=== PATIENT | female | born 1980 | race Caucasian/White ===

== ENCOUNTER 2016-06-12 13:23 | Emergency (ER) | payer MEDICAID ==
--- NOTE | 2016-06-12 13:38 | ER Document Report ---
ED Medical Screen (RME) - General Stated Complaint: POSSIBLE CYST UNDER ARM Mode of Arrival: Ambulatory Information source: Patient Notes: pt presents with cyst under left arm. Has appointment with surgeon on June 02 for treatment. Reports severe pain now. Prescribed tetracycline but medicaid wont' pay for med. pt reports pain, crying. I have greeted and performed a rapid initial assessment of this patient. A comprehensive ED assessment and evaluation of the patient, analysis of test results and completion of the medical decision making process will be conducted by additional ED providers. TRAVEL OUTSIDE OF THE [place] IN LAST 30 DAYS: No - Related Data Allergies/Adverse Reactions: No Known Allergies Allergy (Verified 03/26/16 04:38) Past Medical History - Past Medical History Cardiac Medical History: Reports: Hx Hypercholesterolemia, Hx Hypertension Pulmonary Medical History: Reports: Hx Asthma Renal/ Medical History: Reports: Hx Ovarian Cysts GI Medical History: Reports: Hx Gastroesophageal Reflux Disease Musculoskeltal Medical History: Reports Hx Musculoskeletal Trauma Psychiatric Medical History: Reports: Hx Bipolar Disorder Past Surgical History: Reports: Hx Section, Hx Cholecystectomy, Hx Genitourinary Surgery - D/C - Immunizations Immunizations up to date: Yes Hx Diphtheria, Pertussis, Tetanus Vaccination: Yes Physical Exam - Vital signs Vitals: Temp Pulse Resp BP Pulse Ox 98.3 F 100 20 142/92 H 97 06/12/16 13:32 06/12/16 13:32 06/12/16 13:32 06/12/16 13:32 06/12/16 13:32 Course - Vital Signs Vital signs: Temp Pulse Resp BP Pulse Ox 98.3 F 100 20 142/92 H 97 06/12/16 13:32 06/12/16 13:32 06/12/16 13:32 06/12/16 13:32 06/12/16 13:32
[2016-06-12] MEDS ORDERED: NORMAL SALINE 1000 ML 1,000 ML IV ONE (15:43)
[2016-06-12] MEDS ORDERED: KETOROLAC TROMETHAMINE INJ/PF 30 MG/1 ML SDV IV ONE (15:44)
[2016-06-12] MEDS ORDERED: HYDROMORPHONE HCL INJ/PF 2 MG/ML AMPULE IV ONE (15:44)
[2016-06-12] MEDS ORDERED: LIDOCAINE 1% INJ-PF (10 MG/ML) 30 ML SDV INFIL ONE (15:58)
--- NOTE | 2016-06-12 17:25 | ER Document Report ---
ED Skin Rash/Insect Bite/Abscs - General Chief Complaint: Abscess Stated Complaint: POSSIBLE CYST UNDER ARM Mode of Arrival: Ambulatory Information source: Patient Notes: 35 y/o F presents to ED c/o raised, tender area to left axilla over the last 3 days. Pt reports hx of chronic hidradenitis suppurativa and multiple similar episodes in the past. Marva was seen at surgical clinic by Dr. Moseley 4 days ago and prescribed course of Tetracycline and scheduled for follow-up visit in 10 days. States did not have abscess at the time but subsequently developed current symptoms. Denies fever or drainage. Marva has not filled prescription for tetracycline as she could not afford it but is going to get it filled Tuesday. TRAVEL OUTSIDE OF THE [place] IN LAST 30 DAYS: No - HPI Patient complains to provider of: Tender/swollen area Onset/Duration: Gradual Quality of pain: Achy Severity: Moderate Pain Level: 3 Skin Character: Abscess, Erythema, Tenderness Similar symptoms previously: Yes Recently seen / treated by doctor: Yes - Related Data Allergies/Adverse Reactions: No Known Allergies Allergy (Verified 06/12/16 13:37) Past Medical History - General Information source: Patient - Social History Smoking Status: Current Every Day Smoker Chew tobacco use (# tins/day): No Frequency of alcohol use: None Drug Abuse: None Lives with: Family Family History: Arthritis, CAD, CVA, DM, Hyperlipidemia, Hypertension Patient has suicidal ideation: No Patient has homicidal ideation: No - Past Medical History Cardiac Medical History: Reports: Hx Hypercholesterolemia, Hx Hypertension Pulmonary Medical History: Reports: Hx Asthma Endocrine Medical History: Reports: Hx Diabetes Mellitus Type 2 Renal/ Medical History: Reports: Hx Ovarian Cysts. Denies: Hx Peritoneal Dialysis GI Medical History: Reports: Hx Gastroesophageal Reflux Disease Musculoskeltal Medical History: Reports Hx Musculoskeletal Trauma Psychiatric Medical History: Reports: Hx Bipolar Disorder Past Surgical History: Reports: Hx Section, Hx Cholecystectomy, Hx Genitourinary Surgery - D/C - Immunizations Immunizations up to date: Yes Hx Diphtheria, Pertussis, Tetanus Vaccination: Yes Review of Systems - Review of Systems Constitutional: No symptoms reported EENT: No symptoms reported Cardiovascular: No symptoms reported Respiratory: No symptoms reported Gastrointestinal: No symptoms reported Genitourinary: No symptoms reported Female Genitourinary: No symptoms reported Musculoskeletal: No symptoms reported Skin: See HPI Hematologic/Lymphatic: No symptoms reported Neurological/Psychological: No symptoms reported -: Yes All other systems reviewed and negative Physical Exam - Vital signs Vitals: Temp Pulse Resp BP Pulse Ox 98.3 F 100 20 142/92 H 97 06/12/16 13:32 06/12/16 13:32 06/12/16 13:32 06/12/16 13:32 06/12/16 13:32 - General General appearance: Appears well, Alert In distress: None - Respiratory Respiratory status: No respiratory distress Chest status: Nontender Breath sounds: Normal Chest palpation: Normal - Cardiovascular Rhythm: Regular Heart sounds: Normal auscultation Murmur: No Pulses: Normal: Radial Normal capillary refill: Yes - Extremities General upper extremity: Normal inspection, Nontender, Normal color, Normal ROM , Normal strength, Normal temperature. No: Edema General lower extremity: Normal inspection, Nontender, Normal color, Normal ROM , Normal strength, Normal temperature, Normal weight bearing. No: Edema - Skin Skin Temperature: Warm Skin Moisture: Dry Skin Color: Normal Skin Turgor: Elastic Skin irregularity: Abscess - approximately 3 cm diameter raised area of tenderness and central fluctuance to left axilla. No surrounding cellulitis or drainage. Course - Re-evaluation Re-evalutation: 06/12/16 17:00 Pt hemodynamically stable, in no distress, afebrile, non-toxic. Pt presentation and physical exam findings were discussed with surgicalist on-call Dr. Romero who evaluated patient in the ED and performed left axilla abscess I& D at bedside. Surgicalist recommends discharge from ED with pain medication and encourage patient to fill previously prescribed Tetracycline prescription. Pt appears stable for discharge and agrees with home care, follow-up, and ED return precautions. - Vital Signs Vital signs: Temp Pulse Resp BP Pulse Ox 98.0 F 100 20 150/89 H 98 06/12/16 18:00 06/12/16 18:00 06/12/16 16:27 06/12/16 18:00 06/12/16 18:00 Discharge - Discharge Clinical Impression: Abscess Condition: Stable Disposition: HOME, SELF-CARE Additional Instructions: ABSCESS: You have an abscess (boil). This a pus-forming infection, usually due to staph. Some boils may be left to drain on their own, but most require lancing. From the time the tender lump first appears, it may be three or four days before the abscess is ready to yaya. Local heat and rest help at this stage of treatment. An antibiotic may prevent spread of the infection. Once the abscess is opened, packing may be placed into it. This is done so pus is not sealed inside by premature closure of the cavity. The packing will be removed at your follow-up visit or you may be advised to remove it yourself at home. Sometimes this packing must be replaced a few times during healing. The wound will heal with surprisingly little scar. Depending on the size and location of an abscess, healing can take one to four weeks. You may shower and wash the area around the incision site two or three times a day. Antibiotics may be prescribed, but are usually not necessary after an abscess has been drained. If you develop fever, chills, worsening pain, or increasing swelling in the area, call the doctor or return immediately. POST INCISION AND DRAINAGE: You have had an incision made to allow drainage of an abscess. The incision must remain open so that pus and debris can drain from the wound. If the abscess cavity is large, packing is placed. This keeps the tissues from collapsing and trapping pus inside, while the body shrinks the cavity. The packing may need to be replaced every day or two. The physician will instruct you on the packing. Keep a bulky dressing over the area. Replace it if it becomes saturated with blood or pus. Do not disturb the packing (if present). You may shower and cleanse the area with gentle soap and warm water two or three times a day. Local warmth may be soothing, and may promote faster healing. Return if you develop high fever or chills, or if you note spreading redness, increasing swelling, or increasing tenderness. ORAL NARCOTIC MEDICATION: You have been given a prescription for pain control. This medication is a narcotic. It's best taken with food, as nausea can result if taken on an empty stomach. Don't operate machinery or drive within six hours of taking this medication. Do not combine this medicine with alcohol, or with any medication which can cause sedation (such as cold tablets or sleeping pills) unless you get permission from the physician. Narcotics tend to cause constipation. If possible, drink plenty of fluids and eat a diet high in fiber and fruits. FOLLOW-UP CARE: Fill your prescription for the Tetracycline you were prescribed by surgeon. If you had packing placed in the abscess, remove it as instructed by the physician. If you have been referred to a physician for follow-up care, call the physicians office for an appointment as you were instructed or within the next two days. If you experience worsening or a significant change in your symptoms, return to the Emergency Department at any time for re-evaluation. Prescriptions: Hydrocodone/Acetaminophen [[place] 5-325 mg Tablet] 1 tab PO Q6H PRN #10 tablet PRN Reason: Forms: Elevated Blood Pressure Referrals: MARLON GARCÍA MD [Primary Care Provider] - Follow up as needed JOSE ROMERO MD [[facility]] - 06/14/16
--- NOTE | 2016-06-12 17:38 | OPERATIVE REPORT E ---
Operative Report NAME: EVERARDO STALLWORTH : 1980 AGE: 35Y DATE OF SURGERY: 06/12/2016 ROOM: PREOPERATIVE DIAGNOSIS: Consultation from emergency room physician for evaluation and management of severe hydradenitis of the left axillary area with a complex abscess. POSTOPERATIVE DIAGNOSIS: OPERATION: Incision and drainage of complex left axillary area soft tissue abscess. SURGEON: JOSE RICHARDSON M.D. ANESTHESIA: TISSUE REMOVED OR ALTERED: PROCEDURE DESCRIPTION: The procedure was done at the bedside after informed consent. She was given Dilaudid and Toradol IV. The area was cleansed and then also 1% lidocaine injection. An elliptical incision was made at the most indirect part of the left axillary abscess, which was about 3-4 cm size and about 20 mL of the pus was drained. Some of the loculations were broken down. The entirety of this cavity was now irrigated and lightly packed and dressings were applied. Tolerated the procedure very well. DICTATING PHYSICIAN: JOSE RICHARDSON M.D. [id number] PHY#: [id number] ID: [id number] JOB#: [id number] ACCT: [id number] cc:JOSE RICHARDSON M.D. >
[2016-06-12 18:09] VITALS: BP 150/89
== END 2016-06-12 18:05 | disposition home or self-care (01) ==
LOC: ER 13:23
DX: L02.412 Cutaneous abscess of left axilla (principal); F17.210 Nicotine dependence, cigarettes, uncomplicated
CPT/HCPCS: 99283; 96374; 96375; J3490; J1885; J1170; J7030

== ENCOUNTER 2016-08-18 12:15 | Day surgery (SDC) | payer MEDICAID ==
[2016-08-10 09:26] VITALS: BP 124/80
[~2016-08-18 12:15] MED LIST: ACETAMINOPHEN 100 ML IV ONE; BUPIVACAINE HCL 0.5 % INJ/PF 30 ML SDV ONE; CEFAZOLIN 1 GM/D5W RTU 1 GM/50 ML RTUPB IV PRN; DEXAMETHASONE SOD PHOSPHATE INJ 4 MG/1 ML VIAL ONE; DEXTROSE 5%-LACTATED RINGERS 1,000 ML IV PRN; FENTANYL CITRATE INJ/PF 250 MCG/5 ML AMPULE ONE; HYDROMORPHONE HCL INJ/PF 2 MG/ML AMPULE ONE; LACTATED RINGERS 1000 ML IV PRN; LIDOCAINE 0.5% INJ-PF (5 MG/ML) 50 ML SDV SUBCUT PRN; LIDOCAINE 1%/EPINEPHRINE INJ 20 ML VIAL ONE; LIDOCAINE 2% INJ-PF (20 MG/ML) 10 ML AMPUL ONE; MIDAZOLAM 2 MG/2 ML INJ ONE; ONDANSETRON HCL INJ/PF 4 MG/2 ML SDV ONE; PROPOFOL INJ 200 MG/20 ML VIAL IV ONE; ROCURONIUM BROMIDE INJ 50 MG/5 ML VIAL IV ONE; SUCCINYLCHOLINE CHLORIDE INJ 200 MG/10 ML VIAL ONE
[2016-08-18] MEDS ORDERED: FENTANYL CITRATE INJ/PF 100 MCG/2 ML AMPUL ONE ×2 (16:02→16:19)
[2016-08-18] MEDS ORDERED: LORAZEPAM INJ 2 MG/1 ML VIAL ONE (16:06)
[2016-08-18] MEDS ORDERED: HYDROMORPHONE HCL INJ/PF 2 MG/ML AMPULE ONE (16:06)
[2016-08-18] MEDS ORDERED: ALBUTEROL SULFATE HFA (90 MCG/PUFF) 200 PUFF/8.5 GM MDI IH ONE (16:16)
--- NOTE | 2016-08-18 16:42 | OPERATIVE REPORT E ---
Operative Report NAME: EVERARDO STALLWORTH : 1980 AGE: 35Y DATE OF SURGERY: ROOM: PREOPERATIVE DIAGNOSIS: ADVANCED, CHRONIC AXILLARY HIDRADENITIS SUPPURATIVA. POSTOPERATIVE DIAGNOSIS: ADVANCED, CHRONIC AXILLARY HIDRADENITIS SUPPURATIVA. OPERATION: Wide, complete excision of bilateral axillary skin and subcutaneous tissue including all involved hidradenitis suppurativa infection and chronic tracts with closure over bilateral axillary drains. SURGEON: ASHLEY MONTESINOS M.D. EDUCATIONAL/DEVELOPMENT ASSISTANT: Aiden Dennis ANESTHESIA: General. COMPLICATIONS: None. ESTIMATED BLOOD LOSS: 150 mL. DRAINS: Two large Liu in left and right axilla. PROCEDURE: The patient was seen in the preop holding area, taken to the operating room where general anesthesia was induced. Of note, patient is continuing to smoke and has significant bronchospasm after induction. The breasts were taped inferiorly, both arms abducted and both axillae were exposed. The findings were significant for active acute infection as well as chronic infection involving extensive tissue of both axilla extending over a surface area of approximately 10 cm x 15 cm on each side. Because the patient had failed outpatient and inpatient medical management over a 25-year period, it was felt that we had little to offer the patient shy of complete tissue extirpation. We proceeded on the patient's right side after a surgical timeout was conducted. Using a #10 blade, we created a large, crescent-shaped, elliptical excision of skin going from the anterior axilla towards the chest wall and then back towards the posterior axilla. The incision was longer and deeper on the chest wall than on the axilla. Skin and superficial as well as deep subcutaneous tissue was excised using cautery and scissors. The final portion of skin and subcutaneous tissue contained all involved infection. The final defect was approximately 10 x 15 cm. A large Liu drain was placed in the inferior skin flap, secured to the skin with 2-0 Prolene suture. The defect was closed with running as well as interrupted 2-0 Vicryl suture and approximated with skin glue. The identical procedure was performed on the left axilla, again performing a wide excision down to the deep subcutaneous tissue. Again, all infection was excised with the tissue flap. Another Liu was placed in the inferior skin flap along the chest wall and the wound closed with running and interrupted 2-0 Vicryl suture, skin glue applied. Both drains hooked to bulb suction which created a nice negative pressure. Sterile dressings were applied. The patient tolerated the procedure well, extubated and taken to the recovery room in stable condition at the time of this dictation. DICTATING PHYSICIAN: ASHLEY MONTESINOS M.D. [id number] PHY#: [id number] ID: [id number] JOB#: [id number] ACCT: [id number] cc:ASHLEY MONTESINOS M.D. >
[2016-08-18] MEDS ORDERED: OXYCODONE-ACETAMINOPHEN 5-325 MG TABLET ONE (17:09)
== END 2016-08-18 18:15 | disposition home or self-care (01) ==
LOC: OROUT 12:15
PROVIDERS: ATTEND Surgery
PROC: 0JBD0ZZ Excision of Right Upper Arm Subcutaneous Tissue and Fascia, Open Approach (ICD-10-PCS; 2016-08-18)
PROC: 0JBF0ZZ Excision of Left Upper Arm Subcutaneous Tissue and Fascia, Open Approach (ICD-10-PCS; principal; 2016-08-18 14:30)
DX: L73.2 Hidradenitis suppurativa (principal); M19.90 Unspecified osteoarthritis, unspecified site; F32.9 Major depressive disorder, single episode, unspecified; F17.210 Nicotine dependence, cigarettes, uncomplicated; E66.9 Obesity, unspecified; E78.00 Pure hypercholesterolemia, unspecified; E11.9 Type 2 diabetes mellitus without complications; G47.00 Insomnia, unspecified; Z79.84 Long term (current) use of oral hypoglycemic drugs; Z79.899 Other long term (current) drug therapy; G47.33 Obstructive sleep apnea (adult) (pediatric); Z68.43 Body mass index [BMI] 50.0-59.9, adult
CPT/HCPCS: 82962; 81025; 88304 ×2; 11450; J2250; J0690; J3490 ×3; J1100; J3010 ×2; J1170; J2060; J0330; J2405; J2704; J0131; 400

== ENCOUNTER 2016-09-02 15:00 | Day surgery (SDC) | payer MEDICAID ==
[~2016-09-02 15:00] MED LIST changes: -ACETAMINOPHEN 100 ML IV ONE; -BUPIVACAINE HCL 0.5 % INJ/PF 30 ML SDV ONE; -CEFAZOLIN 1 GM/D5W RTU 1 GM/50 ML RTUPB IV PRN; -DEXAMETHASONE SOD PHOSPHATE INJ 4 MG/1 ML VIAL ONE; -DEXTROSE 5%-LACTATED RINGERS 1,000 ML IV PRN; -FENTANYL CITRATE INJ/PF 250 MCG/5 ML AMPULE ONE; -HYDROMORPHONE HCL INJ/PF 2 MG/ML AMPULE ONE; -LACTATED RINGERS 1000 ML IV PRN; -LIDOCAINE 0.5% INJ-PF (5 MG/ML) 50 ML SDV SUBCUT PRN; -LIDOCAINE 1%/EPINEPHRINE INJ 20 ML VIAL ONE; -LIDOCAINE 2% INJ-PF (20 MG/ML) 10 ML AMPUL ONE; -MIDAZOLAM 2 MG/2 ML INJ ONE; -ONDANSETRON HCL INJ/PF 4 MG/2 ML SDV ONE; -PROPOFOL INJ 200 MG/20 ML VIAL IV ONE; -ROCURONIUM BROMIDE INJ 50 MG/5 ML VIAL IV ONE
[2016-09-02] MEDS ORDERED: VANCOMYCIN HCL 1,000 MG in DEXTROSE 5%-WATER 250 ML IV PRN (15:30)
[2016-09-02] MEDS ORDERED: NORMAL SALINE 1000 ML 1,000 ML IV PRN (15:46)
[2016-09-02 16:02] LABS: HEMOGLOBIN 12.3 g/dL (12.0-15.5); HGB HCT DIFFERENCE -0.1; MEAN CORPUSCULAR HEMOGLOBIN 27.9 pg (27.0-33.4); MEAN CORPUSCULAR HGB CONC 33.2 g/dL (32.0-36.0); MEAN CORPUSCULAR VOLUME 84 fl (80-97); RED BLOOD COUNT 4.42 10^6/uL (3.72-5.28); RED CELL DISTRIBUTION WIDTH 14.7 % (11.5-14.0); WHITE BLOOD COUNT 8.8 10^3/uL (4.0-10.5)
[2016-09-02 16:27] LABS: ANION GAP 10 (5-19); BLOOD UREA NITROGEN 15 mg/dL (7-20); CARBON DIOXIDE 25 mmol/L (22-30); CHLORIDE 105 mmol/L (98-107); CREATININE RESULT 0.74 mg/dL (0.52-1.25); GLUCOSE 92 mg/dL (75-110); POTASSIUM 4.2 mmol/L (3.6-5.0)
[2016-09-02] MEDS ORDERED: LIDOCAINE 0.5% INJ-PF (5 MG/ML) 50 ML SDV ONE (17:13)
[2016-09-02] MEDS ORDERED: ONDANSETRON HCL INJ/PF 4 MG/2 ML SDV ONE (17:23)
[2016-09-02] MEDS ORDERED: HYDROMORPHONE HCL INJ/PF 2 MG/ML AMPULE ONE (17:23)
[2016-09-02] MEDS ORDERED: LIDOCAINE 2% INJ-PF (20 MG/ML) 10 ML AMPUL ONE (17:23)
[2016-09-02] MEDS ORDERED: MIDAZOLAM 2 MG/2 ML INJ ONE (17:23)
[2016-09-02] MEDS ORDERED: IBUPROFEN INJ 800 MG/8 ML VIAL IV ONE (17:24)
[2016-09-02] MEDS ORDERED: PROPOFOL INJ 200 MG/20 ML VIAL IV ONE (17:24)
[2016-09-02] MEDS ORDERED: ACETAMINOPHEN 100 ML IV ONE (17:24)
--- NOTE | 2016-09-02 17:33 | HISTORY AND PHYSICAL E ---
History and Physical NAME: EVERARDO STALLWORTH : 1980 AGE: 35Y ADMITTED: 09/02/2016 ROOM: 209 CHIEF COMPLAINT: Abdominal pain. HISTORY OF PRESENT ILLNESS: This is a 35-year-old female who complained of abdominal pain for the past 2 to 3 days. She was being seen at the surgical clinic for hydradenitis when she complained that she had some abdominal pain for the past 2 days. She was then examined and noted to have abdominal abscess. She claims she had a cyst in that area just to the right of the umbilicus. This was bigger yesterday according to the patient, but her tried squeeze out some of the secretions, and size has gotten to half from yesterday. PAST MEDICAL HISTORY: History of hydradenitis. PAST SURGICAL HISTORY: Right axilla 2 weeks ago and today the left side. Both of these were done by Dr. Moseley. She had a tubal ligation, section about 2 years ago. She uses CPAP for the past 5 years. She has been diagnosed with diabetes for the past 2 years and has been taking metformin twice a day. SOCIAL HISTORY: Smokes about a pack a day but is on a nicotine patch at this time. Denies drinking or drug use. ALLERGIES: None known. FAMILY HISTORY: Positive for diabetes and heart disease and strokes. REVIEW OF SYSTEMS: Complaining of headaches which have been attributed to using the CPAP. Denies any sore throat, cough, or chest pain. No shortness of breath. Pains in both axillae attributed to hydradenitis. No diarrhea, constipation, or dysuria. No nausea or vomiting. No balance problems. No ear or visual problems. No easy bruisability. The rest of the systems are unremarkable. The patient complained of pain in the abdominal wall. PHYSICAL EXAMINATION: GENERAL: A well-developed, slightly obese female, alert and oriented complaining of abdominal wall pain. NECK: Supple. No thyromegaly. LUNGS: Clear. HEART: Regular sinus rhythm. ABDOMEN: Revealed mass in the right side to the umbilicus roughly measuring about 8 x 8 cm. The patient claims that she is known to have a cyst at this area, and she feels that it has been infected and now it is an abscess. EXTREMITIES: No edema. IMPRESSION: 1. Abdominal wall abscess. 2. Diabetes mellitus. PLAN: 1. Start her on IV antibiotics. 2. Drain the abscess in the OR and lavage it and pack the area. DICTATING PHYSICIAN: JENNY SQUIRES M.D. [id number] PHY#: [id number] ID: [id number] JOB#: [id number] ACCT: [id number] cc:JENNY SQUIRES M.D. >
[2016-09-02] MEDS ORDERED: MEPERIDINE HCL/PF INJ 25 MG/1 ML DISP.SYRIN IV PRN (18:06)
[2016-09-02] MEDS ORDERED: MORPHINE SULFATE 10 MG/ML INJ IV PRN ×2 (18:06→19:05)
[2016-09-02] MEDS ORDERED: DIPHENHYDRAMINE HCL 50 MG/ML VIAL IV PRN (18:06)
[2016-09-02] MEDS ORDERED: OXYCODONE-ACETAMINOPHEN 5-325 MG TABLET PO PRN ×3 (18:06→19:06)
[2016-09-02] MEDS ORDERED: FENTANYL CITRATE INJ/PF 100 MCG/2 ML AMPUL IV PRN ×3 (18:06)
[2016-09-02] MEDS ORDERED: PROMETHAZINE HCL INJ 25 MG/1 ML VIAL IV PRN ×2 (18:06)
[2016-09-02] MEDS ORDERED: ONDANSETRON HCL INJ/PF 4 MG/2 ML SDV IV PRN (18:06)
[2016-09-02] MEDS: FENTANYL CITRATE INJ/PF 100 MCG/2 ML AMPUL ONE ×2 (19:13→19:18)
--- NOTE | 2016-09-02 19:54 | OPERATIVE REPORT E ---
Operative Report NAME: EVERARDO STALLWORTH : 1980 AGE: 35Y DATE OF SURGERY: 09/02/2016 ROOM: 209 PREOPERATIVE DIAGNOSIS: Abscess of the abdominal wall. POSTOPERATIVE DIAGNOSIS: Abscess of the abdominal wall. OPERATION: Incision and drainage and lavage of abdominal wall abscess. SURGEON: JENNY SQUIRES M.D. ANESTHESIA: General. INDICATIONS: This 35-year-old female who is a diabetic noted to have pain along the abdominal wall just to the right of the umbilicus. The patient claims she had a cyst of this area and it may have been infected. She has been complaining of pain in the area for the past 2-3 days and worse today. Her tried to drain it yesterday, and the size of the inflamed area has somewhat decreased. DESCRIPTION OF PROCEDURE: After adequate general anesthesia, the patient was placed in supine position and the abdomen prepped and draped in the usual sterile fashion. After adequate timeout, a small incision made over the area that is partly draining. A lot of pus was expressed out, and cultures were obtained. With the use of a probe, the area of the abscess was noted to be at least 3 cm distally, and this was then incised over the hemostat. There was more drainage noted. The hemostat was again placed proximally, and this time, a shallower, roughly about 1 cm, was noted. This was then incised. Hemostasis was then obtained with cautery. The cavity roughly measured about 4 cm in diameter. A pulsed lavage was then done to irrigate the area, and at least 3 L of saline were used. Next, the cavity which may be the wall of the cyst was subsequently coagulated with cautery. Hopefully, if this is a true cyst, the risks of it coming back will be less. Adequate hemostasis was then noted. The cavity roughly measured about 4 cm in diameter by about 3 cm deep. Next, the cavity was then packed with 1/4-inch Iodoform gauze. Sterile dressing was placed on top. Needle, instrument and sponge counts were all correct, and estimated blood loss was minimal. The patient tolerated the procedure well and went to recovery room in satisfactory condition. DICTATING PHYSICIAN: JENNY SQUIRES M.D. [id number] PHY#: [id number] ID: [id number] JOB#: [id number] ACCT: [id number] cc:JENNY SQUIRES M.D. >
[2016-09-02 23:06] VITALS: BP 146/80
--- NOTE | 2016-09-11 06:39 | DISCHARGE SUMMARY E ---
Discharge Summary NAME: EVERARDO STALLWORTH : 1980 AGE: 35Y ADMITTED: 09/02/2016 DISCHARGED: 09/02/2016 PROCEDURE DONE: Incision and drainage of abdominal wall abscess on 09/02/[address] Padilla. FINAL DIAGNOSIS: Abdominal wall abscess. SUMMARY: This is a 35-year-old female who underwent incision and drainage of abdominal wall abscess. It was also pulsed lavaged, and the wound subsequently packed with Iodoform gauze. Postoperatively, patient's symptoms decreased and given p.o. antibiotics and pain medication on the day of discharge which was later that day, 09/02/2016. Patient to be followed up in the Surgical Clinic primarily for removal of the packing in the next 2 days. Patient advised to have regular diet and no heavy lifting for the next 2-3 days. DICTATING PHYSICIAN: JENNY PADILLA M.D. [id number] PHY#: [id number] ID: [id number] JOB#: [id number] ACCT: [id number] cc:JENNY PADILLA M.D. >
== END 2016-09-02 23:05 | disposition home or self-care (01) ==
LOC: OROUT 15:00 → UNDODISIN 23:05 → OROUT 23:05 → EDSTATUS 09-06 10:32
PROVIDERS: ATTEND Surgery
PROC: 0H97XZZ Drainage of Abdomen Skin, External Approach (ICD-10-PCS; principal; 2016-09-02 17:30)
DX: L02.211 Cutaneous abscess of abdominal wall (principal); B95.4 Other streptococcus as the cause of diseases classified elsewhere; E11.9 Type 2 diabetes mellitus without complications; F17.210 Nicotine dependence, cigarettes, uncomplicated; E66.9 Obesity, unspecified; M19.90 Unspecified osteoarthritis, unspecified site; E78.00 Pure hypercholesterolemia, unspecified; F32.9 Major depressive disorder, single episode, unspecified; Z68.43 Body mass index [BMI] 50.0-59.9, adult; Z79.84 Long term (current) use of oral hypoglycemic drugs
CPT/HCPCS: 10060; 36415; 87070; 87205; 85027; 87075; 87077; 80048; J2250; J3010; J1170; J0330; J2405; J7060; J2704; J3370; J3490; J0131; J1741; 300; 800; A6266

== ENCOUNTER 2016-11-19 05:37 | Emergency (ER) | payer MEDICAID ==
[2016-11-19] MEDS ORDERED: PREDNISONE 20 MG TABLET PO ONE (06:22)
[2016-11-19] MEDS ORDERED: FAMOTIDINE 20 MG TABLET PO ONE (06:22)
[2016-11-19] MEDS ORDERED: DIPHENHYDRAMINE HCL 25 MG CAPSULE PO ONE (06:33)
--- NOTE | 2016-11-19 06:35 | ER Document Report ---
ED General - General Chief Complaint: Allergic Reaction Stated Complaint: POSSIBLE ALLERGIC REACTION Time Seen by Provider: 11/19/16 06:27 Mode of Arrival: Ambulatory Information source: Patient Notes: 36-year-old female presents with complaints of allergic reaction. Patient notes that she awoke around 4:00 this morning with her hands and feet itching. Patient denies any shortness of breath difficulty breathing or swallowing. Notes initially her tongue was swelling but after she took 125 mg Benadryl her symptoms have since resolved. Patient does admit to swelling in the hand still TRAVEL OUTSIDE OF THE [place] IN LAST 30 DAYS: No - HPI Onset: Just prior to arrival Onset/Duration: Sudden Quality of pain: No pain Severity: Mild Pain Level: Denies Associated symptoms: Other Exacerbated by: Denies Relieved by: Denies Similar symptoms previously: No Recently seen / treated by doctor: No - Related Data Allergies/Adverse Reactions: No Known Allergies Allergy (Verified 08/10/16 09:29) Past Medical History - Social History Smoking Status: Never Smoker Cigarette use (# per day): No Chew tobacco use (# tins/day): No Smoking Education Provided: No Family History: Arthritis, CAD, CVA, DM, Hyperlipidemia, Hypertension Patient has suicidal ideation: No Patient has homicidal ideation: No - Past Medical History Cardiac Medical History: Reports: Hx Hypercholesterolemia, Hx Hypertension - borderline no meds Denies: Hx Coronary Artery Disease, Hx Heart Attack Pulmonary Medical History: Denies: Hx Asthma, Hx Bronchitis, Hx COPD, Hx Pneumonia Neurological Medical History: Denies: Hx Cerebrovascular Accident, Hx Seizures Endocrine Medical History: Reports: Hx Diabetes Mellitus Type 2 Renal/ Medical History: Reports: Hx Ovarian Cysts. Denies: Hx Peritoneal Dialysis GI Medical History: Reports: Hx Gastroesophageal Reflux Disease Musculoskeltal Medical History: Reports Hx Arthritis - rt knee, Reports Hx Musculoskeletal Trauma Psychiatric Medical History: Reports: Hx Bipolar Disorder, Hx Depression Past Surgical History: Reports: Hx Section, Hx Cholecystectomy, Hx Genitourinary Surgery - D/C - Immunizations Immunizations up to date: Yes Hx Diphtheria, Pertussis, Tetanus Vaccination: Yes Review of Systems - Review of Systems Notes: REVIEW OF SYSTEMS: CONSTITUTIONAL : Denies fever, chills, or sweats. Denies recent illness. EENT: Denies eye, ear, throat, or mouth pain or symptoms. Denies nasal or sinus congestion or discharge. Denies throat, tongue, or mouth swelling or difficulty swallowing. CARDIOVASCULAR: Denies chest pain. Denies palpitations or racing or irregular heart beat. Denies ankle edema. RESPIRATORY: Denies cough, cold, or chest congestion. Denies shortness of breath, difficulty breathing, or wheezing. GASTROINTESTINAL: Denies abdominal pain or distention. Denies nausea, vomiting , or diarrhea. Denies blood in vomitus, stools, or per rectum. Denies black, tarry stools. Denies constipation. GENITOURINARY: Denies difficulty urinating, painful urination, burning, frequency, blood in urine, or discharge. FEMALE GENITOURINARY: Denies vaginal bleeding, heavy or abnormal periods, irregular periods. Denies vaginal discharge or odor. MUSCULOSKELETAL: Denies back or neck pain or stiffness. Denies joint pain or swelling. SKIN: Admits to itching swelling of the hands and feet HEMATOLOGIC : Denies easy bruising or bleeding. LYMPHATIC: Denies swollen, enlarged glands. NEUROLOGICAL: Denies confusion or altered mental status. Denies passing out or loss of consciousness. Denies dizziness or lightheadedness. Denies headache. Denies weakness or paralysis or loss of use of either side. Denies problems with gait or speech. Denies sensory loss, numbness, or tingling. Denies seizures. PSYCHIATRIC: Denies anxiety or stress. Denies depression, suicidal ideation, or homicidal ideation. ALL OTHER SYSTEMS REVIEWED AND NEGATIVE. PHYSICAL EXAMINATION: GENERAL: Well-appearing, well-nourished and in no acute distress. HEAD: Atraumatic, normocephalic. EYES: Pupils equal round and reactive to light, extraocular movements intact, conjunctiva are normal. ENT: Nares patent, oropharynx clear without exudates. Moist mucous membranes. NECK: Normal range of motion, supple without lymphadenopathy LUNGS: Breath sounds clear to auscultation bilaterally and equal. No wheezes rales or rhonchi. HEART: Regular rate and rhythm without murmurs ABDOMEN: Soft, nontender, nondistended abdomen. No guarding, no rebound. No masses appreciated. Female : deferred Musculoskeletal: Normal range of motion, no pitting or edema. No cyanosis. NEUROLOGICAL: Cranial nerves grossly intact. Normal speech, normal gait. Normal sensory, motor exams PSYCH: Normal mood, normal affect. SKIN: Mild edema of the bilateral hands Dictation was performed using [employer] voice recognition software Physical Exam - Vital signs Vitals: Temp Pulse Resp BP Pulse Ox 98.5 F 81 20 165/89 H 95 11/19/16 05:50 11/19/16 05:50 11/19/16 05:50 11/19/16 05:50 11/19/16 05:50 Course - Re-evaluation Re-evalutation: 11/19/16 06:44 There is absolutely no airway involvement patient is resting comfortably symptoms have been ongoing now for approximately 2-1/2 hours and the patient's in no distress. I expect this to be a mild allergic reaction, she will be given steroids with understand that her diabetes may worsen, patient states she understands this. Patient instructed to return immediately if there is any worsening symptoms any difficulty breathing. After performing a Medical Screening Examination, I estimate there is LOW risk for AIRWAY COMPROMISE, ANAPHYLAXIS, CELLULITIS, EPIGLOTTIS, or NECROTIZING FASCIITIS, thus I consider the discharge disposition reasonable. Also, there is no evidence or peritonitis, sepsis, or toxicity. I have reevaluated this patient multiple times and no significant life threatening changes are noted. The patient and I have discussed the diagnosis and risks, and we agree with discharging home with close follow-up with the understanding that symptoms and presentations can change. We also discussed returning to the Emergency Department immediately if new or worsening symptoms occur. We have discussed the symptoms which are most concerning (e.g., difficulty breathing or swallowing , fever, changing or worsening pain) that necessitate immediate return. - Vital Signs Vital signs: Temp Pulse Resp BP Pulse Ox 98.5 F 81 20 165/89 H 95 11/19/16 05:50 11/19/16 05:50 11/19/16 05:50 11/19/16 05:50 11/19/16 05:50 Discharge - Discharge Clinical Impression: Allergic reaction Qualifiers: Encounter type: initial encounter Qualified Code(s): T78.40XA - Allergy, unspecified, initial encounter HTN (hypertension) Qualifiers: Hypertension type: essential hypertension Qualified Code(s): I10 - Essential ( primary) hypertension Condition: Stable Disposition: HOME, SELF-CARE Instructions: Acute Allergic Reaction ([facility]) Prescriptions: Diphenhydramine HCl [Benadryl] 50 mg PO Q6 5 Days capsule Famotidine [Pepcid 20 mg Tablet] 20 mg PO DAILY #5 tablet Prednisone 60 mg PO DAILY #5 tablet Referrals: ADOLFO SHIPLEY MD [NO LOCAL MD] - Follow up tomorrow
[2016-11-19 06:50] VITALS: BP 160/82
== END 2016-11-19 06:51 | disposition home or self-care (01) ==
LOC: ER 05:37
DX: T78.40XA Allergy, unspecified, initial encounter (principal); I10 Essential (primary) hypertension
CPT/HCPCS: 99283; J3490 ×2; J7512

== ENCOUNTER 2017-08-06 20:37 | Emergency (ER) | payer SELFPAY ==
[2017-08-06] MEDS ORDERED: HYDROMORPHONE HCL INJ/PF 2 MG/ML AMPULE IM ONE (23:19)
[2017-08-06] MEDS ORDERED: HYDROCODONE/ACETAMINOPHEN 5-325 MG (6 TAB/ER DISP) PO PRN (23:20)
[2017-08-06] MEDS ORDERED: CEFTRIAXONE INJ 1000 MG VIAL IM ONE (23:20)
[2017-08-06] MEDS ORDERED: LIDOCAINE 1% INJ-PF (10 MG/ML) 30 ML SDV INJ ONE (23:20)
--- NOTE | 2017-08-06 23:30 | ER Document Report ---
ED General - General Chief Complaint: Cyst Stated Complaint: POSSIBLE ABSCESS Time Seen by Provider: 08/06/17 22:25 Mode of Arrival: Ambulatory Information source: Patient TRAVEL OUTSIDE OF THE [place] IN LAST 30 DAYS: No - HPI Notes: 28-year-old female presents to the ER today with complaints of right-sided groin pain, reports she feels like she is starting with a cellulitis possible abscess. Has not been applying warm compress to site. Pain is 8 out of 10, throbbing achy. Has tried [id number] ibuprofen without relief. History of abscesses in the past. Worse with time, nothing makes better. Denies fevers , chills, chest pain,palpitations, shortness of breath, dyspnea, nausea, vomiting, diarrhea, abdominal pain, hematuria,blurred vision, double vision, loss of vision, speech changes, LH, dizziness, syncope, headaches, wheezing, ST , URI, neck pain, weakness, bowel or bladder dysfunction, saddle anesthesia, numbness or tingling in bilateral upper or lower extremities equally, muscle paralysis, weakness in bilateral upper or lower extremities equally or rash. Denies IV drug use. - Related Data Allergies/Adverse Reactions: No Known Allergies Allergy (Verified 08/10/16 09:29) Past Medical History - General Information source: Patient - Social History Smoking Status: Unknown if Ever Smoked Family History: Arthritis, CAD, CVA, DM, Hyperlipidemia, Hypertension Patient has suicidal ideation: No Patient has homicidal ideation: No - Past Medical History Cardiac Medical History: Reports: Hx Hypercholesterolemia, Hx Hypertension - borderline no meds Denies: Hx Coronary Artery Disease, Hx Heart Attack Pulmonary Medical History: Denies: Hx Asthma, Hx Bronchitis, Hx COPD, Hx Pneumonia Neurological Medical History: Denies: Hx Cerebrovascular Accident, Hx Seizures Endocrine Medical History: Reports: Hx Diabetes Mellitus Type 2 Renal/ Medical History: Reports: Hx Ovarian Cysts. Denies: Hx Peritoneal Dialysis GI Medical History: Reports: Hx Gastroesophageal Reflux Disease Musculoskeltal Medical History: Reports Hx Arthritis - rt knee, Reports Hx Musculoskeletal Trauma Psychiatric Medical History: Reports: Hx Bipolar Disorder, Hx Depression Past Surgical History: Reports: Hx Section, Hx Cholecystectomy, Hx Genitourinary Surgery - D/C - Immunizations Immunizations up to date: Yes Hx Diphtheria, Pertussis, Tetanus Vaccination: Yes Review of Systems - Review of Systems Constitutional: No symptoms reported EENT: No symptoms reported Cardiovascular: No symptoms reported Respiratory: No symptoms reported Gastrointestinal: No symptoms reported Genitourinary: No symptoms reported Female Genitourinary: No symptoms reported Musculoskeletal: No symptoms reported Skin: See HPI Hematologic/Lymphatic: No symptoms reported Neurological/Psychological: No symptoms reported Physical Exam - Vital signs Vitals: Temp Pulse Resp BP Pulse Ox 99.2 F 84 18 149/60 H 96 08/06/17 21:19 08/06/17 21:19 08/06/17 21:19 08/06/17 21:19 08/06/17 21:19 - Notes Notes: PHYSICAL EXAMINATION: GENERAL: Well-appearing, well-nourished and in no acute distress. HEAD: Atraumatic, normocephalic. EYES: Pupils equal round and reactive to light, extraocular movements intact, conjunctiva are normal. ENT: Nares patent, oropharynx clear without exudates. Moist mucous membranes. NECK: Normal range of motion, supple without lymphadenopathy LUNGS: Breath sounds clear to auscultation bilaterally and equal. No wheezes rales or rhonchi. HEART: Regular rate and rhythm without murmurs ABDOMEN: Soft, nontender, nondistended abdomen. No guarding, no rebound. No masses appreciated. Female : deferred, metal sprayer protective coating in room [place]. 1 cm x 1 cm area of erythema, induration, swelling, no fluctuance noted. No surrounding erythema or lymphadenopathy. No open wounds or drainage. Musculoskeletal: Normal range of motion, no pitting or edema. No cyanosis. NEUROLOGICAL: Cranial nerves grossly intact. Normal speech, normal gait. Normal sensory, motor exams PSYCH: Normal mood, normal affect. SKIN: Warm, Dry, normal turgor, no rashes or lesions noted. Course - Re-evaluation Re-evalutation: Patient presents with symptoms most consistent with an acute cellulitis. Vitals within normal limits. Patient does not meet sepsis criteria is overall very well in appearance. Exam and history are not consistent with DVT. Patient will be started on coverage for both staph and strep. Discussed with patient the importance of applying hot compress 20 minutes on 20 minutes off several times a day, take antibiotic as directed and avoid manipulating the area. On reevaluation, patient's pain reduced from 10 out of 10 to 4 out of 10. Discussed importance of not driving, drinking alcohol or operating heavy machinery while taking medication. At this time will discharge with return precautions and follow-up recommendations. Verbal discharge instructions given a the bedside and opportunity for questions given. Medication warnings reviewed. Patient is in agreement with this plan and has verbalized understanding of return precautions and the need for primary care follow-up in the next 24-72 hours After performing a Medical Screening Examination, I estimate there is LOW risk for COMPARTMENT SYNDROME, TENDON RUPTURE, ACUTE NEUROVASCULAR INJURY, or RETAINED FOREIGN BODY, thus I consider the discharge disposition reasonable. Also, there is no evidence or peritonitis, sepsis, or toxicity. I have reevaluated this patient multiple times and no significant life threatening changes are noted. The patient and I have discussed the diagnosis and risks, and we agree with discharging home with close follow-up with the understanding that symptoms and presentations can change. We also discussed returning to the Emergency Department immediately if new or worsening symptoms occur. We have discussed the symptoms which are most concerning (e.g., changing or worsening pain, fever, numbness, weakness, cool or painful digits) that necessitate immediate return. - Vital Signs Vital signs: Temp Pulse Resp BP Pulse Ox 99.2 F 84 18 149/60 H 96 08/06/17 21:19 08/06/17 21:19 08/06/17 21:19 08/06/17 21:19 08/06/17 21:19 Discharge - Discharge Clinical Impression: Cellulitis Qualifiers: Site of cellulitis: trunk Site of cellulitis of trunk: groin Qualified Code(s) : L03.314 - Cellulitis of groin Condition: Good Disposition: ADMITTED OBSERVATION Instructions: MRSA Cellulitis ([facility]), Cellulitis ([facility]) Additional Instructions: Warm compress 20 minutes on 20 minutes off several times a day. Take antibiotic as directed. Do not drive, drink or operate heavy machinery while taking [place]. Follow-up with PCP within 1-2 days. Return to the emergency room if symptoms become worse. Return immediately for any new or worsening symptoms. Follow up with primary care provider, call tomorrow to make followup appointment. Prescriptions: Cephalexin [Cephalexin 500 MG Tablet] 1 tab PO BID #20 tablet Sulfamethoxazole/Trimethoprim [Bactrim Ds Tablet] 1 each PO BID #20 tablet Referrals: HONORIO YOO MD [ACTIVE STAFF] - Follow up as needed
[2017-08-07 00:10] VITALS: BP 130/87
== END 2017-08-07 00:10 | disposition home or self-care (01) ==
LOC: ER 20:37
DX: L03.314 Cellulitis of groin (principal); R10.31 Right lower quadrant pain; I10 Essential (primary) hypertension; E11.9 Type 2 diabetes mellitus without complications
CPT/HCPCS: 99284; 96372; J3490; J1170; J0696

== ENCOUNTER 2018-05-02 13:37 | Emergency (ER) | payer SELFPAY ==
[2018-05-02 13:51] VITALS: BP 134/84
[2018-05-02] MEDS ORDERED: OXYCODONE-ACETAMINOPHEN 5-325 MG TABLET PO ONE (14:14)
--- NOTE | 2018-05-02 14:16 | ER Document Report ---
ED Medical Screen (RME) - General Chief Complaint: Abscess Stated Complaint: SKIN ISSUE Time Seen by Provider: 05/02/18 13:47 TRAVEL OUTSIDE OF THE [place] IN LAST 30 DAYS: No - HPI Patient complains to provider of: Abscess in right axilla - Related Data Allergies/Adverse Reactions: No Known Allergies Allergy (Verified 05/02/18 13:38) Past Medical History - Social History Chew tobacco use (# tins/day): No Frequency of alcohol use: None Drug Abuse: None - Past Medical History Cardiac Medical History: Reports: Hx Hypercholesterolemia, Hx Hypertension - borderline no meds Denies: Hx Coronary Artery Disease, Hx Heart Attack Pulmonary Medical History: Denies: Hx Asthma, Hx Bronchitis, Hx COPD, Hx Pneumonia Neurological Medical History: Denies: Hx Cerebrovascular Accident, Hx Seizures Endocrine Medical History: Reports: Hx Diabetes Mellitus Type 2 Renal/ Medical History: Reports: Hx Ovarian Cysts. Denies: Hx Peritoneal Dialysis GI Medical History: Reports: Hx Gastroesophageal Reflux Disease Musculoskeltal Medical History: Reports Hx Arthritis - rt knee, Reports Hx Musculoskeletal Trauma Psychiatric Medical History: Reports: Hx Bipolar Disorder, Hx Depression Past Surgical History: Reports: Hx Section, Hx Cholecystectomy, Hx Genitourinary Surgery - D/C - Immunizations Immunizations up to date: Yes Hx Diphtheria, Pertussis, Tetanus Vaccination: Yes Physical Exam - Vital signs Vitals: Temp Pulse Resp BP Pulse Ox 98.2 F 85 18 134/84 H 99 05/02/18 13:50 05/02/18 13:50 05/02/18 13:50 05/02/18 13:50 05/02/18 13:50 Course - Vital Signs Vital signs: Temp Pulse Resp BP Pulse Ox 98.2 F 85 18 134/84 H 99 05/02/18 13:50 05/02/18 13:50 05/02/18 13:50 05/02/18 13:50 05/02/18 13:50
[2018-05-02] MEDS ORDERED: LIDOCAINE 1% INJ-PF (10 MG/ML) 30 ML SDV INJ ONE (14:27)
--- NOTE | 2018-05-02 14:33 | ER Document Report ---
HPI - HPI Time Seen by Provider: 05/02/18 13:47 Pain Level: 4 Notes: Patient is a 37-year-old female with a history of hidradenitis who presents emergency department complaining of an abscess to her right anterior axilla has been there for the last few days. Patient states that she has had multiple abscesses in these areas that needed an I&D performed. Patient states that she has not noticed any red streaking or purulence. She is eating and drinking without difficult he. She is urinating normally and denies drug allergies. No history of MRSA. No IV drug use. Denies any headache, fever, neck pain, URI, sore throat, chest pain, palpitations, syncope, cough, shortness of breath, wheeze, dyspnea, abdominal pain, nausea/vomiting/diarrhea, urinary retention, dysuria, hematuria. - ROS Systems Reviewed and Negative: Yes All other systems reviewed and negative - REPRODUCTIVE Reproductive: DENIES: : - DERM Skin Color: Normal Past Medical History - Social History Smoking Status: Current Every Day Smoker Chew tobacco use (# tins/day): No Frequency of alcohol use: None Drug Abuse: None Family History: Arthritis, CAD, CVA, DM, Hyperlipidemia, Hypertension Patient has suicidal ideation: No Patient has homicidal ideation: No - Past Medical History Cardiac Medical History: Reports: Hx Hypercholesterolemia, Hx Hypertension - borderline no meds Denies: Hx Coronary Artery Disease, Hx Heart Attack Pulmonary Medical History: Denies: Hx Asthma, Hx Bronchitis, Hx COPD, Hx Pneumonia Neurological Medical History: Denies: Hx Cerebrovascular Accident, Hx Seizures Endocrine Medical History: Reports: Hx Diabetes Mellitus Type 2 Renal/ Medical History: Reports: Hx Ovarian Cysts. Denies: Hx Peritoneal Dialysis GI Medical History: Reports: Hx Gastroesophageal Reflux Disease Musculoskeletal Medical History: Reports Hx Arthritis - rt knee, Reports Hx Musculoskeletal Trauma Psychiatric Medical History: Reports: Hx Bipolar Disorder, Hx Depression Past Surgical History: Reports: Hx Section, Hx Cholecystectomy, Hx Genitourinary Surgery - D/C - Immunizations Immunizations up to date: Yes Hx Diphtheria, Pertussis, Tetanus Vaccination: Yes Vertical Provider Document - CONSTITUTIONAL Agree With Documented VS: Yes Notes: PHYSICAL EXAMINATION: GENERAL: Well-appearing, well-nourished and in no acute distress. LUNGS: Breath sounds clear to auscultation bilaterally and equal. No wheezes rales or rhonchi. HEART: Regular rate and rhythm without murmurs, rubs, gallops. Musculoskeletal: FROM to passive/active. Strength 5+/5. Extremities: No cyanosis, clubbing, or edema b/l. Peripheral pulses 2+. Capillary refill less than 3 seconds. NEUROLOGICAL: Normal speech, normal gait. Normal sensory, motor exams PSYCH: Normal mood, normal affect. SKIN: Rt axilla: + fluctuant abscess noted rt anterior axilla with associated erythema, mild induration, and tenderness. No streaks or purulence. - INFECTION CONTROL TRAVEL OUTSIDE OF THE [place] IN LAST 30 DAYS: No Course - Re-evaluation Re-evalutation: 05/02/18 14:45 Patient is an afebrile, well-hydrated, 37-year-old female who presents to the emergency department with an abscess to her right axilla needing incision and drainage. Vitals are acceptable without significant tachycardia, tachypnea, or hypoxia. PE is otherwise unremarkable. Patient is nontoxic-appearing and is tolerating p.o. without difficulty. Incision and drainage was performed without any complications and packing was placed. Wound dressing was placed and wound instructions reviewed. Wound culture was obtained. No further labs or imaging warranted. Low suspicion for any sepsis, meningitis, SJS, or other systemic emergent condition at this time. Patient to monitor symptoms for any acute changes and seek medical attention if so. Recheck with your PCM in 2-3 days. Consider consult with the general surgeon. Return to the ED with any worsening/concerning symptoms as reviewed. Patient is in agreement. - Vital Signs Vital signs: Temp Pulse Resp BP Pulse Ox 98.2 F 85 18 134/84 H 99 05/02/18 13:50 05/02/18 13:50 05/02/18 13:50 05/02/18 13:50 05/02/18 13:50 Procedures - Incision and Drainage Right Axilla Time completed: 14:45 Type: Simple Anesthetic type: 1% Lidocaine mL's of anesthetic: 8 Blade size: 11 I&D procedure: Iodoform packing placed, Sterile dressing applied, Other - chlor hexadine/saline Incision Method: Incision made by scalpel Amount/type of drainage: moderate purulent Discharge - Discharge Clinical Impression: Abscess Condition: Stable Disposition: HOME, SELF-CARE Instructions: Post Incision and Drainage, Abscess ([facility]), Trimethoprim-Sulfa ([facility]), Cephalexin ([facility]) Additional Instructions: Do not shower or bathe for 24 hours. After 24 hours you may shower but no submersion of the wound under water. Keep the original dressing on the wound for 24 hours unless the drainage soaks through. Change the dressing daily thereafter and use a small amount of triple antibiotic ointment over the open wound. See your PCM in 2-3 days for recheck and continue direction for wound packing. Monitor for any signs of worsening pain or redness, streaks, and/or fever. Return to the ED if noticing any of the above symptoms or as needed. Take medications as directed. Prescriptions: Cephalexin Monohydrate [Keflex 500 mg Capsule] 500 mg PO TID #30 capsule Sulfamethoxazole/Trimethoprim [Bactrim Ds Tablet] 1 each PO BID #20 tablet Forms: Elevated Blood Pressure, Smoking Cessation Education Referrals: JENNY SQUIRES MD [ZEINAB BARBOSA] - Follow up as needed
== END 2018-05-02 15:18 | disposition home or self-care (01) ==
LOC: ER 13:37
PROC: 0H9BXZZ Drainage of Right Upper Arm Skin, External Approach (ICD-10-PCS; principal; 2018-05-02)
DX: L02.411 Cutaneous abscess of right axilla (principal); F17.200 Nicotine dependence, unspecified, uncomplicated; I10 Essential (primary) hypertension; E11.9 Type 2 diabetes mellitus without complications
CPT/HCPCS: 99283; 87070; 87205; 87075; 87077; 10060; J3490

== ENCOUNTER 2018-07-20 06:40 | Emergency (ER) | payer SELFPAY ==
[2018-07-20] MEDS ORDERED: ACETAMINOPHEN 325 MG TABLET PO ONE (08:38)
[2018-07-20] MEDS ORDERED: KETOROLAC TROMETHAMINE 60 MG/2 ML SDV IM ONE (08:38)
[2018-07-20] MEDS ORDERED: LIDOCAINE 5% (700 MG) TRANSDERMAL ADH..PATCH TP ONE (08:38)
--- NOTE | 2018-07-20 08:41 | ER Document Report ---
HPI - HPI Patient complains to provider of: LBP and rash to face Time Seen by Provider: 07/20/18 08:04 Pain Level: 5 Context: Pleasant 37-year-old female with no past medical history presents the emergency department for left lower back pain and rash on her face. The back pain started 3 days ago. She has had previous issues with back pain but none this severe. She states it is her "sciatica ". Pain radiates from her back around to her g roin. She denies any numbness in her extremities, saddle paresthesia, urinary retention, fevers, chills, IV drug use. She also complains of a rash on her face that started a few days ago. She does not know how it started, she has no autoimmune disorders and has not changed makeup or any new changes at all. She has not tried any steroid creams or anything else. She is concerned that it might be a staph infection because he has had those in the past. No other complaints. - REPRODUCTIVE Reproductive: DENIES: : - MUSCULOSKELETAL Musculoskeletal: REPORTS: Extremity pain Past Medical History - Social History Smoking Status: Current Every Day Smoker Chew tobacco use (# tins/day): No Frequency of alcohol use: Occasional Drug Abuse: None Family History: Arthritis, CAD, CVA, DM, Hyperlipidemia, Hypertension Patient has suicidal ideation: No Patient has homicidal ideation: No - Past Medical History Cardiac Medical History: Reports: Hx Hypercholesterolemia, Hx Hypertension - borderline no meds Denies: Hx Coronary Artery Disease, Hx Heart Attack Pulmonary Medical History: Denies: Hx Asthma, Hx Bronchitis, Hx COPD, Hx Pneumonia Neurological Medical History: Denies: Hx Cerebrovascular Accident, Hx Seizures Endocrine Medical History: Reports: Hx Diabetes Mellitus Type 2 Renal/ Medical History: Reports: Hx Ovarian Cysts. Denies: Hx Peritoneal Dialysis GI Medical History: Reports: Hx Gastroesophageal Reflux Disease Musculoskeletal Medical History: Reports Hx Arthritis - rt knee, Reports Hx Musculoskeletal Trauma Psychiatric Medical History: Reports: Hx Bipolar Disorder, Hx Depression Past Surgical History: Reports: Hx Section, Hx Cholecystectomy, Hx Genitourinary Surgery - D/C - Immunizations Immunizations up to date: Yes Hx Diphtheria, Pertussis, Tetanus Vaccination: Yes Vertical Provider Document - CONSTITUTIONAL Notes: PHYSICAL EXAMINATION: Reviewed vital signs and charting by RN GENERAL: Alert, interacts well. No acute distress. HEAD: Normocephalic, atraumatic. EYES: Pupils equal and round. Extraocular movements intact. ENT: Oral mucosa moist, tongue midline. NECK: Full range of motion. Supple. Trachea midline. ABDOMEN: soft, non-tender. Non-distended. Bowel sounds present. no McBurney's point tenderness, no [place] sign. EXTREMITIES: Moves all 4 extremities spontaneously. No edema, No cyanosis. Normal distal neurovascular exam BACK: No CVAT, tenderness to palpation across the left sacroiliac joint NEUROLOGIC: Oriented and appropriate. Normal speech. Strength 5/5 in bilateral upper extremities and right lower extremity, strength 4/5 secondary to pain in left lower extremity PSYCH: Normal affect, normal mood. SKIN: Warm, dry, normal turgor. Erythematous, peeling/scaling rash underneath both her cheeks in the nasolabial folds - INFECTION CONTROL TRAVEL OUTSIDE OF THE [place] IN LAST 30 DAYS: No Course - Re-evaluation Re-evalutation: 07/20/18 08:44 Well-appearing. Pain pattern consistent with sciatica. No red flags for epidural abscess or spinal injury. Unclear what the rashes but plan to trial a course of steroid cream. Could potentially be a staph infection to have given her a prescription for Keflex to hold to see if the steroid cream works. If it does not work I instructed her to fill it. Does not have a lupus pattern. And patient does not have any autoimmune illnesses. - Vital Signs Vital signs: Temp Pulse Resp BP Pulse Ox 97.8 F 87 18 157/86 H 97 07/20/18 06:47 07/20/18 06:47 07/20/18 06:47 07/20/18 06:47 07/20/18 06:47 Discharge - Discharge Clinical Impression: Rash Back pain Qualifiers: Back pain location: low back pain Chronicity: acute Back pain laterality: left Sciatica presence: with sciatica Sciatica laterality: sciatica of left side Qualified Code(s): M54.42 - Lumbago with sciatica, left side Condition: Good Disposition: HOME, SELF-CARE Instructions: Low Back Pain ([facility]) Additional Instructions: You have been seen in the Emergency Department (ED) today for back pain. Your workup and exam have not shown any acute abnormalities and you are likely suffering from muscle strain or possible problems with your discs, but there is no treatment that will fix your symptoms at this time. Please take ibuprofen that has been prescribed as directed. You should also purchase a local lidocaine cream such as "aspercreme with lidocaine" and use per bottle instructions to the affected area. Apply heat to the area as often as you are able. Continue to keep active and avoid prolonged periods of bed rest. Please follow up with your doctor as soon as possible regarding today's ED visit and your back pain. Return to the ED for worsening back pain, fever, weakness or numbness of either leg, or if you develop either (1) an inability to urinate or have bowel movements, or (2) loss of your ability to control your bathroom functions (if you start having "accidents"), or if you develop other new symptoms that concern you.concern you. For your rash, I suggest trying a course of hydrocortisone 1% cream. You can apply it 3 times a day over the affected areas. This is [id number]. If that does not work, then you can fill the prescription for Keflex as it may be a staph infection. If your rash gets acutely worse, you get severe pain, vision changes, numbness in your face, please immediately return to the emergency department.
[2018-07-20 09:25] VITALS: BP 149/82
== END 2018-07-20 09:23 | disposition home or self-care (01) ==
LOC: ER 06:40
DX: M54.42 Lumbago with sciatica, left side (principal); R21 Rash and other nonspecific skin eruption; F17.200 Nicotine dependence, unspecified, uncomplicated; I10 Essential (primary) hypertension; E11.9 Type 2 diabetes mellitus without complications
CPT/HCPCS: 99283; 96372; J1885

== ENCOUNTER 2019-01-15 13:32 | Emergency (ER) | payer SELFPAY ==
[2019-01-15] MEDS ORDERED: HYDROCODONE/ACETAMINOPHEN 5-325 MG TABLET PO ONE (14:42)
[2019-01-15] MEDS ORDERED: ACETAMINOPHEN 325 MG TABLET PO ONE (14:43)
--- NOTE | 2019-01-15 14:45 | ER Document Report ---
ED Medical Screen (RME) - General Chief Complaint: Abscess Stated Complaint: ABSCESS/RIGHT GROIN Time Seen by Provider: 01/15/19 14:39 Notes: 38-year-old female with hidradenitis suppurativa presents to the emergency department with an abscess in her right groin in the crease just lateral to the mons pubis. Patient states that it started yesterday and got acutely worse today. No fevers or chills, no shortness of breath or chest pain, no discharge from the site area patient is not on any type of biologic or any long-standing medication for her HS. Exam: Well-appearing in no acute distress, exam somewhat limited in the triage area but there was an area of erythema in the groin and her crease lateral to her mons pubis and the right side, I could not palpate an area of induration or fluctuance but this could be positional. I have greeted and performed a rapid initial assessment of this patient. A comprehensive ED assessment and evaluation of the patient, analysis of test results and completion of medical decision making process will be conducted by an additional ED providers. TRAVEL OUTSIDE OF THE [place] IN LAST 30 DAYS: No - Related Data Allergies/Adverse Reactions: No Known Allergies Allergy (Verified 01/15/19 14:40) Past Medical History - Social History Chew tobacco use (# tins/day): No Frequency of alcohol use: None Drug Abuse: None - Past Medical History Cardiac Medical History: Reports: Hx Hypercholesterolemia, Hx Hypertension - borderline no meds Denies: Hx Coronary Artery Disease, Hx Heart Attack Pulmonary Medical History: Denies: Hx Asthma, Hx Bronchitis, Hx COPD, Hx Pneumonia Neurological Medical History: Denies: Hx Cerebrovascular Accident, Hx Seizures Endocrine Medical History: Reports: Hx Diabetes Mellitus Type 2 Renal/ Medical History: Reports: Hx Ovarian Cysts. Denies: Hx Peritoneal Dialysis GI Medical History: Reports: Hx Gastroesophageal Reflux Disease Musculoskeltal Medical History: Reports Hx Arthritis - rt knee, Reports Hx Musculoskeletal Trauma Psychiatric Medical History: Reports: Hx Bipolar Disorder, Hx Depression Past Surgical History: Reports: Hx Section, Hx Cholecystectomy, Hx Genitourinary Surgery - D/C - Immunizations Immunizations up to date: Yes Hx Diphtheria, Pertussis, Tetanus Vaccination: Yes Physical Exam - Vital signs Vitals: Temp Pulse Resp BP Pulse Ox 98.4 F 87 20 157/111 H 100 01/15/19 13:47 01/15/19 13:47 01/15/19 13:47 01/15/19 13:47 01/15/19 13:47 Course - Vital Signs Vital signs: Temp Pulse Resp BP Pulse Ox 98.4 F 87 20 157/111 H 100 01/15/19 13:47 01/15/19 13:47 01/15/19 13:47 01/15/19 13:47 01/15/19 13:47
[2019-01-15] MEDS ORDERED: DOXYCYCLINE HYCLATE 100 MG TABLET PO ONE (18:26)
--- NOTE | 2019-01-15 18:30 | ER Document Report ---
ED General - General Chief Complaint: Abscess Stated Complaint: ABSCESS/RIGHT GROIN Time Seen by Provider: 01/15/19 14:39 Primary Care Provider: [facility] [Provider Group] - Follow up in 1 week TRAVEL OUTSIDE OF THE [place] IN LAST 30 DAYS: No - HPI Notes: 38-year-old female to the emergency department with complaints of an abscess in her groin that began yesterday. She states that it is very tender to palpation. She denies any fevers or chills. She admits to a yeast infection underneath her pannus that has been ongoing for a long time but has not gotten worse since she noticed this abscess. She has a pertinent past medical history of active hidradenitis suppurativa. She states that typically she can manage it on her own. She states that she cannot see the abscess due to her body habitus so she wanted to get it checked. She has had several different types of treatments for her hidradenitis before to include Humira shots, long-term antibiotics, surgery to remove her glands in her axilla. She denies any other complaints. - Related Data Allergies/Adverse Reactions: No Known Allergies Allergy (Verified 01/15/19 14:40) Past Medical History - General Information source: Patient - Social History Smoking Status: Current Every Day Smoker Chew tobacco use (# tins/day): No Frequency of alcohol use: None Drug Abuse: None Family History: Arthritis, CAD, CVA, DM, Hyperlipidemia, Hypertension Patient has suicidal ideation: No Patient has homicidal ideation: No - Past Medical History Cardiac Medical History: Reports: Hx Hypercholesterolemia, Hx Hypertension - borderline no meds Denies: Hx Coronary Artery Disease, Hx Heart Attack Pulmonary Medical History: Denies: Hx Asthma, Hx Bronchitis, Hx COPD, Hx Pneumonia Neurological Medical History: Denies: Hx Cerebrovascular Accident, Hx Seizures Endocrine Medical History: Reports: Hx Diabetes Mellitus Type 2 Renal/ Medical History: Reports: Hx Ovarian Cysts. Denies: Hx Peritoneal Dialysis GI Medical History: Reports: Hx Gastroesophageal Reflux Disease Musculoskeletal Medical History: Reports Hx Arthritis - rt knee, Reports Hx Musculoskeletal Trauma Psychiatric Medical History: Reports: Hx Bipolar Disorder, Hx Depression Past Surgical History: Reports: Hx Section, Hx Cholecystectomy, Hx Genitourinary Surgery - Immunizations Immunizations up to date: Yes Hx Diphtheria, Pertussis, Tetanus Vaccination: Yes Review of Systems - Review of Systems Constitutional: denies: Chills, Fever EENT: No symptoms reported Cardiovascular: denies: Chest pain, Palpitations, Heart racing, Orthopnea, Dyspnea, Syncope Respiratory: denies: Cough, Short of breath Gastrointestinal: denies: Abdominal pain, Diarrhea, Nausea, Vomiting Genitourinary: No symptoms reported Musculoskeletal: No symptoms reported Skin: See HPI, Rash Neurological/Psychological: No symptoms reported -: Yes All other systems reviewed and negative Physical Exam - Vital signs Vitals: Temp Pulse Resp BP Pulse Ox 98.4 F 87 20 157/111 H 100 01/15/19 13:47 01/15/19 13:47 01/15/19 13:47 01/15/19 13:47 01/15/19 13:47 Interpretation: Normal - General General appearance: Appears well, Alert - HEENT Head: Normocephalic - I think he is a patient I cannot remember where he was on his like breathing at 80% on 15 L on a more frequent she is somewhere, Atraumatic Eyes: Normal Pupils: PERRL Ears: Normal External canal: Normal Tympanic membrane: Normal Sinus: Normal Nasal: Normal Mouth/Lips: Normal Mucous membranes: Normal Pharynx: Normal Neck: Normal - Respiratory Respiratory status: No respiratory distress Chest status: Nontender Breath sounds: Normal Chest palpation: Normal - Cardiovascular Rhythm: Regular Heart sounds: Normal auscultation Murmur: No - Abdominal Inspection: Morbidly Obese Distension: No distension Bowel sounds: Normal Tenderness: Nontender Organomegaly: No organomegaly - Back Back: Normal, Nontender - Neurological Neuro grossly intact: Yes Cognition: Normal Orientation: AAOx4 [place] Coma Scale Eye Opening: Spontaneous [place] Coma Scale Verbal: Oriented [place] Coma Scale Motor: Obeys Commands [place] Coma Scale Total: 15 Speech: Normal Motor strength normal: LUE, RUE, LLE, RLE Sensory: Normal - Psychological Associated symptoms: Normal affect, Normal mood - Skin Skin Temperature: Warm Skin Moisture: Dry Skin Color: Normal Skin irregularity: other - To the right groin region where the mons meets the groin there is an involving abscess. It is indurated mildly tender to palpation. There is no fluctuance. There is no pointing. There is no active drainage. There is no streaking cellulitis or evidence of lymphangitis. Above this area in the pannus between the mons pubis and her abdomen there is evidence for a yeast infection. There is erythema with satellite lesions. Course - Re-evaluation Re-evalutation: 01/15/19 19:31 Impression: Groin abscess from hidradenitis. Pannus yeast infection. We will go ahead and start on nystatin powder to try to help with the moisture that gathers in the pannus because of her obesity. The evolving abscess in her groin is not fluctuant and do not think that it has a pocket for drainage today. We will go ahead and start patient on doxycycline and have asked for her to perform sitz bath. Urged for 2-day wound check to evaluate for possible I&D at that time. Will send home also with Diflucan. We will also send home a small amount pain medicines. Patient agrees with the plan. - Vital Signs Vital signs: Temp Pulse Resp BP Pulse Ox 97.5 F 79 18 160/90 H 97 01/15/19 18:30 01/15/19 18:30 01/15/19 18:30 01/15/19 18:30 01/15/19 18:30 Discharge - Discharge Clinical Impression: Hidradenitis suppurativa, Tinea corporis Condition: Stable Disposition: HOME, SELF-CARE Instructions: Abscess ([facility]) Additional Instructions: Take medicines as prescribed. Sitz baths. Wound check in 2 days. Prescriptions: Fluconazole [Diflucan] 150 mg PO ASDIR PRN #2 tablet PRN Reason: Doxycycline Hyclate 100 mg PO BID #14 capsule Nystatin [Mycostatin Topical Powder 15 gm] 1 applic TP BID #1 bottle Hydrocodone/Acetaminophen [[place] 5-325 mg Tablet] 1 tab PO Q6H #9 tablet Referrals: [facility] [Provider Group] - Follow up in 1 week
[2019-01-15 18:55] VITALS: BP 160/90
== END 2019-01-15 18:35 | disposition home or self-care (01) ==
LOC: ER 13:32
DX: L73.2 Hidradenitis suppurativa (principal); B35.4 Tinea corporis; F17.200 Nicotine dependence, unspecified, uncomplicated; E78.00 Pure hypercholesterolemia, unspecified; E11.9 Type 2 diabetes mellitus without complications; Z90.49 Acquired absence of other specified parts of digestive tract
CPT/HCPCS: 99282

== ENCOUNTER 2019-03-25 16:26 | Inpatient (IN) | payer SELFPAY ==
[2019-03-25] MEDS ORDERED: NORMAL SALINE 500 ML IV ONE (18:07)
[2019-03-25] MEDS ORDERED: LIDOCAINE 2% INJ (20 MG/ML) 20 ML MDV INJ ONE (18:13)
[2019-03-25] MEDS ORDERED: MORPHINE SULFATE 10 MG/ML INJ IV ONE (18:17)
[2019-03-25 18:55] LABS: ABSOLUTE EOSINOPHILS # (AUTO) 0.1 10^3/uL (0.0-0.6); ABSOLUTE LYMPHOCYTES (AUTO) 1.7 10^3/uL (0.5-4.7); ABSOLUTE MONOCYTES (AUTO) 0.9 10^3/uL (0.1-1.4); ABSOLUTE NEUT (AUTO) 14.2 10^3/uL (1.7-8.2); BASOPHILS % (AUTO) 0.2 % (0-2); EOSINOPHILS % (AUTO) 0.4 % (0-6); HEMATOCRIT 45.9 % (36.0-47.0); LYMPHOCYTES % (AUTO) 10.3 % (13-45); MEAN CORPUSCULAR HEMOGLOBIN 30.4 pg (27.0-33.4); MEAN CORPUSCULAR HGB CONC 34.9 g/dL (32.0-36.0); MEAN CORPUSCULAR VOLUME 87 fl (80-97); MONOCYTES % (AUTO) 5.1 % (3-13); PLATELET COUNT 220 10^3/uL (150-450); RED BLOOD COUNT 5.27 10^6/uL (3.72-5.28); TOTAL CELLS COUNTED % (AUTO) 100 %; WHITE BLOOD COUNT 16.9 10^3/uL (4.0-10.5)
[2019-03-25 19:13] LABS: ALBUMIN 4.2 g/dL (3.5-5.0); ALKALINE PHOSPHATASE 66 U/L (38-126); ANION GAP 8 (5-19); ASPARTATE AMINO TRANSFERASE 25 U/L (14-36); BILIRUBIN,DIRECT 0.2 mg/dL (0.0-0.4); BLOOD UREA NITROGEN 8 mg/dL (7-20); CALCIUM 9.7 mg/dL (8.4-10.2); CARBON DIOXIDE 28 mmol/L (22-30); CHLORIDE 100 mmol/L (98-107); GLUCOSE 200 mg/dL (75-110); POTASSIUM 4.2 mmol/L (3.6-5.0); TOTAL PROTEIN 7.5 g/dL (6.3-8.2)
[2019-03-25] MEDS ORDERED: PIPERACILLIN/TAZOBACTAM 3.375 GM VIAL IV ONE (19:54)
[2019-03-25] MEDS: VANCOMYCIN HCL INJ 1000 MG VIAL IV ONE ×2 (20:42→23:11)
--- NOTE | 2019-03-25 21:43 | RADIOLOGY REPORT (SQ) ---
EXAM DESCRIPTION: RadLex: CT ABDOMEN PELVIS WITH IV CONTRAST CLINICAL HISTORY: 38 years Female; Soft tissue infection TECHNIQUE: CT of the abdomen and pelvis using intravenous contrast. All CT scans at this facility use dose modulation, iterative reconstruction, and/or weight based dosing when appropriate to reduce radiation dose to as low as reasonably achievable. COMPARISON: None. FINDINGS: Abdomen: Small hiatal hernia is noted. Liver:No focal lesions. No intrahepatic ductal distention. Gallbladder: Surgically absent Pancreas:Within normal limits Spleen:Within normal limits Right kidney:No hydronephrosis. No focal lesion. Left kidney: 3 mm lower pole calculus. No hydronephrosis. No ureteral calculi. Adrenal glands:Within normal limits Vascular structures:Within normal limits Pelvis: Small bowel:No significant distention. Appendix:Within normal limits Colon:No distention or acute pericolonic edema. No free intraperitoneal fluid or air. Bones: No acute bone findings. Bladder: Unremarkable. Uterus is unremarkable. Left ovary: 1.8 cm cyst, likely dominant follicle (no follow-up indicated). Normal right ovary. A left inguinal lymph node is slightly enlarged, 1.7 cm. No adjacent edema. In the medial left thigh there is a partially visualized area of edema in the subcutaneous tissues, with a partially visualized 0.5 cm area containing some hyperdense material. The subcutaneous area containing packing material measures 4.7 x 2.2 cm. There is no associated fluid collection. IMPRESSION: 1. Edema in the medial left thigh, likely cellulitis. There is a packed subcutaneous wound, but no abscess on these images. Note that the edema extends more distally than this exam. 2. Slightly enlarged left inguinal lymph node, likely reactive. 3. Small left renal calculus without hydronephrosis 4. Small hiatal hernia 5. Previous cholecystectomy
--- NOTE | 2019-03-25 22:43 | ER Document Report ---
ED General - General Chief Complaint: Abscess Stated Complaint: POSSIBLE ASBCESS ON GROIN Time Seen by Provider: 03/25/19 17:01 Mode of Arrival: Ambulatory Information source: Patient Notes: 39-year-old woman presents to the emergency department with an abscess involving the proximal medial thigh, left side. She states that the area has become very painful and swollen with a abscess that she has noted. Had a history of abscess in the past, she notes fever, pain and she is diabetic. She apparently has had problems in this area for approximately 1 week. TRAVEL OUTSIDE OF THE [place] IN LAST 30 DAYS: No - Related Data Allergies/Adverse Reactions: No Known Allergies Allergy (Verified 01/15/19 14:40) Past Medical History - Social History Smoking Status: Current Every Day Smoker Chew tobacco use (# tins/day): No Frequency of alcohol use: None Drug Abuse: None Family History: Arthritis, CAD, CVA, DM, Hyperlipidemia, Hypertension Patient has suicidal ideation: No Patient has homicidal ideation: No - Past Medical History Cardiac Medical History: Reports: Hx Hypercholesterolemia, Hx Hypertension - borderline no meds Denies: Hx Coronary Artery Disease, Hx Heart Attack Pulmonary Medical History: Denies: Hx Asthma, Hx Bronchitis, Hx COPD, Hx Pneumonia Neurological Medical History: Denies: Hx Cerebrovascular Accident, Hx Seizures Endocrine Medical History: Reports: Hx Diabetes Mellitus Type 2 Renal/ Medical History: Reports: Hx Ovarian Cysts. Denies: Hx Peritoneal Dialysis GI Medical History: Reports: Hx Gastroesophageal Reflux Disease Musculoskeletal Medical History: Reports Hx Arthritis - rt knee, Reports Hx Musculoskeletal Trauma Psychiatric Medical History: Reports: Hx Bipolar Disorder, Hx Depression Past Surgical History: Reports: Hx Section, Hx Cholecystectomy, Hx Genitourinary Surgery - Immunizations Immunizations up to date: Yes Hx Diphtheria, Pertussis, Tetanus Vaccination: Yes Review of Systems - Review of Systems Notes: Constitutional: + Fever. HENT: Negative for sore throat. Eyes: Negative for visual changes. Cardiovascular: Negative for chest pain. Respiratory: Negative for shortness of breath. Gastrointestinal: Negative for abdominal pain, vomiting or diarrhea. Genitourinary: Negative for dysuria. Musculoskeletal: Negative for back pain. Skin: + Inguinal abscess, Neurological: Negative for headaches, weakness or numbness. 10 point ROS negative except as marked above and in HPI. Physical Exam - Vital signs Vitals: Temp Resp Pulse Ox 100.2 F 20 92 03/25/19 16:27 03/25/19 16:27 03/25/19 16:27 - Notes Notes: PHYSICAL EXAMINATION: Physical Exam: General: Obese female in mild acute distress HEENT: NC/AT, pupils equal round and reactive to light, MM moist,nares clear, Neck: supple, no adenopathy, no masses. Lungs: clear, no wheezing, no rales no rhonchi CVS: Regular rate and rhythm no murmur gallop or rub Abdomen: Soft active nontender, no masses, no hepatosplenomegaly Ext: These abscess approximately 3 cm circular lesion with induration and firmness and erythema extending onto the soft tissue of the thigh and onto the perineum. Neuro: Alert and responsive, moving all 4 extremities on command, cranial nerves intact. Skin: Area of abscess and cellulitis as described above. PSYCH: Normal mood, normal affect. Course - Re-evaluation Re-evalutation: 03/25/19 22:42 CT scan was performed which reveals edema in the medial left thigh, likely cellulitis there is also a pack subcutaneous wound, no abscesses noted on the imaging there is a 4.7 x 2.2 cm area containing packing material. There is no suggestion of necrotizing fasciitis based on this CT scan. Given the patient's fever and diabetic status, I have asked explained to her that IV antibiotics and hospitalization may be the better approach. The hospitalist, will be notified. 03/25/19 23:44 Dr Hunt, hospitalist is contacted, will admit the patient to the medical floor for further evaluation and treatment. - Vital Signs Vital signs: Temp Pulse Resp BP Pulse Ox 99.5 F 98 16 130/76 H 97 03/25/19 21:09 03/25/19 21:09 03/25/19 21:09 03/25/19 21:09 03/25/19 21:09 - Laboratory Result Diagrams: 03/25/19 18:40 03/25/19 18:40 Laboratory results interpreted by me: 03/25/19 03/25/19 18:40 18:40 WBC 16.9 H Hgb 16.0 H Lymph % (Auto) 10.3 L Absolute Neuts (auto) 14.2 H Seg Neutrophils % 84.0 H Sodium 135.6 L Glucose 200 H Procedures - Incision and Drainage Left Thigh Type: Simple Anesthetic type: 2% Lidocaine mL's of anesthetic: 5 Blade size: 11 I&D procedure: Betadine prep applied, Chlorprep applied Incision Method: Incision made by scalpel Notes: 03/25/19 22:44 A incision was made and copious amounts of a serosanguineous foul-smelling fluid approximately 10 to 12 cc drained from the wound. Wound was cultured and quarter inch packing material used to pack the wound. Discharge - Discharge Clinical Impression: Soft tissue abscess of inguinal region, Cellulitis of left groin Diabetes mellitus Qualifiers: Diabetes mellitus halfway insulin use: unspecified halfway insulin use status Proliferative retinopathy type: unspecified Laterality: unspecified laterality Condition: Good Disposition: ADMITTED INPATIENT Admitting Provider: Gilbert (Hospitalist) Unit Admitted: Medical Floor
[2019-03-25] MEDS ORDERED: VANCOMYCIN HCL INJ 1000 MG VIAL ONE (22:55)
[2019-03-25] MEDS ORDERED: DEXTROSE 50%-WATER 25 GM/50 ML DISP.SYRIN IV PRN ×2 (23:40)
[2019-03-25] MEDS ORDERED: DEXTROSE 40% GEL 15 GM TUBE PO PRN ×2 (23:40)
[2019-03-25] MEDS ORDERED: ACETAMINOPHEN 325 MG TABLET PO PRN (23:40)
[2019-03-25] MEDS ORDERED: GLUCAGON,HUMAN RECOMB 1 MG INJ IM PRN (23:40)
[2019-03-25] MEDS ORDERED: IPRATROPIUM/ALBUTEROL 0.5-2.5 MG/3 ML AMPUL NEB PRN (23:40)
[2019-03-25] MEDS ORDERED: NORMAL SALINE 1000 ML 1,000 ML IV PRN (23:40)
[2019-03-25] MEDS ORDERED: KETOROLAC TROMETHAMINE INJ/PF 30 MG/1 ML SDV IV PRN (23:44)
[2019-03-26] MEDS ORDERED: INSULIN GLARGINE,HUM.REC.ANLOG 1,000 UNIT/10 ML VIAL SUBCUT ONE (00:15)
[2019-03-26] MEDS ORDERED: VANCOMYCIN HCL INJ 1000 MG VIAL IV PRN (01:59)
[2019-03-26] MEDS ORDERED: VANCOMYCIN HCL 1,500 MG in DEXTROSE 5%-WATER 250 ML IV ONE (02:00)
[2019-03-26] MEDS ORDERED: PIPERACILLIN/TAZOBACTAM 3.375 GM VIAL IV PRN (02:00)
[2019-03-26] MEDS ORDERED: VANCOMYCIN HCL 0 MG in DEXTROSE 5%-WATER 250 ML IV NR (02:00)
[2019-03-26] MEDS ORDERED: PIPERACILLIN SODIUM/TAZOBACTAM 3.375 GM in NORMAL SALINE 100 ML IV SCH ×2 (03:00→06:00)
[2019-03-26] MEDS ORDERED: PIPERACILLIN/TAZOBACTAM 3.375 GM VIAL IV ONE (03:07)
[2019-03-26] MEDS ORDERED: VANCOMYCIN HCL INJ 500 MG VIAL ONE (03:08)
[2019-03-26] MEDS ORDERED: VANCOMYCIN HCL INJ 1000 MG VIAL ONE (03:08)
[2019-03-26] MEDS: NORMAL SALINE 1000 ML 1,000 ML IV PRN ×2 (03:31→08:40)
[2019-03-26] MEDS ORDERED: INFLUENZA QUAD (6MOS+) 2019-20 VAC 0.5 ML SYR IM ONE (04:06)
[2019-03-26 05:33] LABS: HEMATOCRIT 42.5 % (36.0-47.0); HEMOGLOBIN 14.7 g/dL (12.0-15.5); MEAN CORPUSCULAR HEMOGLOBIN 30.7 pg (27.0-33.4); MEAN CORPUSCULAR HGB CONC 34.7 g/dL (32.0-36.0); MEAN CORPUSCULAR VOLUME 89 fl (80-97); PLATELET COUNT 195 10^3/uL (150-450)
[2019-03-26] MEDS: HEPARIN SOD (PORCINE) 5,000 UNIT/ML 1 ML VIAL SUBCUT SCH (05:41)
--- NOTE | 2019-03-26 05:46 | PDOC H&P ---
History of Present Illness Admission Date/PCP: 03/25/19 23:48 Patient complains of: Groin abscess History of Present Illness: EVERARDO STALLWORTH is a 38 year old female with a past medical history of GERD, anxiety, morbid obesity, hidradenitis, recurrent skin abscess and poorly controlled diabetes. She presents with 7 to 10 days of swelling and pain to the medial left thigh with associated fever of 102.1, leukocytosis and fluctuant drainage. In the emergency department she has an I&D followed by CT which is negative for fluid collection and deeper structures. She receives empiric antibiotics and referred to the hospitalist for admission. Patient admits multiple previous episodes of skin abscesses but denies MRSA. She admits noncompliance with diabetic regiment and diet indiscretion. Past Medical History Cardiac Medical History: Reports: Hyperlipidema, Hypertension - borderline no meds Denies: Coronary Artery Disease, Myocardial Infarction Pulmonary Medical History: Denies: Asthma, Bronchitis, Chronic Obstructive Pulmonary Disease (COPD), Pneumonia Neurological Medical History: Denies: Seizures Endocrine Medical History: Reports: Diabetes Mellitus Type 2, Obesity GI Medical History: Reports: Gastroesophageal Reflux Disease Musculoskeltal Medical History: Reports: Arthritis - rt knee Psychiatric Medical History: Reports: Bipolar Disorder, Depression Hematology: Denies: Anemia Past Surgical History Past Surgical History: Reports: Section, Cholecystectomy Social History Information Source: Patient Smoking Status: Current Every Day Smoker Electronic Cigarette use?: No Frequency of Alcohol Use: None Hx Recreational Drug Use: No Drugs: None Hx Prescription Drug Abuse: No - Advance Directive Resuscitation Status: Full Code Family History Family History: Arthritis, CAD, CVA, DM, Hyperlipidemia, Hypertension Parental Family History Reviewed: Yes Children Family History Reviewed: Yes Sibling(s) Family History Reviewed.: Yes Medication/Allergy Home Medications: Doxycycline Hyclate 100 mg PO BID #14 capsule 01/15/19 Fluconazole [Diflucan] 150 mg PO ASDIR PRN #2 tablet 01/15/19 Hydrocodone/Acetaminophen [[place] 5-325 mg Tablet] 1 tab PO Q6H #9 tablet 01/15/19 Nystatin [Mycostatin Topical Powder 15 gm] 1 applic TP BID #1 bottle 01/15/19 Allergies/Adverse Reactions: No Known Allergies Allergy (Verified 01/15/19 14:40) Review of Systems Constitutional: ABSENT: chills, fever(s), headache(s), weight gain, weight loss Eyes: ABSENT: visual disturbances Ears: ABSENT: hearing changes Cardiovascular: ABSENT: chest pain, dyspnea on exertion, edema, orthropnea, palpitations Respiratory: ABSENT: cough, hemoptysis Gastrointestinal: ABSENT: abdominal pain, constipation, diarrhea, hematemesis, hematochezia, nausea, vomiting Genitourinary: ABSENT: dysuria, hematuria Musculoskeletal: ABSENT: joint swelling Integumentary: ABSENT: rash, wounds Neurological: ABSENT: abnormal gait, abnormal speech, confusion, dizziness, focal weakness, syncope Psychiatric: ABSENT: anxiety, depression, homidical ideation, suicidal ideation Endocrine: ABSENT: cold intolerance, heat intolerance, polydipsia, polyuria Hematologic/Lymphatic: ABSENT: easy bleeding, easy bruising Physical Exam Vital Signs: Temp Pulse Resp BP Pulse Ox 99.7 F 91 19 125/72 95 03/26/19 01:39 03/26/19 01:39 03/26/19 01:39 03/26/19 01:39 03/26/19 01:39 Intake & Output 03/24/19 03/25/19 03/26/19 11:59 11:59 11:59 Intake Total 500 Balance 500 Weight 128.6 kg General appearance: PRESENT: cooperative, mild distress, morbidly obese, well- developed, well-nourished Head exam: PRESENT: atraumatic, normocephalic Eye exam: PRESENT: conjunctiva pink, EOMI, PERRLA. ABSENT: scleral icterus Ear exam: PRESENT: normal external ear exam Mouth exam: PRESENT: moist, tongue midline Neck exam: ABSENT: carotid bruit, JVD, lymphadenopathy, thyromegaly Respiratory exam: PRESENT: clear to auscultation gema. ABSENT: rales, rhonchi, wheezes Cardiovascular exam: PRESENT: RRR. ABSENT: diastolic murmur, rubs, systolic murmur Pulses: PRESENT: normal dorsalis pedis pul Vascular exam: PRESENT: normal capillary refill GI/Abdominal exam: PRESENT: normal bowel sounds, soft. ABSENT: distended, guarding, mass, organolmegaly, rebound, tenderness Rectal exam: PRESENT: deferred Gentrourinary exam: PRESENT: other - Left-sided inguinal erythema pain and packing with sanguinous discharge Extremities exam: PRESENT: +1 edema Neurological exam: PRESENT: alert, awake, oriented to person, oriented to place, oriented to time, oriented to situation, CN II-XII grossly intact. ABSENT: motor sensory deficit Psychiatric exam: PRESENT: anxious, depressed. ABSENT: homicidal ideation, suicidal ideation Skin exam: PRESENT: other - Left-sided inguinal erythema pain and packing with sanguinous discharge Results Laboratory Results: 03/25/19 03/25/19 18:40 18:40 WBC 16.9 H RBC 5.27 Hgb 16.0 H Hct 45.9 MCV 87 MCH 30.4 MCHC 34.9 RDW 14.0 Plt Count 220 Seg Neutrophils % 84.0 H Sodium 135.6 L Potassium 4.2 Chloride 100 Carbon Dioxide 28 Anion Gap 8 BUN 8 Creatinine 0.60 Est GFR ( Amer) > 60 Glucose 200 H Calcium 9.7 Total Bilirubin 1.0 AST 25 Alkaline Phosphatase 66 Total Protein 7.5 Albumin 4.2 Impressions: Abdomen/Pelvis CT 03/25/19 19:56 IMPRESSION: 1. Edema in the medial left thigh, likely cellulitis. There is a packed subcutaneous wound, but no abscess on these images. Note that the edema extends more distally than this exam. 2. Slightly enlarged left inguinal lymph node, likely reactive. 3. Small left renal calculus without hydronephrosis 4. Small hiatal hernia 5. Previous cholecystectomy Assessment and Plan - Diagnosis (1) Cellulitis of left groin Is this a current diagnosis for this admission?: Yes Plan: Empiric vancomycin and Zosyn, follow-up CBC, blood culture and surgical consult (2) Diabetes mellitus Qualifiers: Diabetes mellitus intermediate insulin use: unspecified intermediate insulin use status Proliferative retinopathy type: unspecified Laterality: unspecified laterality Is this a current diagnosis for this admission?: Yes Plan: Lantus 5 units subcu every 12, Humalog sliding scale and follow-up A1c, (3) Soft tissue abscess of inguinal region Is this a current diagnosis for this admission?: Yes Plan: Please see #1 - Time Time Spent with patient: 25-34 minutes - Inpatient Certification Medical Necessity: Need Close Monitoring Due to Risk of Patient Decompensation
[2019-03-26 05:48] LABS: ANION GAP 11 (5-19); BLOOD UREA NITROGEN 14 mg/dL (7-20); CALCIUM 9.3 mg/dL (8.4-10.2); CARBON DIOXIDE 26 mmol/L (22-30); CHLORIDE 101 mmol/L (98-107); GLUCOSE 184 mg/dL (75-110); POTASSIUM 3.6 mmol/L (3.6-5.0)
[2019-03-26 06:00] LABS: ABSOLUTE LYMPHOCYTES# (MANUAL) 1.3 10^3/uL (0.5-4.7); ABSOLUTE MONOCYTES # (MANUAL) 1.4 10^3/uL (0.1-1.4); BASOPHILS % (MANUAL) 0 % (0-2); EOSINOPHILS % (MANUAL) 0 % (0-6); LYMPHOCYTES % (MANUAL) 8 % (13-45); MONOCYTES % (MANUAL) 9 % (3-13); SEGMENTED NEUTROPHILS % (MAN) 83 % (42-78); TOTAL CELLS COUNTED 100
[2019-03-26 06:04] LABS: ANISOCYTOSIS SLIGHT; PLATELET COMMENT ADEQUATE; POIKILOCYTOSIS SLIGHT; TEAR DROP CELLS SLIGHT; TOXIC GRANULATION SLIGHT
--- NOTE | 2019-03-26 07:31 | PDOC CONSULTATION ---
Consultation Consult Date: 03/26/19 Provider Consulted: SURGICAL SURGICALIST MD Consult reason:: Left inner thigh abscess History of Present Illness Admission Date/PCP: 03/25/19 23:48 Patient complains of: Left inner thigh pain and swelling with purulent drainage. History of Present Illness: EVERARDO STALLWORTH is a 38 year old female seen in consultation at the request of the hospitalist service. The patient reports a several day history of pain, swelling, and redness of the upper inner thigh. She reports subjective fevers and chills at home. Her main complaint is pain. Her pain is 9 out of 10. It is sharp and stabbing. She finds it difficult to walk. The patient does have diabetes. She denies chest pain, shortness of breath, nausea, vomiting, hematemesis, melena, hematochezia, orthostasis, blurry vision, dizziness. Nothing makes her pain better. Movement and palpation make it worse. Past Medical History Cardiac Medical History: Reports: Hyperlipidema, Hypertension - borderline no meds Denies: Coronary Artery Disease, Myocardial Infarction Pulmonary Medical History: Denies: Asthma, Bronchitis, Chronic Obstructive Pulmonary Disease (COPD), Pneumonia Neurological Medical History: Denies: Seizures Endocrine Medical History: Reports: Diabetes Mellitus Type 2, Obesity GI Medical History: Reports: Gastroesophageal Reflux Disease Musculoskeltal Medical History: Reports: Arthritis - rt knee Psychiatric Medical History: Reports: Bipolar Disorder, Depression Hematology: Denies: Anemia Past Surgical History Past Surgical History: Reports: Section, Cholecystectomy Social History Smoking Status: Current Every Day Smoker Electronic Cigarette use?: No Frequency of Alcohol Use: None Hx Recreational Drug Use: No Drugs: None Hx Prescription Drug Abuse: No - Advance Directive Resuscitation Status: Full Code Family History Family History: Arthritis, CAD, CVA, DM, Hyperlipidemia, Hypertension Parental Family History Reviewed: Yes Children Family History Reviewed: Yes Sibling(s) Family History Reviewed.: Yes Medication/Allergy Allergies/Adverse Reactions: No Known Allergies Allergy (Verified 01/15/19 14:40) Review of Systems Constitutional: PRESENT: chills, fatigue. ABSENT: weakness Eyes: ABSENT: visual disturbances Ears: ABSENT: hearing changes Nose, Mouth, and Throat: ABSENT: sore throat Cardiovascular: ABSENT: chest pain Respiratory: ABSENT: cough Gastrointestinal: ABSENT: abdominal pain, hematochezia, melena, nausea, vomiting Genitourinary: ABSENT: dysuria Musculoskeletal: ABSENT: back pain Integumentary: PRESENT: other - Swelling, pain, erythema of the upper inner thigh. Neurological: ABSENT: confusion, convulsions, dizziness Psychiatric: ABSENT: anxiety, depression Endocrine: ABSENT: cold intolerance, heat intolerance Hematologic/Lymphatic: ABSENT: easy bleeding, easy bruising Physical Exam Vital Signs: Temp Pulse Resp BP Pulse Ox 99.7 F 91 19 125/72 95 03/26/19 01:39 03/26/19 01:39 03/26/19 01:39 03/26/19 01:39 03/26/19 01:39 Intake & Output 03/24/19 03/25/19 03/26/19 06:59 06:59 06:59 Intake Total 750 Balance 750 Weight 128.6 kg General appearance: PRESENT: morbidly obese Head exam: PRESENT: atraumatic, normocephalic Eye exam: PRESENT: EOMI, PERRLA. ABSENT: scleral icterus Mouth exam: PRESENT: moist, neck supple Neck exam: ABSENT: tenderness, thyromegaly, tracheal deviation Respiratory exam: PRESENT: unlabored. ABSENT: chest wall tenderness, tachypnea Cardiovascular exam: PRESENT: RRR Pulses: PRESENT: normal radial pulses Vascular exam: PRESENT: normal capillary refill GI/Abdominal exam: PRESENT: soft. ABSENT: distended, guarding, tenderness Rectal exam: PRESENT: deferred Extremities exam: ABSENT: clubbing Musculoskeletal exam: ABSENT: deformity Neurological exam: PRESENT: alert, awake, oriented to person, oriented to place, oriented to time, oriented to situation, CN II-XII grossly intact Psychiatric exam: ABSENT: agitated, anxious, depressed Focused psych exam: ABSENT: delusional Skin exam: PRESENT: other - Large amount of erythema in the left upper, inner thigh. There is purulent drainage from a small incision. Iodoform gauze packing is present. There is significant tenderness to palpation, and induration in the area. Results Laboratory Results: 03/26/19 04:57 03/26/19 04:57 03/25/19 03/25/19 03/26/19 18:40 18:40 04:57 WBC 16.9 H 16.0 H RBC 5.27 4.80 Hgb 16.0 H 14.7 Hct 45.9 42.5 MCV 87 89 MCH 30.4 30.7 MCHC 34.9 34.7 RDW 14.0 14.0 Plt Count 220 195 Seg Neutrophils % 84.0 H Not Reportable Sodium 135.6 L Potassium 4.2 Chloride 100 Carbon Dioxide 28 Anion Gap 8 BUN 8 Creatinine 0.60 Est GFR ( Amer) > 60 Glucose 200 H Calcium 9.7 Total Bilirubin 1.0 AST 25 Alkaline Phosphatase 66 Total Protein 7.5 Albumin 4.2 03/26/19 04:57 WBC RBC Hgb Hct MCV MCH MCHC RDW Plt Count Seg Neutrophils % Sodium 137.9 Potassium 3.6 Chloride 101 Carbon Dioxide 26 Anion Gap 11 BUN 14 Creatinine 0.80 Est GFR ( Amer) > 60 Glucose 184 H Calcium 9.3 Total Bilirubin AST Alkaline Phosphatase Total Protein Albumin Impressions: Abdomen/Pelvis CT 03/25/19 19:56 IMPRESSION: 1. Edema in the medial left thigh, likely cellulitis. There is a packed subcutaneous wound, but no abscess on these images. Note that the edema extends more distally than this exam. 2. Slightly enlarged left inguinal lymph node, likely reactive. 3. Small left renal calculus without hydronephrosis 4. Small hiatal hernia 5. Previous cholecystectomy Assessment & Plan - Diagnosis (1) Abscess of left thigh Is this a current diagnosis for this admission?: Yes - Plan Summary Plan Summary: This is a 38-year-old diabetic female with an abscess of the left upper inner thigh. It appears to have been inadequately drained previously. I recommended operative incision and drainage, with washout and debridement. The patient has agreed to this. Risks/benefits discussed, informed consent obtained, and all questions answered.
[2019-03-26] MEDS: INSULIN LISPRO 100 UNIT/ML 3 ML VIAL SUBCUT SCH ×3 (08:16→16:17)
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
[2019-03-26] MEDS: ACETAMINOPHEN 1,000 MG/100 ML RTUPB IV SCH ×3 (08:40→21:07)
[2019-03-26] MEDS ORDERED: KETOROLAC TROMETHAMINE INJ/PF 30 MG/1 ML SDV IV ONE (09:00)
[2019-03-26] MEDS: KETOROLAC TROMETHAMINE INJ/PF 30 MG/1 ML SDV IV SCH ×3 (09:03→21:07)
[2019-03-26] MEDS ORDERED: MIDAZOLAM 2 MG/2 ML INJ ONE (09:39)
[2019-03-26] MEDS ORDERED: FENTANYL CITRATE INJ/PF 100 MCG/2 ML AMPUL ONE (09:39)
[2019-03-26] MEDS ORDERED: PROPOFOL INJ 200 MG/20 ML VIAL IV ONE (09:39)
[2019-03-26] MEDS ORDERED: HYDROMORPHONE HCL INJ/PF 2 MG/ML AMPULE ONE (09:48)
--- NOTE | 2019-03-26 09:59 | PDOC PROGRESS REPORT ---
Subjective Progress Note for:: 03/26/19 Subjective:: EVERARDO STALLWORTH is a 38 year old female with a past medical history of GERD, anxiety, morbid obesity, history of hidradenitis, recurrent skin abscess and poorly controlled diabetes who presented with left thigh pain, swelling and tenderness. Patient was admitted for left thigh cellulitis. No acute event overnight. No fever or chills. She complains of pain on the left thigh. She has been evaluated by surgery and is scheduled for an I&D later today. Reason For Visit: THIGH CELLULITIS, DIABETES Physical Exam Vital Signs: Temp Pulse Resp BP Pulse Ox 99.3 F 92 18 133/67 H 97 03/26/19 08:56 03/26/19 08:56 03/26/19 08:56 03/26/19 08:56 03/26/19 08:56 Intake & Output 03/25/19 03/26/19 03/27/19 06:59 06:59 06:59 Intake Total 750 1000 Balance 750 1000 Weight 283 lb 8.231 oz General appearance: PRESENT: no acute distress, well-developed, well-nourished Head exam: PRESENT: atraumatic, normocephalic Eye exam: PRESENT: conjunctiva pink, EOMI, PERRLA. ABSENT: scleral icterus Ear exam: PRESENT: normal external ear exam Mouth exam: PRESENT: moist, tongue midline Neck exam: ABSENT: carotid bruit, JVD, lymphadenopathy, thyromegaly Respiratory exam: PRESENT: clear to auscultation gema. ABSENT: rales, rhonchi, wheezes Cardiovascular exam: PRESENT: RRR. ABSENT: diastolic murmur, rubs, systolic murmur Pulses: PRESENT: normal dorsalis pedis pul GI/Abdominal exam: PRESENT: normal bowel sounds, soft. ABSENT: distended, guarding, mass, organolmegaly, rebound, tenderness Rectal exam: PRESENT: deferred Extremities exam: PRESENT: other - Note of left thigh tenderness, erythema and swelling Neurological exam: PRESENT: alert, awake, oriented to person, oriented to place, oriented to time, oriented to situation, CN II-XII grossly intact. ABSENT: motor sensory deficit Results Laboratory Results: 03/26/19 04:57 03/26/19 04:57 03/25/19 03/25/19 03/26/19 18:40 18:40 04:57 WBC 16.9 H 16.0 H RBC 5.27 4.80 Hgb 16.0 H 14.7 Hct 45.9 42.5 MCV 87 89 MCH 30.4 30.7 MCHC 34.9 34.7 RDW 14.0 14.0 Plt Count 220 195 Seg Neutrophils % 84.0 H Not Reportable Sodium 135.6 L Potassium 4.2 Chloride 100 Carbon Dioxide 28 Anion Gap 8 BUN 8 Creatinine 0.60 Est GFR ( Amer) > 60 Glucose 200 H Calcium 9.7 Total Bilirubin 1.0 AST 25 Alkaline Phosphatase 66 Total Protein 7.5 Albumin 4.2 03/26/19 04:57 WBC RBC Hgb Hct MCV MCH MCHC RDW Plt Count Seg Neutrophils % Sodium 137.9 Potassium 3.6 Chloride 101 Carbon Dioxide 26 Anion Gap 11 BUN 14 Creatinine 0.80 Est GFR ( Amer) > 60 Glucose 184 H Calcium 9.3 Total Bilirubin AST Alkaline Phosphatase Total Protein Albumin Impressions: Abdomen/Pelvis CT 03/25/19 19:56 IMPRESSION: 1. Edema in the medial left thigh, likely cellulitis. There is a packed subcutaneous wound, but no abscess on these images. Note that the edema extends more distally than this exam. 2. Slightly enlarged left inguinal lymph node, likely reactive. 3. Small left renal calculus without hydronephrosis 4. Small hiatal hernia 5. Previous cholecystectomy Assessment and Plan - Diagnosis (1) Cellulitis of left thigh Is this a current diagnosis for this admission?: Yes Plan: Antibiotics revised by surgery. Switched to IV Zosyn. She is scheduled for an I&D later today by surgery. (2) Hypertension Is this a current diagnosis for this admission?: Yes Plan: Diet controlled. (3) Diabetes mellitus Qualifiers: Diabetes mellitus jail insulin use: unspecified jail insulin use status Proliferative retinopathy type: unspecified Laterality: unspecified laterality Is this a current diagnosis for this admission?: Yes Plan: Continue Lantus and Humalog. (4) Morbid obesity Is this a current diagnosis for this admission?: Yes Plan: BMI of 48.7. Counseled weight loss. Will consult dietitian as well. - Time Time Spent with patient: 25-34 minutes
[2019-03-26] MEDS: INSULIN GLARGINE,HUM.REC.ANLOG 1,000 UNIT/10 ML VIAL SUBCUT SCH ×2 (10:00→21:06)
[2019-03-26] MEDS: PIPERACILLIN SODIUM/TAZOBACTAM 3.375 GM in NORMAL SALINE 100 ML IV SCH ×3 (10:00→21:06)
[2019-03-26] MEDS: FLUCONAZOLE 100 MG TABLET PO SCH (10:00)
[2019-03-26] MEDS ORDERED: DIPHENHYDRAMINE HCL 50 MG/ML VIAL IV PRN (10:16)
[2019-03-26] MEDS ORDERED: OXYCODONE-ACETAMINOPHEN 5-325 MG TABLET PO PRN ×2 (10:16)
[2019-03-26] MEDS ORDERED: ONDANSETRON HCL INJ/PF 4 MG/2 ML SDV IV PRN (10:16)
[2019-03-26] MEDS ORDERED: MEPERIDINE HCL/PF INJ 25 MG/1 ML DISP.SYRIN IV PRN (10:16)
[2019-03-26] MEDS ORDERED: MORPHINE SULFATE 10 MG/ML INJ IV PRN (10:16)
[2019-03-26] MEDS ORDERED: FENTANYL CITRATE INJ/PF 100 MCG/2 ML AMPUL IV PRN ×3 (10:16)
[2019-03-26] MEDS: DOCUSATE SODIUM 100 MG CAPSULE PO SCH ×2 (10:37→17:29)
[2019-03-26] MEDS ORDERED: LIDOCAINE 1%/EPINEPHRINE INJ 20 ML VIAL ONE (10:49)
[2019-03-26] MEDS ORDERED: NEOMY/BACITRAC ZN/POLY OINT 15 GM ONE (10:56)
[2019-03-26] MEDS ORDERED: ALBUTEROL SULFATE HFA (90 MCG/PUFF) 200 PUFF/8.5 GM MDI IH ONE (11:06)
[2019-03-26] MEDS ORDERED: NALOXONE HCL INJ/PF 0.4 MG/1 ML SDV ONE (11:08)
[2019-03-26] MEDS ORDERED: ONDANSETRON HCL INJ/PF 4 MG/2 ML SDV ONE (11:30)
[2019-03-26] MEDS ORDERED: DEXAMETHASONE SOD PHOSPHATE INJ 4 MG/1 ML VIAL ONE (11:30)
--- NOTE | 2019-03-26 11:30 | Operative Report ---
Operative Report DATE OF SURGERY: 03/26/19 PREOPERATIVE DIAGNOSIS: Left upper inner thigh abscess POSTOPERATIVE DIAGNOSIS: Same OPERATION: Incision and drainage of left upper inner thigh abscess SURGEON: KORIN ELLIOTT [employer] SUPERVISOR: None ANESTHESIA: GA - 40 mL of 1% lidocaine with epinephrine TISSUE REMOVED OR ALTERED: Approximately 10 mL of milky christiano colored fluid drained COMPLICATIONS: None ESTIMATED BLOOD LOSS: Less than 5 mL INTRAOPERATIVE FINDINGS: Abscess cavity located upper left inner thigh PROCEDURE: The procedure was done in the operating room, Vick catheter was inserted, the patient was placed in a supine position in a frogleg position, the area of the abscess was prepped and draped in usual fashion. The proposed line of incision was outlined with a surgical marker, a skin incision was then made with a #15 blade, and a moderate amount of pus was obtained. This was sent for aerobic anaerobic culture and Gram stain. The incision was then extended further. After this, a finger was inserted inside the wound and the internal septations were disrupted so to make one single cavity. The abscess cavity extended inferiorly and posteriorly toward the perineum. Following this, the abscess cavity was irrigated with 100 mL of normal saline. Local bleeders were cauterized. Two counterincisions were made faraway from the initial incision and 1/4 inch [place] drain was threaded through both incision tied to itself with a 2-0 silk suture. The abscess cavity was packed with quarter inch packing strip soaked with triple antibiotic ointment, covered with dry 4 x 4's, ABDs, and tape were applied. The patient tolerated procedure well, was extubated, and transferred to the recovery room in satisfactory conditions.
[2019-03-26] MEDS ORDERED: VANCOMYCIN HCL 1,000 MG in DEXTROSE 5%-WATER 250 ML IV SCH (14:00)
[2019-03-26] MEDS ORDERED: SUCCINYLCHOLINE CHLORIDE INJ 200 MG/10 ML VIAL ONE (14:33)
[2019-03-26] MEDS: NICOTINE 14 MG/24 HR PATCH.TD24 TD SCH (17:25)
[2019-03-26] MEDS: MAG HYDROX/AL HYDROX/SIMETH SUSP 30 ML UDCUP PO PRN (21:08)
[2019-03-27] MEDS: KETOROLAC TROMETHAMINE INJ/PF 30 MG/1 ML SDV IV SCH ×2 (03:18→08:37)
[2019-03-27] MEDS: PIPERACILLIN SODIUM/TAZOBACTAM 3.375 GM in NORMAL SALINE 100 ML IV SCH ×4 (03:18→21:59)
[2019-03-27] MEDS: ACETAMINOPHEN 1,000 MG/100 ML RTUPB IV SCH ×4 (03:19→20:45)
[2019-03-27 06:20] LABS: VANCOMYCIN,TROUGH < 5.0 ug/mL (5.0-20.0)
[2019-03-27] MEDS: INSULIN LISPRO 100 UNIT/ML 3 ML VIAL SUBCUT SCH ×3 (07:57→16:25)
[2019-03-27] MEDS: DOCUSATE SODIUM 100 MG CAPSULE PO SCH ×2 (10:04→17:57)
[2019-03-27] MEDS: NICOTINE 14 MG/24 HR PATCH.TD24 TD SCH (10:05)
[2019-03-27] MEDS: FLUCONAZOLE 100 MG TABLET PO SCH (10:05)
[2019-03-27] MEDS: INSULIN GLARGINE,HUM.REC.ANLOG 1,000 UNIT/10 ML VIAL SUBCUT SCH ×2 (10:06→21:59)
[2019-03-27] MEDS: NEOMY/BACITRAC ZN/POLY OINT 15 GM TP SCH (10:21)
--- NOTE | 2019-03-27 10:40 | PDOC PROGRESS REPORT ---
Subjective Progress Note for:: 03/27/19 Subjective:: Patient is resting in bed. Her is at the bedside. She is complaining of muscle soreness and pain at the incision and drainage site with movement. It is much less painful when asked complete rest. Reason For Visit: THIGH CELLULITIS, DIABETES Physical Exam Vital Signs: Temp Pulse Resp BP Pulse Ox 98.4 F 79 17 141/94 H 92 03/27/19 07:28 03/27/19 07:28 03/27/19 07:28 03/27/19 07:28 03/27/19 07:28 Intake & Output 03/26/19 03/27/19 03/28/19 06:59 06:59 06:59 Intake Total 750 5462 Output Total 3108 Balance 750 2354 Weight 128.6 kg 132.8 kg General appearance: PRESENT: cooperative, mild distress, morbidly obese Head exam: PRESENT: atraumatic, normocephalic Ear exam: PRESENT: normal external ear exam. ABSENT: bleeding, drainage Respiratory exam: PRESENT: clear to auscultation gema, symmetrical, unlabored. ABSENT: rales, rhonchi, tachypnea Cardiovascular exam: PRESENT: RRR, +S1, +S2 GI/Abdominal exam: PRESENT: normal bowel sounds, soft, other - Protuberant abdo men. ABSENT: tenderness Rectal exam: PRESENT: deferred Extremities exam: PRESENT: other - Dressing on inner thigh changed this morning. Did not inspect the wound.. ABSENT: pedal edema - Patient concerned that ankles showing puffiness. No pitting edema. Musculoskeletal exam: PRESENT: normal inspection Neurological exam: PRESENT: alert, awake, oriented to person, oriented to place, oriented to time, oriented to situation, CN II-XII grossly intact Psychiatric exam: PRESENT: appropriate affect. ABSENT: agitated, anxious Skin exam: PRESENT: dry, normal color, warm. ABSENT: rash Results Laboratory Results: 03/26/19 04:57 03/27/19 05:22 03/27/19 05:22 Creatinine 0.65 Est GFR ( Amer) > 60 03/25/19 20:50 Blood Blood Culture (PCR) - Final Staphylococcus Species Impressions: Abdomen/Pelvis CT 03/25/19 19:56 IMPRESSION: 1. Edema in the medial left thigh, likely cellulitis. There is a packed subcutaneous wound, but no abscess on these images. Note that the edema extends more distally than this exam. 2. Slightly enlarged left inguinal lymph node, likely reactive. 3. Small left renal calculus without hydronephrosis 4. Small hiatal hernia 5. Previous cholecystectomy Assessment and Plan - Diagnosis (1) Abscess of left thigh Is this a current diagnosis for this admission?: Yes Plan: 03/27/2019-the patient had incision and drainage with packing. Surgery change the dressing this morning. The patient is complaining of pain. I have expanded the nonnarcotic analgesia regimen. The patient may likely be able to go home tomorrow with oral antibiotic therapy. The wound culture is growing gram- positive cocci in chains which is most likely Streptococcus. With her morbid obesity there is likely a lot of friction with the thighs and this could cause irritation and be a factor leading to infection in this area. There is one blood culture bottle positive for staph species. This may likely be a contaminant. We will continue current antibiotics until identification of bacteria is available. (2) Diabetes mellitus type 2 in obese Is this a current diagnosis for this admission?: Yes Plan: 03/27/2019-the patient's hemoglobin A1c was 8.0. Diabetes in addition to her morbid obesity would make her prone to infections in the groin. Because her Accu-Cheks are elevated I have taken the liberty of starting her on low-dose metformin. We will continue to monitor Accu-Cheks. She is also on low-dose long-acting insulin and sliding scale. Evidently this is a new diagnosis for her. She will need follow-up as an outpatient. (3) Hypertension Qualifiers: Hypertension type: essential hypertension Qualified Code(s): I10 - [facility] ial (primary) hypertension Is this a current diagnosis for this admission?: Yes Plan: 03/27/2019-would continue to encourage low-sodium diet. Blood pressure slightly elevated but this is most likely due to pain. We will continue to monitor. (4) Morbid obesity Is this a current diagnosis for this admission?: Yes Plan: 03/27/2019-BMI is 50. Morbid obesity is likely contributing to her diabetes and as noted above creating mechanical issues with the inside of her thighs making her susceptible to infection. Will suggest aggressive weight loss which will benefit diabetes as well. - Plan Summary Summary: 03/27-await final results of cultures before changing antibiotic therapy. If the primary bacterium is a strep then Augmentin would be an excellent choice. Also under consideration would be the positive blood culture which may likely be a coagulase-negative staph and this is typically a contaminant. The patient may very well be able to go home tomorrow. The was a medic in the [employer] and told me that he would be comfortable with dressing changes at home. - Time Time Spent with patient: 15-24 minutes Medications reviewed and adjusted accordingly: Yes Anticipated discharge: Home Within: within 48 hours
--- NOTE | 2019-03-27 11:15 | PDOC PROGRESS REPORT ---
Subjective Progress Note for:: 03/27/19 Subjective:: Patient tearful, however she feels well Reason For Visit: THIGH CELLULITIS, DIABETES Physical Exam Vital Signs: Temp Pulse Resp BP Pulse Ox 98.4 F 79 17 141/94 H 92 03/27/19 07:28 03/27/19 07:28 03/27/19 07:28 03/27/19 07:28 03/27/19 07:28 Intake & Output 03/26/19 03/27/19 03/28/19 06:59 06:59 06:59 Intake Total 750 5462 Output Total 3108 Balance 750 2354 Weight 128.6 kg 132.8 kg General appearance: PRESENT: no acute distress, obese Gentrourinary exam: PRESENT: indwelling catheter, other - Left upper inner thigh = minimal edema, soft on palpation, minimal tenderness, residual erythema, surgical wound clean, granulating, with minimal drainage, no odor Results Laboratory Results: 03/26/19 04:57 03/27/19 05:22 03/27/19 05:22 Creatinine 0.65 Est GFR ( Amer) > 60 03/25/19 20:50 Blood Blood Culture (PCR) - Final Staphylococcus Species Impressions: Abdomen/Pelvis CT 03/25/19 19:56 IMPRESSION: 1. Edema in the medial left thigh, likely cellulitis. There is a packed subcutaneous wound, but no abscess on these images. Note that the edema extends more distally than this exam. 2. Slightly enlarged left inguinal lymph node, likely reactive. 3. Small left renal calculus without hydronephrosis 4. Small hiatal hernia 5. Previous cholecystectomy Assessment & Plan - Diagnosis (1) Abscess of left thigh Is this a current diagnosis for this admission?: Yes (2) Cellulitis of left thigh Is this a current diagnosis for this admission?: Yes - Time Time Spent with patient: 25-34 minutes - Plan Summary Plan Summary: Assessment: Postoperative day #1 following incision and drainage of left upper inner thigh abscess Patient vital signs are stable, afebrile Physical exam shows a much improved abscess site with minimal edema, residual erythema, soft on palpation, minimal tenderness [place] drains present Leukocytosis 16,000 Abscess site culture significant for 2 separate strains of E. coli sensitive to Zosyn Plan: Replace abscess site wound dressings with normal saline wet-to-dry to clinic twice a day Continue IV antibiotics Patient to be discharged in 1 to 2 days once the leukocytosis improves and the abscess site erythema has mostly subsided
[2019-03-27] MEDS: HEPARIN SOD (PORCINE) 5,000 UNIT/ML 1 ML VIAL SUBCUT SCH ×2 (14:05→21:58)
[2019-03-27] MEDS ORDERED: KETOROLAC TROMETHAMINE INJ/PF 30 MG/1 ML SDV IV PRN (14:29)
[2019-03-27] MEDS ORDERED: KETOROLAC TROMETHAMINE INJ/PF 30 MG/1 ML SDV IV ONE (15:00)
[2019-03-27] MEDS: METFORMIN HCL 500 MG TABLET PO SCH (16:24)
[2019-03-27] MEDS: MAG HYDROX/AL HYDROX/SIMETH SUSP 30 ML UDCUP PO PRN (23:28)
[2019-03-28] MEDS: PIPERACILLIN SODIUM/TAZOBACTAM 3.375 GM in NORMAL SALINE 100 ML IV SCH ×2 (02:23→08:58)
[2019-03-28] MEDS: ACETAMINOPHEN 1,000 MG/100 ML RTUPB IV SCH ×4 (03:01→21:38)
[2019-03-28 05:48] LABS: ABSOLUTE EOSINOPHILS # (AUTO) 0.1 10^3/uL (0.0-0.6); ABSOLUTE LYMPHOCYTES (AUTO) 1.7 10^3/uL (0.5-4.7); ABSOLUTE MONOCYTES (AUTO) 0.5 10^3/uL (0.1-1.4); ABSOLUTE NEUT (AUTO) 6.1 10^3/uL (1.7-8.2); BASOPHILS % (AUTO) 0.3 % (0-2); EOSINOPHILS % (AUTO) 1.7 % (0-6); HEMATOCRIT 36.7 % (36.0-47.0); HEMOGLOBIN 12.7 g/dL (12.0-15.5); LYMPHOCYTES % (AUTO) 20.4 % (13-45); MEAN CORPUSCULAR HEMOGLOBIN 30.7 pg (27.0-33.4); MEAN CORPUSCULAR HGB CONC 34.8 g/dL (32.0-36.0); MEAN CORPUSCULAR VOLUME 88 fl (80-97); MONOCYTES % (AUTO) 5.6 % (3-13); PLATELET COUNT 175 10^3/uL (150-450); RED BLOOD COUNT 4.16 10^6/uL (3.72-5.28); RED CELL DISTRIBUTION WIDTH 13.7 % (11.5-14.0); TOTAL CELLS COUNTED % (AUTO) 100 %; WHITE BLOOD COUNT 8.5 10^3/uL (4.0-10.5)
[2019-03-28] MEDS ORDERED: ONDANSETRON HCL INJ/PF 4 MG/2 ML SDV ONE (08:25)
[2019-03-28] MEDS ORDERED: KETOROLAC TROMETHAMINE 60 MG/2 ML SDV ONE (08:25)
[2019-03-28] MEDS ORDERED: SUCCINYLCHOLINE CHLORIDE INJ 200 MG/10 ML VIAL ONE (08:25)
[2019-03-28] MEDS: HEPARIN SOD (PORCINE) 5,000 UNIT/ML 1 ML VIAL SUBCUT SCH (08:52)
[2019-03-28] MEDS: METFORMIN HCL 500 MG TABLET PO SCH ×2 (08:54→15:41)
[2019-03-28] MEDS: INSULIN LISPRO 100 UNIT/ML 3 ML VIAL SUBCUT SCH (08:54)
[2019-03-28] MEDS ORDERED: NORMAL SALINE 1000 ML 1,000 ML IV PRN (08:59)
[2019-03-28] MEDS ORDERED: DEXTROSE 40% GEL 15 GM TUBE PO PRN ×2 (08:59)
[2019-03-28] MEDS ORDERED: DEXTROSE 50%-WATER 25 GM/50 ML DISP.SYRIN IV PRN ×2 (08:59)
[2019-03-28] MEDS ORDERED: GLUCAGON,HUMAN RECOMB 1 MG INJ SUBCUT PRN (08:59)
[2019-03-28] MEDS: NEOMY/BACITRAC ZN/POLY OINT 15 GM TP SCH (09:05)
[2019-03-28] MEDS: INSULIN GLARGINE,HUM.REC.ANLOG 1,000 UNIT/10 ML VIAL SUBCUT SCH (09:05)
[2019-03-28] MEDS: DOCUSATE SODIUM 100 MG CAPSULE PO SCH ×2 (09:05→17:10)
[2019-03-28] MEDS: FLUCONAZOLE 100 MG TABLET PO SCH (09:05)
[2019-03-28] MEDS: NICOTINE 14 MG/24 HR PATCH.TD24 TD SCH (09:46)
--- NOTE | 2019-03-28 10:09 | PDOC PROGRESS REPORT ---
Subjective Progress Note for:: 03/28/19 Subjective:: Patient is complaining of persistent pain localized between the left labia majora and thigh with drainage Reason For Visit: THIGH CELLULITIS, DIABETES Physical Exam Vital Signs: Temp Pulse Resp BP Pulse Ox 98.5 F 79 17 126/58 H 93 03/27/19 23:25 03/27/19 23:25 03/27/19 23:25 03/27/19 23:25 03/27/19 23:25 Intake & Output 03/27/19 03/28/19 03/29/19 06:59 06:59 06:59 Intake Total 5462 2528 100 Output Total 3108 500 Balance 2354 8 100 Weight 132.8 kg 133.2 kg General appearance: PRESENT: mild distress, obese Extremities exam: PRESENT: other - Left lower extremity = surgical wound located in the skin fold between the left labium and thigh is granulating, no drainage, no tenderness on palpation, no odor, no erythema; presence of draining area with induration located above the surgical incision; new diffuse area of erythema of the inner upper thigh from the perineum to just above the knee Results Laboratory Results: 03/28/19 04:19 03/27/19 05:22 03/28/19 04:19 WBC 8.5 RBC 4.16 Hgb 12.7 Hct 36.7 MCV 88 MCH 30.7 MCHC 34.8 RDW 13.7 Plt Count 175 Seg Neutrophils % 72.0 03/25/19 20:50 Blood Blood Culture (PCR) - Final Staphylococcus Species Impressions: Abdomen/Pelvis CT 03/25/19 19:56 IMPRESSION: 1. Edema in the medial left thigh, likely cellulitis. There is a packed subcutaneous wound, but no abscess on these images. Note that the edema extends more distally than this exam. 2. Slightly enlarged left inguinal lymph node, likely reactive. 3. Small left renal calculus without hydronephrosis 4. Small hiatal hernia 5. Previous cholecystectomy Assessment & Plan - Diagnosis (1) Abscess of left thigh Is this a current diagnosis for this admission?: Yes (2) Cellulitis of left thigh Is this a current diagnosis for this admission?: Yes - Time Time Spent with patient: 35 or more minutes - Plan Summary Plan Summary: Assessment: Postoperative day #3 following incision and drainage of hidradenitis left perineum located between the left labium and thigh Surgical site appears to be clean with no drainage and granulating New abscess site located above the surgical area draining pus with duration Large area of erythema of the left inner thigh extending from the skin fold down to the just above the knee White blood cell count is normalized (8.6) Abscess culture obtained in surgery reveals group B streptococcus as well as anaerobes (identification pending) It appears that the patient has developed a new abscess as well as cellulitis despite administration of antibiotics (Zosyn) and drainage of abscess Plan: Stop Zosyn Start Levaquin and Flagyl Stop Diflucan as it tracks with Levaquin and can cause EKG changes Obtain imaging of the pelvis and left thigh to rule out new abscess formation Keep patient n.p.o. on IV fluids Most likely, patient will be taken to surgery back today for further abscess drainage and wide debridement of the left groin hidradenitis site
--- NOTE | 2019-03-28 10:44 | RADIOLOGY REPORT (SQ) ---
EXAM DESCRIPTION: CT PELVIS WITH COMPLETED DATE/TIME: 03/28/2019 10:31 am REASON FOR STUDY: r/o abscess; s/o I D left perineal abscess, COMPARISON: 03/25/2019 TECHNIQUE: CT scan of the pelvis and left femur performed with intravenous contrast. Images reviewe d with soft tissue and bone windows. Reconstructed coronal and sagittal MPR images reviewed. All im ages stored on PACS. All CT scanners at this facility use dose modulation, iterative reconstruction, and/or weight based d osing when appropriate to reduce radiation dose to as low as reasonably achievable (ALARA). [facility]: Dose Right [facility]: CareDose [facility]: Dose Right [facility]: Teradose 4D [facility]: Smart [employer] RADIATION DOSE: CT Rad equipment meets quality standard of care and radiation dose reduction techniq ues were employed. CTDIvol: 16.9 - 20.8 mGy. DLP: 1832 mGy-cm. mGy. LIMITATIONS: None. FINDINGS: There is a surgical drain the wound in the medial proximal thigh. Inflammatory changes in the more distal medial subcutaneous tissues. No additional abscess identified. No involvement of the pelvic floor. IMPRESSION: Successful drainage of fluid collection. No additional abscess identified. TECHNICAL DOCUMENTATION: JOB ID: [id number] Quality ID # [id number]: Final reports with documentation of one or more dose reduction techniques (e.g., Au tomated exposure control, adjustment of the mA and/or kV according to patient size, use of iterative reconstruction technique) 2010 [employer]- All Rights Reserved Reading location - IP[facility]workstation name: [email or web address]
--- NOTE | 2019-03-28 10:45 | RADIOLOGY REPORT (SQ) ---
EXAM DESCRIPTION: CT LEFT LOWER EXTREMITY WITH COMPLETE DATE/TIME: 03/28/2019 10:31 am REASON FOR STUDY: r/o abscess; s/o I D left perineal abscess, FINDINGS: Please see combined report for performance of procedure and radiologic supervision and int erpretation. IMPRESSION: Please see combined report for performance of procedure and radiologic supervision and i nterpretation. Reading location - IP/workstation name: [email or web address]
[2019-03-28] MEDS ORDERED: FENTANYL CITRATE INJ/PF 100 MCG/2 ML AMPUL ONE (11:50)
[2019-03-28] MEDS ORDERED: KETAMINE HCL INJ 500 MG/10 ML VIAL ONE (11:50)
[2019-03-28] MEDS ORDERED: MIDAZOLAM 2 MG/2 ML INJ ONE (11:50)
[2019-03-28] MEDS ORDERED: PROPOFOL INJ 200 MG/20 ML VIAL IV ONE (11:50)
[2019-03-28] MEDS ORDERED: LIDOCAINE 0.5% INJ-PF (5 MG/ML) 50 ML SDV ONE (11:51)
--- NOTE | 2019-03-28 12:15 | PDOC PROGRESS REPORT ---
Subjective Progress Note for:: 03/28/19 Subjective:: 03/28/2019-patient is tearful. Cellulitis in left thigh has worsened. There appears to be a new abscess cavity. The patient is going back to the operating room. Surgery has changed antibiotic therapy to levofloxacin and metronidazole and they have asked me to start an antifungal medication. The patient has a history of fungal skin fold infections and there is a possibility of the presence of yeast in these lesions. When surgery drains the current cavity they will in fact submit for cultures for bacteria and yeast. Reason For Visit: THIGH CELLULITIS, DIABETES Physical Exam Vital Signs: Temp Pulse Resp BP Pulse Ox 98.6 F 77 18 128/63 H 96 03/28/19 12:04 03/28/19 12:04 03/28/19 12:04 03/28/19 12:04 03/28/19 12:04 Intake & Output 03/27/19 03/28/19 03/29/19 06:59 06:59 06:59 Intake Total 5462 2528 100 Output Total 3108 500 Balance 2354 2028 100 Weight 132.8 kg 133.2 kg General appearance: PRESENT: cooperative, mild distress - Mild to moderate distress, morbidly obese, other - Tearful during this encounter Head exam: PRESENT: atraumatic, normocephalic Ear exam: PRESENT: normal external ear exam. ABSENT: bleeding, drainage Respiratory exam: PRESENT: clear to auscultation gema, symmetrical, unlabored. ABSENT: rales, rhonchi, tachypnea, wheezes Cardiovascular exam: PRESENT: RRR, +S1, +S2. ABSENT: diastolic murmur, systolic murmur GI/Abdominal exam: PRESENT: normal bowel sounds, soft, other - Protuberant abdomen. ABSENT: distended, tenderness Rectal exam: PRESENT: deferred Extremities exam: PRESENT: other - No direct examination as surgery has just examined the patient's leg and it is very uncomfortable. Surgery reports marked increase in erythema almost to the knee. Also a second abscess cavity in the left medial thigh groin area as well. Neurological exam: PRESENT: alert, awake, oriented to person, oriented to place, oriented to time, oriented to situation, CN II-XII grossly intact Psychiatric exam: PRESENT: anxious, other - Very tearful during this discussion. Frustrated with worsening cellulitis and requiring a second operation.. ABSENT: agitated Skin exam: PRESENT: erythema - Left thigh medial aspect Results Laboratory Results: 03/28/19 04:19 03/27/19 05:22 03/28/19 04:19 WBC 8.5 RBC 4.16 Hgb 12.7 Hct 36.7 MCV 88 MCH 30.7 MCHC 34.8 RDW 13.7 Plt Count 175 Seg Neutrophils % 72.0 03/25/19 20:50 Blood Blood Culture (PCR) - Final Staphylococcus Species Impressions: Abdomen/Pelvis CT 03/25/19 19:56 IMPRESSION: 1. Edema in the medial left thigh, likely cellulitis. There is a packed subcutaneous wound, but no abscess on these images. Note that the edema extends more distally than this exam. 2. Slightly enlarged left inguinal lymph node, likely reactive. 3. Small left renal calculus without hydronephrosis 4. Small hiatal hernia 5. Previous cholecystectomy Lower Extremity CT 03/28/19 00:00 IMPRESSION: Please see combined report for performance of procedure and radiologic supervision and interpretation. Pelvis CT 03/28/19 00:00 IMPRESSION: Successful drainage of fluid collection. No additional abscess identified. Assessment and Plan - Diagnosis (1) Abscess of left thigh Is this a current diagnosis for this admission?: Yes Plan: 03/27/2019-the patient had incision and drainage with packing. Surgery change the dressing this morning. The patient is complaining of pain. I have expanded the nonnarcotic analgesia regimen. The patient may likely be able to go home tomorrow with oral antibiotic therapy. The wound culture is growing gram- positive cocci in chains which is most likely Streptococcus. With her morbid obesity there is likely a lot of friction with the thighs and this could cause irritation and be a factor leading to infection in this area. There is one blood culture bottle positive for staph species. This may likely be a contam inant. We will continue current antibiotics until identification of bacteria is available. 03/28/2019-with a positively identified beta-hemolytic strep group be from the initial abscess culture it is very surprising that the patient's infection seems to have worsened. This could be due to a second abscess that was found by surgery today. The patient will be going to the operating room again later today. 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 Despite not showing up on a Gram stain it is certainly possible that yeast can be involved with this infection especially since it did not seem to respond to the IV Zosyn. The patient is worried about MRSA but I told her no methicillin-resistant staph has been found in any of the samples already submitted. Surgery has expanded the antibiotic profile by discontinuing the Zosyn and starting levofloxacin and metronidazole. Because of the possibility of yeast involvement I will start micafungin. If there is no evidence of yeast or fungus by culture then I will discontinue this medication. With her diabetes she is prone to infections and yeast is certainly amongst the common ones. (2) Diabetes mellitus type 2 in obese Is this a current diagnosis for this admission?: Yes Plan: 03/27/2019-the patient's hemoglobin A1c was 8.0. Diabetes in addition to her morbid obesity would make her prone to infections in the groin. Because her Accu-Cheks are elevated I have taken the liberty of starting her on low-dose metformin. We will continue to monitor Accu-Cheks. She is also on low-dose long-acting insulin and sliding scale. Evidently this is a new diagnosis for her. She will need follow-up as an outpatient. 03/28/2019-in addition to the low-dose Lantus I have instituted a sliding scale. Accu-Cheks will continue at meals and [place] likely add bedtime check as well. Will adjust medications based on her Accu-Cheks. Hopefully the low-dose metformin that I instituted will help as well. When the patient resumes an oral diet we will make sure it is a controlled carbohydrate diet. (3) Hypertension Qualifiers: Hypertension type: essential hypertension Qualified Code(s): I10 - Essential (primary) hypertension Is this a current diagnosis for this admission?: Yes Plan: 03/27/2019-would continue to encourage low-sodium diet. Blood pressure slightly elevated but this is most likely due to pain. We will continue to monitor. 03/28/2019-blood pressures are normal today. The pain most likely contributed to spikes in her blood pressure yesterday. No antihypertensive medication required at this time. Continue to monitor blood pressures. (4) Morbid obesity Is this a current diagnosis for this admission?: Yes Plan: 03/27/2019-BMI is 50. Morbid obesity is likely contributing to her diabetes and as noted above creating mechanical issues with the inside of her thighs making her susceptible to infection. Will suggest aggressive weight loss which will benefit diabetes as well. 03/28/2019-we reviewed the patient's problems with skin fold moisture management and yeast infections. I explained the use of the product Interdry Ag. I abuse this extensively in wound care. It is a moisture wicking product that contains silver for antimicrobial effect. I explained that post discharge this would be an excellent product for the patient. We also discussed the importance of weight loss especially with her underlying diabetes and skin fold management issues. With the inter-dry the patient's skin fold moisture should be very well managed and this will reduce the incidence of irritation and infection. (5) Depression Qualifiers: Depression Type: unspecified Qualified Code(s): F32.9 - Major depressive disorder, single episode, unspecified Is this a current diagnosis for this admission?: Yes Plan: 03/28/2019-the patient was tearful during this encounter. Clearly she is overwhelmed and disappointed with her current clinical course. We discussed antidepressant therapy. She states that she has been on citalopram in the past with good effect. She was also on Lamictal at that time. Because Lamictal dosing should not be interrupted and must be tapered up slowly I will initiate citalopram therapy at this time. Lamictal can be reinstituted after discharge. - Plan Summary Summary: 03/27-await final results of cultures before changing antibiotic therapy. If the primary bacterium is a strep then Augmentin would be an excellent choice. Also under consideration would be the positive blood culture which may likely be a coagulase-negative staph and this is typically a contaminant. The patient may very well be able to go home tomorrow. The was a medic in the [employer] and told me that he would be comfortable with dressing changes at home. 03/28/2019-antibiotic changes as noted above. Unfortunately the patient will require further debridement and this will be performed today. New cultures will be obtained and these will include anaerobic bacteria and fungus. - Time Time Spent with patient: 25-34 minutes Medications reviewed and adjusted accordingly: Yes Anticipated discharge: Home
[2019-03-28] MEDS: LEVOFLOXACIN 750 MG/D5W RTU 750 MG/150 ML RTUPB IV SCH (12:36)
[2019-03-28] MEDS: METRONIDAZOLE 500 MG/NS RTU 500 MG/100 ML RTUPB IV SCH ×3 (12:36→22:40)
[2019-03-28] MEDS ORDERED: MEPERIDINE HCL/PF INJ 25 MG/1 ML DISP.SYRIN IV PRN (12:52)
[2019-03-28] MEDS ORDERED: ONDANSETRON HCL INJ/PF 4 MG/2 ML SDV IV PRN (12:52)
[2019-03-28] MEDS ORDERED: OXYCODONE-ACETAMINOPHEN 5-325 MG TABLET PO PRN ×2 (12:52)
[2019-03-28] MEDS ORDERED: MORPHINE SULFATE 10 MG/ML INJ IV PRN (12:52)
[2019-03-28] MEDS ORDERED: DIPHENHYDRAMINE HCL 50 MG/ML VIAL IV PRN (12:52)
[2019-03-28] MEDS ORDERED: FENTANYL CITRATE INJ/PF 100 MCG/2 ML AMPUL IV PRN ×3 (12:52)
[2019-03-28] MEDS ORDERED: PROMETHAZINE HCL INJ 25 MG/1 ML VIAL IV PRN ×2 (12:52)
[2019-03-28] MEDS: MICAFUNGIN SODIUM 100 MG in NORMAL SALINE 100 ML IV SCH (13:19)
--- NOTE | 2019-03-28 13:44 | Operative Report ---
Nonrecallable Operative Report DATE OF SURGERY: 03/28/19 PREOPERATIVE DIAGNOSIS: Recurrent left groin hidradenitis abscess POSTOPERATIVE DIAGNOSIS: Same OPERATION: Wide excision left groin hidradenitis abscess area measuring 20 x 8 cm SURGEON: KORIN ELLIOTT ANESTHESIA: GA TISSUE REMOVED OR ALTERED: Skin and subcutaneous fat of left groin COMPLICATIONS: None ESTIMATED BLOOD LOSS: 20 mL INTRAOPERATIVE FINDINGS: Chronic and acute abscess formation of left groin area PROCEDURE: The procedure was done in the operating room, general anesthesia was induced by the anesthesiologist, the patient was placed in a supine and frog-leg decubitus , the area of interest located in the left groin was prepped and draped in usual fashion. A surgical marker was used to outline the proposed incision extended from just above the midline of the left groin down to the perineum below the drain placement site, this was made with a Bovie and deepened through the healthy tissue until good bleeding was obtained. All the scarred down tissue well as the acute and chronic abscess lesions were included in the dissected tissue. The dissection was then continued to completely excise the area of interest previously outlined. Cultures were obtained and sent for aerobic, anaerobic, and stain. The debrided area was irrigated with normal saline until clear. Local bleeders were cauterized with Bovie or suture ligated with [id number] 2-0 and 0 Vicryl sutures. Following this, the area was packed with one 4 inch Kerlix roll soaked in a 50% Betadine solution, followed by ABDs and tape. The patient tolerated the procedure well, was extubated, and transferred to the recovery room in satisfactory conditions.
[2019-03-28] MEDS ORDERED: OXYCODONE-ACETAMINOPHEN 5-325 MG TABLET ONE (14:01)
[2019-03-28] MEDS: KETOROLAC TROMETHAMINE INJ/PF 30 MG/1 ML SDV IV SCH ×3 (14:41→23:11)
[2019-03-28 16:19] LABS: APPEARANCE,URINE CLEAR; BILIRUBIN,URINE NEGATIVE (NEGATIVE); COLOR,URINE YELLOW; GLUCOSE, URINE NEGATIVE (NEGATIVE); KETONES,URINE NEGATIVE (NEGATIVE); LEUKOCYTE ESTERASE,URINE NEGATIVE (NEGATIVE); NITRITE,URINE NEGATIVE (NEGATIVE); PROTEIN,URINE NEGATIVE (NEGATIVE); URINE SPECIFIC GRAVITY 1.043; UROBILINOGEN,URINE NEGATIVE mg/dL (<2.0)
[2019-03-28] MEDS: INSULIN REG, HUMAN 100 UNIT/ML 3 ML VIAL (PYX) SUBCUT SCH ×2 (17:09→21:51)
[2019-03-28] MEDS: ENOXAPARIN SODIUM INJ 40 MG/0.4 ML DISP.SYRIN SUBCUT SCH (17:12)
[2019-03-28] MEDS: CITALOPRAM HYDROBROMIDE 20 MG TABLET PO SCH (21:38)
[2019-03-28] MEDS: HYDROMORPHONE HCL INJ/PF 2 MG/ML AMPULE IV PRN (22:39)
[2019-03-29] MEDS: ACETAMINOPHEN 1,000 MG/100 ML RTUPB IV SCH (02:41)
[2019-03-29] MEDS: KETOROLAC TROMETHAMINE INJ/PF 30 MG/1 ML SDV IV SCH ×4 (05:34→23:24)
[2019-03-29] MEDS: METRONIDAZOLE 500 MG/NS RTU 500 MG/100 ML RTUPB IV SCH ×3 (05:34→21:25)
[2019-03-29 06:11] LABS: ABSOLUTE BASOPHILS # (AUTO) 0.1 10^3/uL (0.0-0.2); ABSOLUTE EOSINOPHILS # (AUTO) 0.1 10^3/uL (0.0-0.6); ABSOLUTE LYMPHOCYTES (AUTO) 1.3 10^3/uL (0.5-4.7); ABSOLUTE MONOCYTES (AUTO) 0.4 10^3/uL (0.1-1.4); ABSOLUTE NEUT (AUTO) 3.7 10^3/uL (1.7-8.2); BASOPHILS % (AUTO) 1.4 % (0-2); EOSINOPHILS % (AUTO) 2.4 % (0-6); HEMATOCRIT 35.3 % (36.0-47.0); HEMOGLOBIN 12.2 g/dL (12.0-15.5); LYMPHOCYTES % (AUTO) 22.5 % (13-45); MEAN CORPUSCULAR HEMOGLOBIN 30.3 pg (27.0-33.4); MEAN CORPUSCULAR HGB CONC 34.7 g/dL (32.0-36.0); MEAN CORPUSCULAR VOLUME 87 fl (80-97); MONOCYTES % (AUTO) 7.4 % (3-13); PLATELET COUNT 209 10^3/uL (150-450); RED BLOOD COUNT 4.03 10^6/uL (3.72-5.28); RED CELL DISTRIBUTION WIDTH 13.6 % (11.5-14.0); SEGMENTED NEUTROPHILS % (AUTO) 66.3 % (42-78); TOTAL CELLS COUNTED % (AUTO) 100 %; WHITE BLOOD COUNT 5.6 10^3/uL (4.0-10.5)
[2019-03-29 06:32] LABS: ANION GAP 6 (5-19); BLOOD UREA NITROGEN 14 mg/dL (7-20); CALCIUM 8.4 mg/dL (8.4-10.2); CARBON DIOXIDE 26 mmol/L (22-30); CHLORIDE 108 mmol/L (98-107); GLUCOSE 127 mg/dL (75-110); POTASSIUM 4.2 mmol/L (3.6-5.0)
[2019-03-29] MEDS: INSULIN REG, HUMAN 100 UNIT/ML 3 ML VIAL (PYX) SUBCUT SCH ×4 (09:07→21:21)
[2019-03-29] MEDS: HYDROMORPHONE HCL INJ/PF 2 MG/ML AMPULE IV PRN (09:08)
[2019-03-29] MEDS: METFORMIN HCL 500 MG TABLET PO SCH ×2 (09:08→17:17)
--- NOTE | 2019-03-29 09:52 | PDOC PROGRESS REPORT ---
Subjective Progress Note for:: 03/29/19 Subjective:: Patient is fearful, pain diminished. No fever overnight. Reason For Visit: THIGH CELLULITIS, DIABETES Physical Exam Vital Signs: Temp Pulse Resp BP Pulse Ox 98.4 F 70 20 139/75 H 98 03/29/19 07:45 03/29/19 07:45 03/29/19 07:45 03/29/19 07:45 03/29/19 07:45 Intake & Output 03/28/19 03/29/19 03/30/19 06:59 06:59 06:59 Intake Total 2528 3393 Output Total 500 1240 Balance 2027 2152 Weight 133.2 kg 138.1 kg General appearance: PRESENT: mild distress Extremities exam: PRESENT: other - Left groin exposed all packing removed. Surrounding skin cellulitis diminished; wound cavity clean minimal amount of nonviable subcutaneous tissue, majority of wound bed clean without drainage or foul smell. Results Laboratory Results: 03/29/19 05:46 03/29/19 05:46 03/28/19 03/29/19 03/29/19 15:55 05:46 05:46 WBC 5.6 RBC 4.03 Hgb 12.2 Hct 35.3 L MCV 87 MCH 30.3 MCHC 34.7 RDW 13.6 Plt Count 209 Seg Neutrophils % 66.3 Sodium 139.8 Potassium 4.2 Chloride 108 H Carbon Dioxide 26 Anion Gap 6 BUN 14 Creatinine 0.55 Est GFR ( Amer) > 60 Glucose 127 H Calcium 8.4 Urine Color YELLOW Urine Appearance CLEAR Urine pH 5.0 Ur Specific [place] 1.043 Urine Protein NEGATIVE Urine Glucose (UA) NEGATIVE Urine Ketones NEGATIVE Urine Blood NEGATIVE Urine Nitrite NEGATIVE Ur Leukocyte Esterase NEGATIVE Urine WBC (Auto) 1 Urine RBC (Auto) 4 03/25/19 20:50 Blood Blood Culture (PCR) - Final Staphylococcus Species 03/25/19 20:50 Blood Blood Culture - Final Staphylococcus Simulans Impressions: Abdomen/Pelvis CT 03/25/19 19:56 IMPRESSION: 1. Edema in the medial left thigh, likely cellulitis. There is a packed subcutaneous wound, but no abscess on these images. Note that the edema extends more distally than this exam. 2. Slightly enlarged left inguinal lymph node, likely reactive. 3. Small left renal calculus without hydronephrosis 4. Small hiatal hernia 5. Previous cholecystectomy Lower Extremity CT 03/28/19 00:00 IMPRESSION: Please see combined report for performance of procedure and radiologic supervision and interpretation. Pelvis CT 03/28/19 00:00 IMPRESSION: Successful drainage of fluid collection. No additional abscess identified. Assessment & Plan - Diagnosis (1) Abscess of left thigh Is this a current diagnosis for this admission?: Yes Plan: Impression: Deep soft tissue infection left groin now with apparent septic worse controlled after 2 sequential debridements; growing multiple gram-negative and anaerobic organisms, on appropriate empiric antibiotic therapy Recommendations: 1. Wound appears to be coming under control; no indication for surgical debri karlo today. 2. We will get up, and Vick out 3. We will get patient in the shower, with wound packing out, with a scrub brush and get patient involved in her local wound care. 4. Continue current antibiotic regimen, follow-up on sensitivities - Time Time Spent with patient: 15-24 minutes
[2019-03-29] MEDS ORDERED: HYDROMORPHONE HCL INJ/PF 2 MG/ML AMPULE IV PRN (09:53)
[2019-03-29] MEDS: ENOXAPARIN SODIUM INJ 40 MG/0.4 ML DISP.SYRIN SUBCUT SCH (10:32)
[2019-03-29] MEDS: DOCUSATE SODIUM 100 MG CAPSULE PO SCH ×3 (10:32→17:17)
[2019-03-29] MEDS: MICAFUNGIN SODIUM 100 MG in NORMAL SALINE 100 ML IV SCH (10:32)
[2019-03-29] MEDS: NICOTINE 14 MG/24 HR PATCH.TD24 TD SCH (10:54)
--- NOTE | 2019-03-29 12:23 | PDOC PROGRESS REPORT ---
Subjective Progress Note for:: 03/29/19 Subjective:: The patient is resting in bed. She reports feeling no better today. She had a second surgical resection but still has pain. She has already been seen by the surgical list and had her dressing changed. She reports that she is not as tearful as yesterday. Reason For Visit: THIGH CELLULITIS, DIABETES Physical Exam Vital Signs: Temp Pulse Resp BP Pulse Ox 98.4 F 70 20 139/75 H 98 03/29/19 07:45 03/29/19 07:45 03/29/19 07:45 03/29/19 07:45 03/29/19 07:45 Intake & Output 03/28/19 03/29/19 03/30/19 06:59 06:59 06:59 Intake Total 2528 3393 Output Total 500 1240 Balance 2027 2152 Weight 133.2 kg 138.1 kg General appearance: PRESENT: no acute distress, cooperative, morbidly obese, well-developed, well-nourished Head exam: PRESENT: atraumatic, normocephalic Eye exam: PRESENT: conjunctiva pink, EOMI. ABSENT: scleral icterus Ear exam: PRESENT: normal external ear exam. ABSENT: bleeding, drainage Mouth exam: PRESENT: moist, tongue midline Respiratory exam: PRESENT: clear to auscultation gema, symmetrical, unlabored. ABSENT: rales, rhonchi, tachypnea, wheezes Cardiovascular exam: PRESENT: diastolic murmur - 2/6 right sternal border, RRR, +S1, +S2 GI/Abdominal exam: PRESENT: normal bowel sounds, soft, other - Protuberant abdomen. ABSENT: tenderness Rectal exam: PRESENT: deferred Extremities exam: ABSENT: pedal edema Musculoskeletal exam: PRESENT: ambulatory. ABSENT: full ROM - Decreased range of motion of the left leg due to recent surgery and pain. Neurological exam: PRESENT: alert, awake, oriented to person, oriented to place, oriented to time, oriented to situation, CN II-XII grossly intact Psychiatric exam: PRESENT: appropriate affect - She is not tearful today. ABSENT: agitated, anxious Focused psych exam: ABSENT: delusional, restlessness Skin exam: PRESENT: dry, warm, other - Dressing in the left groin. ABSENT: rash Results Laboratory Results: 03/29/19 05:46 03/29/19 05:46 03/28/19 03/29/19 03/29/19 15:55 05:46 05:46 WBC 5.6 RBC 4.03 Hgb 12.2 Hct 35.3 L MCV 87 MCH 30.3 MCHC 34.7 RDW 13.6 Plt Count 209 Seg Neutrophils % 66.3 Sodium 139.8 Potassium 4.2 Chloride 108 H Carbon Dioxide 26 Anion Gap 6 BUN 14 Creatinine 0.55 Est GFR ( Amer) > 60 Glucose 127 H Calcium 8.4 Urine Color YELLOW Urine Appearance CLEAR Urine pH 5.0 Ur Specific [place] 1.043 Urine Protein NEGATIVE Urine Glucose (UA) NEGATIVE Urine Ketones NEGATIVE Urine Blood NEGATIVE Urine Nitrite NEGATIVE Ur Leukocyte Esterase NEGATIVE Urine WBC (Auto) 1 Urine RBC (Auto) 4 03/25/19 19:59 Groin - Abscess Gram Stain - Final 03/25/19 19:59 Groin - Abscess Wound Culture - Final Group B Beta Streptococcus Peptostreptococcus Species Prevotella Species 03/25/19 20:50 Blood Blood Culture (PCR) - Final Staphylococcus Species 03/25/19 20:50 Blood Blood Culture - Final Staphylococcus Simulans Impressions: Abdomen/Pelvis CT 03/25/19 19:56 IMPRESSION: 1. Edema in the medial left thigh, likely cellulitis. There is a packed subcutaneous wound, but no abscess on these images. Note that the edema extends more distally than this exam. 2. Slightly enlarged left inguinal lymph node, likely reactive. 3. Small left renal calculus without hydronephrosis 4. Small hiatal hernia 5. Previous cholecystectomy Lower Extremity CT 03/28/19 00:00 IMPRESSION: Please see combined report for performance of procedure and radiologic supervision and interpretation. Pelvis CT 03/28/19 00:00 IMPRESSION: Successful drainage of fluid collection. No additional abscess identified. Assessment and Plan - Diagnosis (1) Abscess of left thigh Is this a current diagnosis for this admission?: Yes Plan: 03/27/2019-the patient had incision and drainage with packing. Surgery change the dressing this morning. The patient is complaining of pain. I have expanded the nonnarcotic analgesia regimen. The patient may likely be able to go home tomorrow with oral antibiotic therapy. The wound culture is growing gram- positive cocci in chains which is most likely Streptococcus. With her morbid obesity there is likely a lot of friction with the thighs and this could cause irritation and be a factor leading to infection in this area. There is one blood culture bottle positive for staph species. This may likely be a contaminant. We will continue current antibiotics until identification of bacteria is available. 03/28/2019-with a positively identified beta-hemolytic strep group be from the initial abscess culture it is very surprising that the patient's infection seems to have worsened. This could be due to a second abscess that was found by surgery today. The patient will be going to the operating room again later today. 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 Despite not showing up on a Gram stain it is certainly possible that yeast can be involved with this infection especially since it did not seem to respond to the IV Zosyn. The patient is worried about MRSA but I told her no methicillin-resistant staph has been found in any of the samples already submitted. Surgery has expanded the antibiotic profile by discontinuing the Zosyn and starting levofloxacin and metronidazole. Because of the possibility of yeast involvement I will start micafungin. If there is no evidence of yeast or fungus by culture then I will discontinue this medication. With her diabetes she is prone to infections and yeast is certainly amongst the common ones. 03/29/2019-the patient underwent a second surgery yesterday. Still has a larger wound. According to surgery there is clean tissue at the base. Her dressing was changed this morning. (2) Diabetes mellitus type 2 in obese Is this a current diagnosis for this admission?: Yes Plan: 03/27/2019-the patient's hemoglobin A1c was 8.0. Diabetes in addition to her morbid obesity would make her prone to infections in the groin. Because her Accu-Cheks are elevated I have taken the liberty of starting her on low-dose metformin. We will continue to monitor Accu-Cheks. She is also on low-dose long-acting insulin and sliding scale. Evidently this is a new diagnosis for her. She will need follow-up as an outpatient. 03/28/2019-in addition to the low-dose Lantus I have instituted a sliding scale. Accu-Cheks will continue at meals and AK likely add bedtime check as well. Sy stroud adjust medications based on her Accu-Cheks. Hopefully the low-dose metformin that I instituted will help as well. When the patient resumes an oral diet we will make sure it is a controlled carbohydrate diet. 03/29/2019-continue current regimen as the patient exhibits good glucose control. We will continue to monitor Accu-Cheks and adjust therapy accordingly. (3) Hypertension Qualifiers: Hypertension type: essential hypertension Qualified Code(s): I10 - Essential (primary) hypertension Is this a current diagnosis for this admission?: Yes Plan: 03/27/2019-would continue to encourage low-sodium diet. Blood pressure slightly elevated but this is most likely due to pain. We will continue to monitor. 03/28/2019-blood pressures are normal today. The pain most likely contributed to spikes in her blood pressure yesterday. No antihypertensive medication required at this time. Continue to monitor blood pressures. 03/29/2019-vital signs indicate reasonable blood pressure control. Continue to monitor. Currently not on any medication but will initiate antihypertensive medications based on blood pressure. (4) Morbid obesity Is this a current diagnosis for this admission?: Yes Plan: 03/27/2019-BMI is 50. Morbid obesity is likely contributing to her diabetes and as noted above creating mechanical issues with the inside of her thighs making her susceptible to infection. Will suggest aggressive weight loss which will benefit diabetes as well. 03/28/2019-we reviewed the patient's problems with skin fold moisture management and yeast infections. I explained the use of the product Interdry Ag. I abuse this extensively in wound care. It is a moisture wicking product that contains silver for antimicrobial effect. I explained that post discharge this would be an excellent product for the patient. We also discussed the importance of weight loss especially with her underlying diabetes and skin fold management issues. With the inter-dry the patient's skin fold moisture should be very well managed and this will reduce the incidence of irritation and infection. 03/29/2019-we did discuss weight management. The patient is aware of the need to lose weight. This has been a challenge partly because of psychosocial issues. Many antidepressants can in fact cause weight gain. (5) Depression Qualifiers: Depression Type: unspecified Qualified Code(s): F32.9 - Major depressive disorder, single episode, unspecified Is this a current diagnosis for this admission?: Yes Plan: 03/28/2019-the patient was tearful during this encounter. Clearly she is ov erwhelmed and disappointed with her current clinical course. We discussed antidepressant therapy. She states that she has been on citalopram in the past with good effect. She was also on Lamictal at that time. Because Lamictal dosing should not be interrupted and must be tapered up slowly I will initiate citalopram therapy at this time. Lamictal can be reinstituted after discharge. 03/29/2019-the patient citalopram was reinitiated. She has tolerated this in the past. Post discharge she will be able to reinstitute her Lamictal and possibly utilize an antidepressant without weight gaining adverse effects. (6) Tricuspid regurgitation Qualifiers: Cardiac valve disease etiology: etiology unspecified Qualified Code(s): I07.1 - Rheumatic tricuspid insufficiency Is this a current diagnosis for this admission?: Yes Plan: 03/29/2019-after the exam I inquired if the patient had a history of heart murmur. She in fact stated that in the past she has had a heart murmur. She did have an echocardiogram and it revealed leaking of the tricuspid valve. At the time of some of her physician encounters the murmur was undetectable. Since this is previously documented and evaluated no further imaging studies at this time. - Plan Summary Summary: 03/27-await final results of cultures before changing antibiotic therapy. If the primary bacterium is a strep then Augmentin would be an excellent choice. Also under consideration would be the positive blood culture which may likely be a coagulase-negative staph and this is typically a contaminant. The patient may very well be able to go home tomorrow. The was a medic in the [employer] and told me that he would be comfortable with dressing changes at home. 03/28/2019-antibiotic changes as noted above. Unfortunately the patient will require further debridement and this will be performed today. New cultures will be obtained and these will include anaerobic bacteria and fungus. - Time Time Spent with patient: 25-34 minutes Medications reviewed and adjusted accordingly: Yes Anticipated discharge: Home
[2019-03-29] MEDS: OXYCODONE-ACETAMINOPHEN 5-325 MG TABLET PO PRN ×2 (12:45→19:30)
[2019-03-29] MEDS: LEVOFLOXACIN 750 MG/D5W RTU 750 MG/150 ML RTUPB IV SCH (12:46)
--- NOTE | 2019-03-29 16:21 | EKG REPORT ---
SEVERITY:- NORMAL ECG - SINUS RHYTHM : Confirmed by: Jolynn Metzger MD 29-Mar-2019 16:20:53
[2019-03-29] MEDS: CITALOPRAM HYDROBROMIDE 20 MG TABLET PO SCH (21:25)
[2019-03-29] MEDS ORDERED: MELATONIN 5 MG TABLET PO PRN (21:41)
[2019-03-29] MEDS ORDERED: BISACODYL 5 MG TABEC PO PRN (21:55)
[2019-03-29] MEDS ORDERED: BISACODYL 10 MG SUPP.RECT PR PRN (21:55)
[2019-03-30] MEDS: OXYCODONE-ACETAMINOPHEN 5-325 MG TABLET PO PRN ×3 (05:13→22:21)
[2019-03-30] MEDS: METRONIDAZOLE 500 MG/NS RTU 500 MG/100 ML RTUPB IV SCH ×3 (05:59→22:22)
[2019-03-30] MEDS: KETOROLAC TROMETHAMINE INJ/PF 30 MG/1 ML SDV IV SCH ×4 (06:00→23:23)
[2019-03-30 06:18] LABS: ANION GAP 9 (5-19); BLOOD UREA NITROGEN 15 mg/dL (7-20); CALCIUM 8.9 mg/dL (8.4-10.2); CARBON DIOXIDE 24 mmol/L (22-30); CHLORIDE 106 mmol/L (98-107); GLUCOSE 164 mg/dL (75-110); POTASSIUM 4.1 mmol/L (3.6-5.0)
[2019-03-30 06:25] LABS: ABSOLUTE BASOPHILS # (AUTO) 0.1 10^3/uL (0.0-0.2); ABSOLUTE EOSINOPHILS # (AUTO) 0.1 10^3/uL (0.0-0.6); ABSOLUTE LYMPHOCYTES (AUTO) 1.2 10^3/uL (0.5-4.7); ABSOLUTE MONOCYTES (AUTO) 0.5 10^3/uL (0.1-1.4); ABSOLUTE NEUT (AUTO) 5.3 10^3/uL (1.7-8.2); BASOPHILS % (AUTO) 1.3 % (0-2); EOSINOPHILS % (AUTO) 2.1 % (0-6); HEMATOCRIT 34.3 % (36.0-47.0); HEMOGLOBIN 12.1 g/dL (12.0-15.5); LYMPHOCYTES % (AUTO) 16.5 % (13-45); MEAN CORPUSCULAR HEMOGLOBIN 30.5 pg (27.0-33.4); MEAN CORPUSCULAR HGB CONC 35.2 g/dL (32.0-36.0); MEAN CORPUSCULAR VOLUME 87 fl (80-97); MONOCYTES % (AUTO) 6.4 % (3-13); PLATELET COUNT 229 10^3/uL (150-450); RED BLOOD COUNT 3.95 10^6/uL (3.72-5.28); RED CELL DISTRIBUTION WIDTH 13.6 % (11.5-14.0); SEGMENTED NEUTROPHILS % (AUTO) 73.7 % (42-78); TOTAL CELLS COUNTED % (AUTO) 100 %; WHITE BLOOD COUNT 7.1 10^3/uL (4.0-10.5)
--- NOTE | 2019-03-30 08:37 | PDOC PROGRESS REPORT ---
Subjective Progress Note for:: 03/30/19 Subjective:: Patient comfortable Reason For Visit: THIGH CELLULITIS, DIABETES Physical Exam Vital Signs: Temp Pulse Resp BP Pulse Ox 97.5 F 71 18 130/63 H 98 03/29/19 23:45 03/29/19 23:45 03/29/19 23:45 03/29/19 23:45 03/29/19 23:45 Intake & Output 03/29/19 03/30/19 03/31/19 06:59 06:59 06:59 Intake Total 3493 1680 Output Total 1240 625 Balance 2253 1055 Weight 138.1 kg 136 kg General appearance: PRESENT: no acute distress, obese Gentrourinary exam: PRESENT: other - Left groin area = debrided surgical site granulating, no odor, minimal drainage, minimal surrounding edema and erythema Left thigh = decreased intensity of erythema Results Laboratory Results: 03/30/19 05:37 03/30/19 05:37 03/30/19 03/30/19 05:37 05:37 WBC 7.1 RBC 3.95 Hgb 12.1 Hct 34.3 L MCV 87 MCH 30.5 MCHC 35.2 RDW 13.6 Plt Count 229 Seg Neutrophils % 73.7 Sodium 138.6 Potassium 4.1 Chloride 106 Carbon Dioxide 24 Anion Gap 9 BUN 15 Creatinine 0.56 Est GFR ( Amer) > 60 Glucose 164 H Calcium 8.9 03/25/19 19:59 Groin - Abscess Gram Stain - Final 03/25/19 19:59 Groin - Abscess Wound Culture - Final Group B Beta Streptococcus Peptostreptococcus Species Prevotella Species 03/25/19 20:50 Blood Blood Culture (PCR) - Final Staphylococcus Species 03/25/19 20:50 Blood Blood Culture - Final Staphylococcus Simulans Impressions: Abdomen/Pelvis CT 03/25/19 19:56 IMPRESSION: 1. Edema in the medial left thigh, likely cellulitis. There is a packed subcutaneous wound, but no abscess on these images. Note that the edema extends more distally than this exam. 2. Slightly enlarged left inguinal lymph node, likely reactive. 3. Small left renal calculus without hydronephrosis 4. Small hiatal hernia 5. Previous cholecystectomy Lower Extremity CT 03/28/19 00:00 IMPRESSION: Please see combined report for performance of procedure and rad iologic supervision and interpretation. Pelvis CT 03/28/19 00:00 IMPRESSION: Successful drainage of fluid collection. No additional abscess identified. Assessment & Plan - Diagnosis (1) Abscess of left thigh Is this a current diagnosis for this admission?: Yes (2) Cellulitis of left thigh Is this a current diagnosis for this admission?: Yes - Time Time Spent with patient: 25-34 minutes - Plan Summary Plan Summary: Assessment: Postop day #4 and 2 following debridement and wide excision of left groin hidradenitis abscess Vital signs stable, patient is afebrile Physical exam demonstrates a well granulating surgical area Normal white blood cell count Culture positive for multiple organisms (Streptococcus, Prevotella, and Peptostreptococcus) all sensitive to Levaquin and Flagyl Patient currently on intravenous antifungal agent (micafungin) Patient symptoms much improved following the wide excision of the hidradenitis area Plan: Continue IV antibiotics Continue antifungal agent Apply nystatin drainage to skin folds Apply wound VAC to left groin area Insert Vick while the wound VAC is in place If not tolerated, patient to be started on normal saline wet-to-dry dressing changes to left groin and discharged to home with such dressings
[2019-03-30] MEDS: METFORMIN HCL 500 MG TABLET PO SCH ×2 (08:59→16:56)
[2019-03-30] MEDS: INSULIN REG, HUMAN 100 UNIT/ML 3 ML VIAL (PYX) SUBCUT SCH ×4 (08:59→23:39)
[2019-03-30] MEDS: MICAFUNGIN SODIUM 100 MG in NORMAL SALINE 100 ML IV SCH (10:54)
[2019-03-30] MEDS: POLYETHYLENE GLYCOL 3350 POWDER 17 GM/1 PACKET PO SCH (10:54)
[2019-03-30] MEDS: LEVOFLOXACIN 750 MG/D5W RTU 750 MG/150 ML RTUPB IV SCH (10:55)
[2019-03-30] MEDS: NYSTATIN TOPICAL POWDER 15 GM TP SCH ×2 (10:55→22:22)
[2019-03-30] MEDS: NICOTINE 14 MG/24 HR PATCH.TD24 TD SCH (10:56)
[2019-03-30] MEDS: DOCUSATE SODIUM 100 MG CAPSULE PO SCH ×2 (12:49→18:07)
[2019-03-30] MEDS: ENOXAPARIN SODIUM INJ 40 MG/0.4 ML DISP.SYRIN SUBCUT SCH (12:49)
--- NOTE | 2019-03-30 14:04 | PDOC PROGRESS REPORT ---
Subjective Progress Note for:: 03/30/19 Subjective:: The patient is very tearful today. Her is at the bedside. She just had a VAC placed in her left groin. She is upset about the placement of the Vick catheter and the need to use a bedpan. She is overwhelmed with the length of time that it will take to heal this wound as well as the limited activity while utilizing the VAC negative pressure device. Reason For Visit: THIGH CELLULITIS, DIABETES Physical Exam Vital Signs: Temp Pulse Resp BP Pulse Ox 97.8 F 70 20 147/87 H 100 03/30/19 08:00 03/30/19 08:00 03/30/19 08:00 03/30/19 08:00 03/30/19 08:00 Intake & Output 03/29/19 03/30/19 03/31/19 06:59 06:59 06:59 Intake Total 3493 1680 100 Output Total 1240 625 Balance 2253 1055 100 Weight 138.1 kg 136 kg General appearance: PRESENT: cooperative, morbidly obese, well-developed, well-nourished Head exam: PRESENT: atraumatic, normocephalic Ear exam: PRESENT: normal external ear exam. ABSENT: bleeding, drainage Mouth exam: PRESENT: neck supple, tongue midline Respiratory exam: PRESENT: clear to auscultation gema, symmetrical, unlabored. ABSENT: accessory muscle use, rales, rhonchi, tachypnea, wheezes Cardiovascular exam: PRESENT: diastolic murmur - 2/6, RRR, +S1, +S2 GI/Abdominal exam: PRESENT: normal bowel sounds, soft, other - Protuberant abdomen. ABSENT: tenderness Rectal exam: PRESENT: deferred Gentrourinary exam: PRESENT: indwelling catheter Extremities exam: PRESENT: other - VAC dressing in the left groin. ABSENT: pedal edema Neurological exam: PRESENT: alert, awake, oriented to person, oriented to place, oriented to time, oriented to situation, CN II-XII grossly intact Psychiatric exam: PRESENT: anxious, depressed Results Laboratory Results: 03/30/19 05:37 03/30/19 05:37 03/30/19 03/30/19 05:37 05:37 WBC 7.1 RBC 3.95 Hgb 12.1 Hct 34.3 L MCV 87 MCH 30.5 MCHC 35.2 RDW 13.6 Plt Count 229 Seg Neutrophils % 73.7 Sodium 138.6 Potassium 4.1 Chloride 106 Carbon Dioxide 24 Anion Gap 9 BUN 15 Creatinine 0.56 Est GFR ( Amer) > 60 Glucose 164 H Calcium 8.9 03/25/19 19:59 Groin - Abscess Gram Stain - Final 03/25/19 19:59 Groin - Abscess Wound Culture - Final Group B Beta Streptococcus Peptostreptococcus Species Prevotella Species 03/25/19 20:50 Blood Blood Culture (PCR) - Final Staphylococcus Species 03/25/19 20:50 Blood Blood Culture - Final Staphylococcus Simulans Impressions: Abdomen/Pelvis CT 03/25/19 19:56 IMPRESSION: 1. Edema in the medial left thigh, likely cellulitis. There is a packed subcutaneous wound, but no abscess on these images. Note that the edema extends more distally than this exam. 2. Slightly enlarged left inguinal lymph node, likely reactive. 3. Small left renal calculus without hydronephrosis 4. Small hiatal hernia 5. Previous cholecystectomy Lower Extremity CT 03/28/19 00:00 IMPRESSION: Please see combined report for performance of procedure and radiologic supervision and interpretation. Pelvis CT 03/28/19 00:00 IMPRESSION: Successful drainage of fluid collection. No additional abscess identified. Assessment and Plan - Diagnosis (1) Abscess of left thigh Is this a current diagnosis for this admission?: Yes Plan: 03/27/2019-the patient had incision and drainage with packing. Surgery change the dressing this morning. The patient is complaining of pain. I have expanded the nonnarcotic analgesia regimen. The patient may likely be able to go home tomorrow with oral antibiotic therapy. The wound culture is growing gram- positive cocci in chains which is most likely Streptococcus. With her morbid obesity there is likely a lot of friction with the thighs and this could cause irritation and be a factor leading to infection in this area. There is one blood culture bottle positive for staph species. This may likely be a contaminant. We will continue current antibiotics until identification of bacteria is available. 03/28/2019-with a positively identified beta-hemolytic strep group be from the initial abscess culture it is very surprising that the patient's infection seems to have worsened. This could be due to a second abscess that was found by surgery today. The patient will be going to the operating room again later today. 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 Despite not showing up on a Gram stain it is certainly possible that yeast can be involved with this infection especially since it did not seem to respond to the IV Zosyn. The patient is worried about MRSA but I told her no methicillin-resistant staph has been found in any of the samples already submitted. Surgery has expanded the antibiotic profile by discontinuing the Zosyn and starting levofloxacin and metronidazole. Because of the possibility of yeast involvement I will start micafungin. If there is no evidence of yeast or fungus by culture then I will discontinue this medication. With her diabetes she is prone to infections and yeast is certainly amongst the common ones. 03/29/2019-the patient underwent a second surgery yesterday. Still has a larger wound. According to surgery there is clean tissue at the base. Her dressing was changed this morning. 03/30/2019-final results of the initial culture of the left thigh abscess revealed group B strep but there were anaerobic organisms isolated as well. The addition of metronidazole should make a big difference. Because there was no evidence of yeast on the Gram stain I am going to discontinue the micafungin. The antibiotic therapy should be sufficient. (2) Diabetes mellitus type 2 in obese Is this a current diagnosis for this admission?: Yes Plan: 03/27/2019-the patient's hemoglobin A1c was 8.0. Diabetes in addition to her morbid obesity would make her prone to infections in the groin. Because her Accu-Cheks are elevated I have taken the liberty of starting her on low-dose metformin. We will continue to monitor Accu-Cheks. She is also on low-dose long-acting insulin and sliding scale. Evidently this is a new diagnosis for her. She will need follow-up as an outpatient. 03/28/2019-in addition to the low-dose Lantus I have instituted a sliding scale. Accu-Cheks will continue at meals and DE likely add bedtime check as well. Will adjust medications based on her Accu-Cheks. Hopefully the low-dose metformin that I instituted will help as well. When the patient resumes an oral diet we will make sure it is a controlled carbohydrate diet. 03/29/2019-continue current regimen as the patient exhibits good glucose control. We will continue to monitor Accu-Cheks and adjust therapy accordingly. 03/30/2019-continue current regimen as Accu-Cheks are within a reasonable range. (3) Hypertension Qualifiers: Hypertension type: essential hypertension Qualified Code(s): I10 - Essential (primary) hypertension Is this a current diagnosis for this admission?: Yes Plan: 03/27/2019-would continue to encourage low-sodium diet. Blood pressure slightly elevated but this is most likely due to pain. We will continue to monitor. 03/28/2019-blood pressures are normal today. The pain most likely contributed to spikes in her blood pressure yesterday. No antihypertensive medication required at this time. Continue to monitor blood pressures. 03/29/2019-vital signs indicate reasonable blood pressure control. Continue to monitor. Currently not on any medication but will initiate antihypertensive medications based on blood pressure. 03/30/2019-blood pressure appears to be reasonably controlled. She still has episodes of increased blood pressure but this could be related to pain or her emotional state. No additional medications at this time. (4) Morbid obesity Is this a current diagnosis for this admission?: Yes Plan: 03/27/2019-BMI is 50. Morbid obesity is likely contributing to her diabetes and as noted above creating mechanical issues with the inside of her thighs making her susceptible to infection. Will suggest aggressive weight loss which will benefit diabetes as well. 03/28/2019-we reviewed the patient's problems with skin fold moisture management and yeast infections. I explained the use of the product Interdry Ag. I abuse this extensively in wound care. It is a moisture wicking product that contains silver for antimicrobial effect. I explained that post discharge this would be an excellent product for the patient. We also discussed the importance of weight loss especially with her underlying diabetes and skin fold management issues. With the inter-dry the patient's skin fold moisture should be very well managed and this will reduce the incidence of irritation and infection. 03/29/2019-we did discuss weight management. The patient is aware of the need to lose weight. This has been a challenge partly because of psychosocial issues. Many antidepressants can in fact cause weight gain. 03/30/2019-the patient is aware that this is a significant contributing issue and healthcare concerns. Hopefully she will undertake an aggressive diet. She is trying to avoid sweets and carbohydrates at this time. (5) Depression Qualifiers: Depression Type: unspecified Qualified Code(s): F32.9 - Major depressive disorder, single episode, unspecified Is this a current diagnosis for this admission?: Yes Plan: 03/28/2019-the patient was tearful during this encounter. Clearly she is overwhelmed and disappointed with her current clinical course. We discussed antidepressant therapy. She states that she has been on citalopram in the past with good effect. She was also on Lamictal at that time. Because Lamictal dosing should not be interrupted and must be tapered up slowly I will initiate citalopram therapy at this time. Lamictal can be reinstituted after discharge. 03/29/2019-the patient citalopram was reinitiated. She has tolerated this in e past. Post discharge she will be able to reinstitute her Lamictal and possibly utilize an antidepressant without weight gaining adverse effects. 03/30/2019-extremely depressed and overwhelmed with the current healthcare issues. Continue citalopram. She would benefit from follow-up with a primary care provider. Consider alternative antidepressant that does not have weight gain as a secondary effect and she will likely resume her Lamictal. (6) Tricuspid regurgitation Qualifiers: Cardiac valve disease etiology: etiology unspecified Qualified Code(s): I07.1 - Rheumatic tricuspid insufficiency Is this a current diagnosis for this admission?: Yes Plan: 03/29/2019-after the exam I inquired if the patient had a history of heart murmur. She in fact stated that in the past she has had a heart murmur. She did have an echocardiogram and it revealed leaking of the tricuspid valve. At the time of some of her physician encounters the murmur was undetectable. Since this is previously documented and evaluated no further imaging studies at this time. 03/30/2019-stable at this time. - Plan Summary Summary: 03/27-await final results of cultures before changing antibiotic therapy. If the primary bacterium is a strep then Augmentin would be an excellent choice. Also under consideration would be the positive blood culture which may likely be a coagulase-negative staph and this is typically a contaminant. The patient may very well be able to go home tomorrow. The was a medic in the [employer] and told me that he would be comfortable with dressing changes at home. 03/28/2019-antibiotic changes as noted above. Unfortunately the patient will require further debridement and this will be performed today. New cultures will be obtained and these will include anaerobic bacteria and fungus. 03/30/2019-with the final results of the culture the presence of anaerobic organisms may have led to slow resolution. The new antibiotic regimen should be adequate. I will discontinue the antifungal therapy since there is no evidence of presence of yeast. This should have been observed on the Gram stain as there is been no antifungal agent to suppress them. Unfortunately the bigger issue is her lack of healthcare insurance. Discharge planning is working extremely hard to obtain jorge care from [facility] for the VAC. She is also trying to arrange for jorge care from home health as well as the wound care center. Antibiotics will also be a concern since she has no prescription coverage. Treatment of the anaerobes and group B strep however, might be successful with reasonably priced generic antibiotics. - Time Time Spent with patient: 25-34 minutes Medications reviewed and adjusted accordingly: Yes Anticipated discharge: Home
[2019-03-30] MEDS: CITALOPRAM HYDROBROMIDE 20 MG TABLET PO SCH (22:21)
[2019-03-31] MEDS: METRONIDAZOLE 500 MG/NS RTU 500 MG/100 ML RTUPB IV SCH ×2 (06:15→14:57)
[2019-03-31] MEDS: KETOROLAC TROMETHAMINE INJ/PF 30 MG/1 ML SDV IV SCH ×3 (06:15→17:55)
[2019-03-31 06:18] LABS: ABSOLUTE EOSINOPHILS # (AUTO) 0.2 10^3/uL (0.0-0.6); ABSOLUTE LYMPHOCYTES (AUTO) 1.2 10^3/uL (0.5-4.7); ABSOLUTE MONOCYTES (AUTO) 0.5 10^3/uL (0.1-1.4); ABSOLUTE NEUT (AUTO) 4.8 10^3/uL (1.7-8.2); BASOPHILS % (AUTO) 0.7 % (0-2); EOSINOPHILS % (AUTO) 2.4 % (0-6); HEMATOCRIT 34.9 % (36.0-47.0); HEMOGLOBIN 12.1 g/dL (12.0-15.5); LYMPHOCYTES % (AUTO) 17.3 % (13-45); MEAN CORPUSCULAR HEMOGLOBIN 30.4 pg (27.0-33.4); MEAN CORPUSCULAR HGB CONC 34.6 g/dL (32.0-36.0); MEAN CORPUSCULAR VOLUME 88 fl (80-97); MONOCYTES % (AUTO) 7.7 % (3-13); PLATELET COUNT 226 10^3/uL (150-450); RED BLOOD COUNT 3.97 10^6/uL (3.72-5.28); RED CELL DISTRIBUTION WIDTH 13.5 % (11.5-14.0); SEGMENTED NEUTROPHILS % (AUTO) 71.9 % (42-78); TOTAL CELLS COUNTED % (AUTO) 100 %; WHITE BLOOD COUNT 6.7 10^3/uL (4.0-10.5)
[2019-03-31 06:52] LABS: ANION GAP 11 (5-19); BLOOD UREA NITROGEN 16 mg/dL (7-20); CALCIUM 9.2 mg/dL (8.4-10.2); CARBON DIOXIDE 26 mmol/L (22-30); CHLORIDE 103 mmol/L (98-107); GLUCOSE 132 mg/dL (75-110); POTASSIUM 4.1 mmol/L (3.6-5.0)
[2019-03-31 06:56] LABS: APPEARANCE,URINE CLEAR; BILIRUBIN,URINE NEGATIVE (NEGATIVE); CALCIUM OXALATE CRYSTALS,URINE MODERATE /HPF; COLOR,URINE YELLOW; GLUCOSE, URINE NEGATIVE (NEGATIVE); KETONES,URINE NEGATIVE (NEGATIVE); LEUKOCYTE ESTERASE,URINE TRACE (NEGATIVE); NITRITE,URINE NEGATIVE (NEGATIVE); PROTEIN,URINE NEGATIVE (NEGATIVE); URINE SPECIFIC GRAVITY 1.019; UROBILINOGEN,URINE NEGATIVE mg/dL (<2.0)
--- NOTE | 2019-03-31 07:54 | PDOC PROGRESS REPORT ---
Subjective Progress Note for:: 03/31/19 Subjective:: Patient doing well, no complaints Reason For Visit: THIGH CELLULITIS, DIABETES Physical Exam Vital Signs: Temp Pulse Resp BP Pulse Ox 97.7 F 58 L 16 121/78 95 03/30/19 20:00 03/30/19 20:00 03/30/19 20:00 03/30/19 20:00 03/30/19 20:00 Intake & Output 03/30/19 03/31/19 04/01/19 06:59 06:59 06:59 Intake Total 1680 1530 Output Total 625 2400 Balance 1055 -870 Weight 136 kg 136 kg Gentrourinary exam: PRESENT: other - Right groin = surgical wound granulating, covered with wound VAC dressings, no erythema, edema, or tenderness on palpation Results Laboratory Results: 03/31/19 05:23 03/31/19 05:23 03/31/19 03/31/19 03/31/19 05:23 05:23 06:00 WBC 6.7 RBC 3.97 Hgb 12.1 Hct 34.9 L MCV 88 MCH 30.4 MCHC 34.6 RDW 13.5 Plt Count 226 Seg Neutrophils % 71.9 Sodium 139.6 Potassium 4.1 Chloride 103 Carbon Dioxide 26 Anion Gap 11 BUN 16 Creatinine 0.65 Est GFR ( Amer) > 60 Glucose 132 H Calcium 9.2 Urine Color YELLOW Urine Appearance CLEAR Urine pH 5.0 Ur Specific [place] 1.019 Urine Protein NEGATIVE Urine Glucose (UA) NEGATIVE Urine Ketones NEGATIVE Urine Blood SMALL H Urine Nitrite NEGATIVE Ur Leukocyte Esterase TRACE H Urine WBC (Auto) 1 Urine RBC (Auto) 3 03/25/19 18:40 Blood Blood Culture - Final NO GROWTH IN 5 DAYS 03/26/19 10:48 Thigh - Abscess Gram Stain - Final 03/26/19 10:48 Thigh - Abscess Wound Culture - Final Prevotella Species Peptostreptococcus Species Viridans Streptococcus Impressions: Abdomen/Pelvis CT 03/25/19 19:56 IMPRESSION: 1. Edema in the medial left thigh, likely cellulitis. There is a packed subcutaneous wound, but no abscess on these images. Note that the edema extends more distally than this exam. 2. Slightly enlarged left inguinal lymph node, likely reactive. 3. Small left renal calculus without hydronephrosis 4. Small hiatal hernia 5. Previous cholecystectomy Lower Extremity CT 03/28/19 00:00 IMPRESSION: Please see combined report for performance of procedure and radiologic supervision and interpretation. Pelvis CT 03/28/19 00:00 IMPRESSION: Successful drainage of fluid collection. No additional abscess identified. Assessment & Plan - Diagnosis (1) Abscess of left thigh Is this a current diagnosis for this admission?: Yes (2) Cellulitis of left thigh Is this a current diagnosis for this admission?: Yes - Time Time Spent with patient: 25-34 minutes - Plan Summary Plan Summary: Assessment: Postop day #5 and 3 following debridement and wide excision right groin recurrent infected hidradenitis with abscess Vital signs stable, patient afebrile White blood cell count normal Physical exam shows a healing right groin wound, granulating, with no surrounding erythema, edema, or tenderness No acute general surgery issues identified in this patient Plan: Patient can be discharged to home anytime by the general surgery viewpoint Wet-to-dry normal saline dressing changes twice daily Shower twice a day before dressing changes, no tub bath allowed until wound is clearly closed Wear spandex or similar underwear to hold dressings in place so to avoid the use of tape Augmentin 875 mg p.o. twice daily for 7 days then stop Tylenol and Aleve or Toradol p.o. as needed pain at the discharge Follow-up in the surgery clinic in [address] Moseley
[2019-03-31] MEDS: INSULIN REG, HUMAN 100 UNIT/ML 3 ML VIAL (PYX) SUBCUT SCH ×2 (09:16→14:38)
[2019-03-31] MEDS: NICOTINE 14 MG/24 HR PATCH.TD24 TD SCH (09:19)
[2019-03-31] MEDS: METFORMIN HCL 500 MG TABLET PO SCH ×2 (09:19→17:28)
[2019-03-31] MEDS: ENOXAPARIN SODIUM INJ 40 MG/0.4 ML DISP.SYRIN SUBCUT SCH (09:20)
[2019-03-31] MEDS: LEVOFLOXACIN 750 MG/D5W RTU 750 MG/150 ML RTUPB IV SCH (09:20)
[2019-03-31] MEDS: DOCUSATE SODIUM 100 MG CAPSULE PO SCH ×2 (09:20→17:28)
[2019-03-31] MEDS: NYSTATIN TOPICAL POWDER 15 GM TP SCH (09:28)
[2019-03-31] MEDS: OXYCODONE-ACETAMINOPHEN 5-325 MG TABLET PO PRN (09:32)
[2019-03-31] MEDS: POLYETHYLENE GLYCOL 3350 POWDER 17 GM/1 PACKET PO SCH (10:54)
--- NOTE | 2019-03-31 13:37 | PDOC DISCHARGE SUMMARY ---
Impression - Admit/DC Date/PCP Admission Date/Primary Care Provider: 03/25/19 23:48 Discharge Date: 03/31/19 - Discharge Diagnosis (1) Abscess of left thigh Is this a current diagnosis for this admission?: Yes (2) Diabetes mellitus type 2 in obese Is this a current diagnosis for this admission?: Yes (3) Hypertension Is this a current diagnosis for this admission?: Yes (4) Morbid obesity Is this a current diagnosis for this admission?: Yes (5) Depression Is this a current diagnosis for this admission?: Yes (6) Tricuspid regurgitation Is this a current diagnosis for this admission?: Yes - Assessment Summary: 03/27-await final results of cultures before changing antibiotic therapy. If the primary bacterium is a strep then Augmentin would be an excellent choice. Also under consideration would be the positive blood culture which may likely be a coagulase-negative staph and this is typically a contaminant. The patient may very well be able to go home tomorrow. The was a medic in the [employer] and told me that he would be comfortable with dressing changes at home. 03/28/2019-antibiotic changes as noted above. Unfortunately the patient will require further debridement and this will be performed today. New cultures will be obtained and these will include anaerobic bacteria and fungus. 03/30/2019-with the final results of the culture the presence of anaerobic organisms may have led to slow resolution. The new antibiotic regimen should be adequate. I will discontinue the antifungal therapy since there is no evidence of presence of yeast. This should have been observed on the Gram stain as there is been no antifungal agent to suppress them. Unfortunately the bigger issue is her lack of healthcare insurance. Discharge planning is working extremely hard to obtain jorge care from [facility] for the VAC. She is also trying to arrange for jorge care from home health as well as the wound care center. Antibiotics will also be a concern since she has no prescription coverage. Treatment of the anaerobes and group B strep however, might be successful with reasonably priced generic antibiotics. - Additional Information Resuscitation Status: Full Code Discharge Diet: Diabetic Discharge Activity: Activity As Tolerated, Balance Activity w/Rest Referrals: [facility] [Outside] ([facility] DOES NOT HAVE ANY APPT UNTIL Apr PLEASE CALL THEN FOR A FOLLOW UP APPT) WOUND CARE [Outside] Prescriptions: Amox Tr/Potassium Clavulanate [Augmentin 875-125 mg Tablet] 1 tab PO BID 7 Days #14 tablet Citalopram Hydrobromide [Celexa 20 mg Tablet] 20 mg PO QHS 14 Days #14 tablet Metformin HCl [Glucophage 500 mg Tablet] 500 mg PO BIDACBS 14 Days #28 tablet Oxycodone HCl/Acetaminophen [Percocet 5-325 mg Tablet] 1 - 2 tab PO Q6HP PRN 7 Days #14 tablet PRN Reason: For Pain Home Medications: Amox Tr/Potassium Clavulanate [Augmentin 875-125 mg Tablet] 1 tab PO BID 7 Days #14 tablet 03/31/19 Citalopram Hydrobromide [Celexa 20 mg Tablet] 20 mg PO QHS 14 Days #14 tablet 03/31/19 Docusate Sodium [Colace 100 mg Capsule] 100 mg PO BID capsule 03/31/19 Metformin HCl [Glucophage 500 mg Tablet] 500 mg PO BIDACBS 14 Days #28 tablet 03/31/19 Oxycodone HCl/Acetaminophen [Percocet 5-325 mg Tablet] 1 - 2 tab PO Q6HP PRN 7 Days #14 tablet 03/31/19 Polyethylene Glycol 3350 [Miralax Powder 17 gm/Packet] 17 gm PO DAILY powd.pack 03/31/19 History of Present Illiness History of Present Illness: EVERARDO STALLWORTH is a 38 year old female with a history of diabetes and morbid obesity. She presents with an abscess and cellulitis of the left upper thigh medial aspect. She has had subcutaneous abscesses in the past. She was admitted for surgical therapy and antibiotics Hospital Course Hospital Course: Difficult course. After for surgical excision there was ongoing erythema appearing slightly worse. A second area higher in the groin was identified. She then had a second surgical excision. She has a history of depression and the overwhelming nature of the illness, worries about no health insurance as well as worries about family were exhibited with tearful episodes and feelings of being overwhelmed. She has been on antibiotic therapy. A VAC dressing was applied. Unfortunately because of no health insurance VAC therapy was approved but without home health or frequent visits to the wound care center the negative pressure therapy is inappropriate due to inadequate resources. It was decided that the patient will go home with gauze dressings as this is more manageable for the patient and family. Physical Exam Vital Signs: Temp Pulse Resp BP Pulse Ox 98.7 F 62 16 137/83 H 97 03/31/19 08:00 03/31/19 08:00 03/31/19 08:00 03/31/19 08:00 03/31/19 08:00 Intake & Output 03/30/19 03/31/19 04/01/19 06:59 06:59 06:59 Intake Total 1680 1530 Output Total 625 2400 Balance 1055 -870 Weight 136 kg 136 kg General appearance: PRESENT: mild distress, morbidly obese Respiratory exam: PRESENT: clear to auscultation gema, symmetrical, unlabored. ABSENT: rales, rhonchi, tachypnea, wheezes Cardiovascular exam: PRESENT: RRR, +S1, +S2 GI/Abdominal exam: PRESENT: normal bowel sounds, soft. ABSENT: distended, tenderness Musculoskeletal exam: PRESENT: ambulatory Neurological exam: PRESENT: alert, awake, oriented to person, oriented to place, oriented to time, oriented to situation, CN II-XII grossly intact Psychiatric exam: PRESENT: depressed. ABSENT: agitated, anxious Results Laboratory Results: WBC 6.7 10^3/uL (4.0-10.5) 03/31/19 05:23 RBC 3.97 10^6/uL (3.72-5.28) 03/31/19 05:23 Hgb 12.1 g/dL (12.0-15.5) 03/31/19 05:23 Hct 34.9 % (36.0-47.0) L 03/31/19 05:23 MCV 88 fl (80-97) 03/31/19 05:23 MCH 30.4 pg (27.0-33.4) 03/31/19 05:23 MCHC 34.6 g/dL (32.0-36.0) 03/31/19 05:23 RDW 13.5 % (11.5-14.0) 03/31/19 05:23 Plt Count 226 10^3/uL (150-450) 03/31/19 05:23 Lymph % (Auto) 17.3 % (13-45) 03/31/19 05:23 [place] % (Auto) 7.7 % (3-13) 03/31/19 05:23 Eos % (Auto) 2.4 % (0-6) 03/31/19 05:23 Baso % (Auto) 0.7 % (0-2) 03/31/19 05:23 Absolute Neuts (auto) 4.8 10^3/uL (1.7-8.2) 03/31/19 05:23 Absolute Lymphs (auto) 1.2 10^3/uL (0.5-4.7) 03/31/19 05:23 Absolute Monos (auto) 0.5 10^3/uL (0.1-1.4) 03/31/19 05:23 Absolute Eos (auto) 0.2 10^3/uL (0.0-0.6) 03/31/19 05:23 Absolute Basos (auto) 0.0 10^3/uL (0.0-0.2) 03/31/19 05:23 Total Counted 100 03/26/19 04:57 Seg Neutrophils % 71.9 % (42-78) 03/31/19 05:23 Seg Neuts % (Manual) 83 % (42-78) H 03/26/19 04:57 Lymphocytes % (Manual) 8 % (13-45) L 03/26/19 04:57 Monocytes % (Manual) 9 % (3-13) 03/26/19 04:57 Eosinophils % (Manual) 0 % (0-6) 03/26/19 04:57 Basophils % (Manual) 0 % (0-2) 03/26/19 04:57 Abs Neuts (Manual) 13.3 10^3/uL (1.7-8.2) H 03/26/19 04:57 Abs Lymphs (Manual) 1.3 10^3/uL (0.5-4.7) 03/26/19 04:57 Abs Monocytes (Manual) 1.4 10^3/uL (0.1-1.4) 03/26/19 04:57 Absolute Eos (Manual) 0.0 10^3/uL (0.0-0.6) 03/26/19 04:57 Abs Basophils (Manual) 0.0 10^3/uL (0.0-0.2) 03/26/19 04:57 Toxic Granulation SLIGHT 03/26/19 04:57 Platelet Comment ADEQUATE 03/26/19 04:57 Poikilocytosis SLIGHT 03/26/19 04:57 Anisocytosis SLIGHT 03/26/19 04:57 Tear Drop Cells SLIGHT 03/26/19 04:57 Sodium 139.6 mmol/L (137-145) 03/31/19 05:23 Potassium 4.1 mmol/L (3.6-5.0) 03/31/19 05:23 Chloride 103 mmol/L (98-107) 03/31/19 05:23 Carbon Dioxide 26 mmol/L (22-30) 03/31/19 05:23 Anion Gap 11 (5-19) 03/31/19 05:23 BUN 16 mg/dL (7-20) 03/31/19 05:23 Creatinine 0.65 mg/dL (0.52-1.25) 03/31/19 05:23 Est GFR ( Amer) > 60 (>60) 03/31/19 05:23 Est GFR (MDRD) Non-Af > 60 (>60) 03/31/19 05:23 Glucose 132 mg/dL (75-110) H 03/31/19 05:23 POC Glucose 110 mg/dL (70-110) 03/31/19 13:00 Hemoglobin A1c % 8.0 % (4.7-6.0) H 03/26/19 04:57 Calcium 9.2 mg/dL (8.4-10.2) 03/31/19 05:23 Total Bilirubin 1.0 mg/dL (0.2-1.3) 03/25/19 18:40 Direct Bilirubin 0.2 mg/dL (0.0-0.4) 03/25/19 18:40 Neonat Total Bilirubin Not Reportable 03/25/19 18:40 Neonat Direct Bilirubin Not Reportable 03/25/19 18:40 Neonat Indirect Bili Not Reportable 03/25/19 18:40 AST 25 U/L (14-36) 03/25/19 18:40 ALT 26 U/L (<35) 03/25/19 18:40 Alkaline Phosphatase 66 U/L (38-126) 03/25/19 18:40 Total Protein 7.5 g/dL (6.3-8.2) 03/25/19 18:40 Albumin 4.2 g/dL (3.5-5.0) 03/25/19 18:40 Urine Color YELLOW 03/31/19 06:00 Urine Appearance CLEAR 03/31/19 06:00 Urine pH 5.0 (5.0-9.0) 03/31/19 06:00 Ur Specific [place] 1.019 03/31/19 06:00 Urine Protein NEGATIVE mg/dL (NEGATIVE) 03/31/19 06:00 Urine Glucose (UA) NEGATIVE mg/dL (NEGATIVE) 03/31/19 06:00 Urine Ketones NEGATIVE mg/dL (NEGATIVE) 03/31/19 06:00 Urine Blood SMALL (NEGATIVE) H 03/31/19 06:00 Urine Nitrite NEGATIVE (NEGATIVE) 03/31/19 06:00 Urine Bilirubin NEGATIVE (NEGATIVE) 03/31/19 06:00 Urine Urobilinogen NEGATIVE mg/dL (<2.0) 03/31/19 06:00 Ur Leukocyte Esterase TRACE (NEGATIVE) H 03/31/19 06:00 Urine WBC (Auto) 1 /HPF 03/31/19 06:00 Urine RBC (Auto) 3 /HPF 03/31/19 06:00 Squamous Epi Cells Auto <1 /HPF 03/31/19 06:00 Calcium Oxalate Cr Auto MODERATE /HPF 03/31/19 06:00 Urine Mucus (Auto) RARE /LPF 03/31/19 06:00 Urine Ascorbic Acid NEGATIVE (NEGATIVE) 03/31/19 06:00 Urine HCG, Qual NEGATIVE (NEGATIVE) 03/26/19 08:42 Time Trough Drawn 0522 03/27/19 05:22 Vancomycin Trough < 5.0 ug/mL (5.0-20.0) L 03/27/19 05:22 Impressions: Abdomen/Pelvis CT 03/25/19 19:56 IMPRESSION: 1. Edema in the medial left thigh, likely cellulitis. There is a packed subcutaneous wound, but no abscess on these images. Note that the edema extends more distally than this exam. 2. Slightly enlarged left inguinal lymph node, likely reactive. 3. Small left renal calculus without hydronephrosis 4. Small hiatal hernia 5. Previous cholecystectomy Lower Extremity CT 03/28/19 00:00 IMPRESSION: Please see combined report for performance of procedure and radiologic supervision and interpretation. Pelvis CT 03/28/19 00:00 IMPRESSION: Successful drainage of fluid collection. No additional abscess identified. Plan Health Concerns: Resolution of infection. Smoking cessation and weight loss. Resuming therapy for depression Plan of Treatment: Moist saline dressings twice a day with gentle soap and water. Back on citalopram for depression. She would benefit from resuming Lamictal under the care of an outpatient physician. Resume metformin for diabetes and stop smoking. Finally she should engage in aggressive diet for weight loss management. Goals: Complete healing of the incision, weight loss and smoking cessation Time Spent: Greater than 30 Minutes Stroke Is this a Stroke Patient?: No Acute Heart Failure - Is this a Heart Failure Patient?: No
[2019-03-31 16:48] VITALS: BP 160/86
== END 2019-03-31 17:50 | disposition home health service (06) | DRG 571 ==
LOC: ER 16:26 → EH 23:48 → 5 03-26 01:28
PROVIDERS: ADMIT Internal Medicine; ATTEND Internal Medicine
PROC: 0J9C0ZZ Drainage of Pelvic Region Subcutaneous Tissue and Fascia, Open Approach (ICD-10-PCS; 2019-03-25)
PROC: 0JDM0ZZ Extraction of Left Upper Leg Subcutaneous Tissue and Fascia, Open Approach (ICD-10-PCS; 2019-03-26)
PROC: 0JBM0ZZ Excision of Left Upper Leg Subcutaneous Tissue and Fascia, Open Approach (ICD-10-PCS; principal; 2019-03-28 12:15)
DX: L02.416 Cutaneous abscess of left lower limb (principal); L02.214 Cutaneous abscess of groin; Z68.43 Body mass index [BMI] 50.0-59.9, adult; L03.314 Cellulitis of groin; L03.116 Cellulitis of left lower limb; K21.9 Gastro-esophageal reflux disease without esophagitis; F41.9 Anxiety disorder, unspecified; E66.01 Morbid (severe) obesity due to excess calories; L73.2 Hidradenitis suppurativa; B95.1 Streptococcus, group B, as the cause of diseases classified elsewhere; B96.89 Other specified bacterial agents as the cause of diseases classified elsewhere; E11.9 Type 2 diabetes mellitus without complications; Z91.14 Patient's other noncompliance with medication regimen; Z91.11 Patient's noncompliance with dietary regimen; E78.5 Hyperlipidemia, unspecified; I10 Essential (primary) hypertension; M17.11 Unilateral primary osteoarthritis, right knee; F31.9 Bipolar disorder, unspecified; Z90.49 Acquired absence of other specified parts of digestive tract; F17.200 Nicotine dependence, unspecified, uncomplicated; Z79.84 Long term (current) use of oral hypoglycemic drugs; I07.1 Rheumatic tricuspid insufficiency; Z59.7 Insufficient social insurance and welfare support
CPT/HCPCS: 00400; 36415; 72193; 74177; 80048; 80053; 80202; 81001; 81025; 82565; 82962; 83036; 85025; 87040; 87070; 87075; 87077; 87101; 87150; 87186; 87205; 88304; 90686; 93005; 93010; 96361; 96365; 96367; 96375; 99283; A6266; J0131; J0330; J1100; J1170; J1644; J1650; J1815; J1885; J1956; J2248; J2250; J2270; J2310; J2405; J2543; J2704; J3010; J3370; J3490; J7030; J7040; J7050; J7060

== ENCOUNTER 2019-04-14 02:23 | Emergency (ER) | payer SELFPAY ==
[2019-04-14 05:28] LABS: ABSOLUTE BASOPHILS # (AUTO) 0.1 10^3/uL (0.0-0.2); ABSOLUTE EOSINOPHILS # (AUTO) 0.2 10^3/uL (0.0-0.6); ABSOLUTE LYMPHOCYTES (AUTO) 2.2 10^3/uL (0.5-4.7); ABSOLUTE MONOCYTES (AUTO) 0.8 10^3/uL (0.1-1.4); ABSOLUTE NEUT (AUTO) 6.1 10^3/uL (1.7-8.2); EOSINOPHILS % (AUTO) 1.7 % (0-6); HEMATOCRIT 36.6 % (36.0-47.0); HEMOGLOBIN 13.3 g/dL (12.0-15.5); LYMPHOCYTES % (AUTO) 23.3 % (13-45); MEAN CORPUSCULAR HEMOGLOBIN 31.5 pg (27.0-33.4); MEAN CORPUSCULAR HGB CONC 36.4 g/dL (32.0-36.0); MEAN CORPUSCULAR VOLUME 87 fl (80-97); MONOCYTES % (AUTO) 8.3 % (3-13); PLATELET COUNT 230 10^3/uL (150-450); RED BLOOD COUNT 4.22 10^6/uL (3.72-5.28); RED CELL DISTRIBUTION WIDTH 14.2 % (11.5-14.0); SEGMENTED NEUTROPHILS % (AUTO) 65.7 % (42-78); TOTAL CELLS COUNTED % (AUTO) 100 %; WHITE BLOOD COUNT 9.3 10^3/uL (4.0-10.5)
[2019-04-14 05:49] LABS: ANION GAP 6 (5-19); BLOOD UREA NITROGEN 12 mg/dL (7-20); CALCIUM 10.1 mg/dL (8.4-10.2); CARBON DIOXIDE 28 mmol/L (22-30); CHLORIDE 105 mmol/L (98-107); GLUCOSE 229 mg/dL (75-110); POTASSIUM 4.3 mmol/L (3.6-5.0)
[2019-04-14] MEDS ORDERED: KETOROLAC TROMETHAMINE INJ/PF 30 MG/1 ML SDV IV ONE (06:33)
[2019-04-14] MEDS ORDERED: MORPHINE SULFATE 10 MG/ML INJ IV ONE (06:33)
[2019-04-14] MEDS ORDERED: ONDANSETRON HCL INJ/PF 4 MG/2 ML SDV IV ONE (06:33)
[2019-04-14] MEDS ORDERED: CEFTRIAXONE 1 GM/D5W RTU 1 GM/50 ML RTUPB IV ONE (06:33)
--- NOTE | 2019-04-14 06:39 | ER Document Report ---
ED General - General Chief Complaint: Incision Drainage Stated Complaint: JAW SWELLING,WOUND RECHECK Time Seen by Provider: 04/14/19 06:13 TRAVEL OUTSIDE OF THE [place] IN LAST 30 DAYS: No - HPI Notes: Patient is a 38-year-old female who presents emergency department for evaluation. She has a history of multiple abscesses, had an abscess drained multiple times in the operating room over [place]. Unfortunately patient does not have insurance. She was sent home on antibiotics following this debrideme nt, unable to afford wound VAC. Dressing changes have been being handled by . On Tuesday it was noted that the area became more red, had foul- smelling drainage, and the patient's became concerned it was infected. No fevers or chills. No nausea or vomiting. Her appetite is been diminished, but this is secondary to tooth pain. The patient does not currently have a dentist, but is seeking care through [facility]. Over the last 24 hours she is developed pain in her left mandible consistent with a tooth ache. She states she is noticed some subtle swelling in that area. She is speaking and swallowing without difficulty. Pain is worsened by cold and pressure, she is not getting much relief from [id number] medications. - Related Data Allergies/Adverse Reactions: No Known Allergies Allergy (Verified 01/15/19 14:40) Home Medications: None Past Medical History - General Information source: Patient - Social History Smoking Status: Current Every Day Smoker Family History: Arthritis, CAD, CVA, DM, Hyperlipidemia, Hypertension Patient has suicidal ideation: No Patient has homicidal ideation: No - Past Medical History Cardiac Medical History: Reports: Hx Hypercholesterolemia, Hx Hypertension - borderline no meds Denies: Hx Coronary Artery Disease, Hx Heart Attack Pulmonary Medical History: Denies: Hx Asthma, Hx Bronchitis, Hx COPD, Hx Pneumonia Neurological Medical History: Denies: Hx Cerebrovascular Accident, Hx Seizures Endocrine Medical History: Reports: Hx Diabetes Mellitus Type 2 Renal/ Medical History: Reports: Hx Ovarian Cysts. Denies: Hx Peritoneal Dialysis GI Medical History: Reports: Hx Gastroesophageal Reflux Disease Musculoskeletal Medical History: Reports Hx Arthritis - rt knee, Reports Hx Musculoskeletal Trauma Psychiatric Medical History: Reports: Hx Bipolar Disorder, Hx Depression Past Surgical History: Reports: Hx Section, Hx Cholecystectomy, Hx Genitourinary Surgery - Immunizations Immunizations up to date: Yes Hx Diphtheria, Pertussis, Tetanus Vaccination: Yes Review of Systems - Review of Systems Constitutional: No symptoms reported, See HPI EENT: See HPI Cardiovascular: No symptoms reported Respiratory: No symptoms reported Gastrointestinal: No symptoms reported Genitourinary: No symptoms reported Musculoskeletal: No symptoms reported Skin: See HPI Neurological/Psychological: No symptoms reported Physical Exam - Vital signs Vitals: Temp Pulse Resp BP Pulse Ox 98.5 F 100 18 174/88 H 99 04/14/19 02:28 04/14/19 02:28 04/14/19 02:28 04/14/19 02:28 04/14/19 02:28 - Notes Notes: This is a morbidly obese 38-year-old female who appears her stated age in no acute distress. Vital signs reviewed, please refer to chart. Head is normocephalic, atraumatic. Pupils equal round, reactive to light. Oral mucosa is moist. Overall dentition is in fair condition. Attention to the left mandibular region yields large caries in the first left mandibular molar. There is some minimal gingival edema surrounding and tenderness in the bugle mucosa. I do not appreciate any submandibular or sublingual swelling. No submandibular lymph nodes. No facial erythema or induration is noted. Neck is supple without meningismus. Heart is regular rate and rhythm. Lungs are clear to auscultation bilaterally. Abdomen is soft, nontender, normoactive bowel sounds throughout. Extremities without cyanosis, clubbing. Posterior calves are nontender. Per ipheral pulses are equal. Patient is awake, alert, neurological exam is nonfocal. Examination of the skin yields a wound left to heal by second intention on the left groin region, approximately 12 x 8 cm. There is some purulent appearing drainage inside the wound. There is a diffuse erythema that tracks into the inguinal region and down the thigh. With associated calor. The inguinal folds superior to the wound are moist, consistent with a likely candidal infection. Neurovascularly intact to the left lower extremity. Course - Re-evaluation Re-evalutation: 04/14/19 06:38 Patient presents the emergency department for evaluation. She presents in short with issues with 2 separate areas. First, patient does have significant dental caries. She needs to see a dentist. She is treated with Toradol. He is further given pain medication for the pain in her mouth as well as her leg. In regards to her wound and cellulitis, I do not appreciate any significant induration or fluctuance. She is not having any vomiting. Blood cultures were obtained which did not have any significant leukocytosis. I did review her cultures. As a result of these culture results, I did opt to treat with Rocephin. We will continue to monitor. 04/14/19 09:33 Patient does not have a significant leukocytosis. She does not have any signs of abscess at this time. I believe outpatient treatment is appropriate. She had been on Augmentin as an outpatient when she was discharged, that seemed to do well for her. Plus she can afford this. She has an appointment with follow- up care next week at [facility]. She has been to see a surgeon and I am. Otherwise she is to continue wound care as instructed previously. Analia paige will likely cover any occult infection going on in her dentition. She will be sent home with a short amount of pain medication and close follow-up. She is to return to the ED with worsening. 04/14/19 09:37 - Vital Signs Vital signs: Temp Pulse Resp BP Pulse Ox 98.1 F 100 20 151/88 H 94 04/14/19 06:11 04/14/19 02:28 04/14/19 07:01 04/14/19 07:01 04/14/19 07:01 - Laboratory Result Diagrams: 04/14/19 05:15 04/14/19 05:15 Laboratory results interpreted by me: 04/14/19 04/14/19 05:15 05:15 MCHC 36.4 H RDW 14.2 H Glucose 229 H Discharge - Discharge Clinical Impression: Cellulitis of left groin, Cellulitis of left thigh, Dental caries Condition: Stable Disposition: HOME, SELF-CARE Instructions: Cellulitis ([facility]), Dentist Additional Instructions: You need to see a dentist as soon as possible. Please take all the antibiotic as prescribed until gone. Continue wound care as previously instructed. Follow-up with the [facility] as scheduled next week. If you develop fevers, vomiting, increased pain, swelling, or any other new or concerning symptoms, you need to return immediately to the emergency department for evaluation.
[2019-04-14] MEDS ORDERED: NYSTATIN TOPICAL POWDER 15 GM TP ONE (07:42)
[2019-04-14] MEDS ORDERED: HYDROCODONE/ACETAMINOPHEN 5-325 MG (6 TAB/ER DISP) PO PRN (09:36)
[2019-04-14 10:05] VITALS: BP 138/84
== END 2019-04-14 10:14 | disposition home or self-care (01) ==
LOC: ER 02:23
DX: L03.314 Cellulitis of groin (principal); L03.116 Cellulitis of left lower limb; K02.9 Dental caries, unspecified; R22.0 Localized swelling, mass and lump, head; R63.0 Anorexia; K08.89 Other specified disorders of teeth and supporting structures; R68.84 Jaw pain; Z98.890 Other specified postprocedural states; I10 Essential (primary) hypertension; E11.9 Type 2 diabetes mellitus without complications
CPT/HCPCS: 99283; 96375; 96365; 36415; 87040; 84703; 85025; 80048; J3490; J1885; J2270; J2405; J0696